=== PATIENT | female | born 2000 | race Two or more races ===

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

== ENCOUNTER 2021-01-07 13:44 | Outpatient (REF) | payer MEDICAID, SELFPAY ==
[2021-01-08 13:48] LABS: CT PCR NOT DETECTED (Not Detect.)
[2021-01-08 13:49] LABS: NG PCR NOT DETECTED (Not Detect.)
[2021-01-09 14:44] LABS: BV Int Neg Control Negative (Negative); BV Int Pos Control Positive (Positive)
== END 2021-01-07 13:45 | disposition home or self-care (01) ==
LOC: HO.LAB 13:44
PROVIDERS: Visit Provider Advanced Practice Midwife
DX: N89.8 Other specified noninflammatory disorders of vagina (principal); Z20.2 Contact with and (suspected) exposure to infections with a predominantly sexual mode of transmission
CPT/HCPCS: 87480; 87491; 87510; 87591; 87660; 99212

== ENCOUNTER → 2021-01-12 13:54 | Outpatient (BNVA) | payer MEDICAID, SELFPAY | PROVIDERS: Visit Provider Advanced Practice Midwife | DX: Z30.42 Encounter for surveillance of injectable contraceptive (principal) | CPT/HCPCS: 96372; 99211 ==

== ENCOUNTER 2021-05-11 11:29 | Outpatient (REF) | payer MEDICAID, SELFPAY ==
[2021-05-12 03:45] LABS: CT PCR NOT DETECTED (Not Detect.); NG PCR NOT DETECTED (Not Detect.)
[2021-05-12 13:11] LABS: BV Int Neg Control Negative (Negative); BV Int Pos Control Positive (Positive)
== END 2021-05-11 11:30 | disposition home or self-care (01) ==
LOC: HO.LAB 11:29
PROVIDERS: Visit Provider Advanced Practice Midwife
DX: Z01.419 Encounter for gynecological examination (general) (routine) without abnormal findings (principal); N89.8 Other specified noninflammatory disorders of vagina; Z20.2 Contact with and (suspected) exposure to infections with a predominantly sexual mode of transmission; Z79.899 Other long term (current) drug therapy; Z32.02 Encounter for pregnancy test, result negative
CPT/HCPCS: 81025; 87480; 87491; 87510; 87591; 87660; 99212

== ENCOUNTER 2021-09-16 21:54 | Emergency (ER) | payer MEDICAID, SELFPAY ==
[2021-09-16 22:04] VITALS: BP 109/82; PULSE 76; RESP 15; TEMP 36.2; O2SAT 98; BMI 19.3
--- NOTE | 2021-09-16 22:25 | ED_ITS ---
HPI - General Adult General Chief complaint: General Medical Stated complaint: throat/head pain Time Seen by Provider: 09/16/21 22:12 Source: patient Mode of arrival: ambulatory Limitations: no limitations History of Present Illness HPI narrative: patient comes to the emergency room complaining of 3 days of sore throat, bilateral ear pain. Patient denies fever. Patient requesting a test, states she is behind on her menstrual. , no vaginal bleeding. Related Data Home Medications Medication Instructions Recorded Confirmed albuterol sulfate 90 mcg/actuation 1 inh inhalation Q4-6H PRN 03/24/20 05/11/21 breath activated powder inhaler sertraline 50 mg tablet 50 mg PO DAILY 05/11/21 05/11/21 Previous Rx's Medication Instructions Recorded metronidazole 0.75 % vaginal gel 1 appful vaginal BEDTIME 5 days 05/13/21 (Metrogel Vaginal) #70 grams Allergies Allergy/AdvReac Type Severity Reaction Status Date / Time No Known Allergies Allergy Verified 05/11/21 11:35 [No Known Allergies*] Review of Systems Review of Systems: Constitutional : No Weight loss, No Fever, No Chills, No Night Sweats, No Fatigue, No Malaise ENT/Mouth : No Hearing loss, Complaining of mild bilateralEar Pain, mild Nasal Congestion, No Sinus Pain, No Hoarseness, mild sore throat, No Rhinorrhea, No Swallowing Difficulty Eyes: No Eye Pain, No Swelling, No Redness, No Foreign Body, No Discharge, No Vision Changes Cardiovascular : No Chest Pain, No SOB, No Dyspnea on Exertion, No Orthopnea, No Edema, No Palpitations Respiratory : No Cough, No Sputum, No Wheezing, No Smoke Exposure, No Dyspnea Gastrointestinal : No Nausea, No Vomiting, No Diarrhea, No Constipation, No abdominal Pain, No Hematochezia, No Melena Genitourinary : late in her menstrual., No Dysuria, No Urinary Frequency, No Hematuria, No Urinary Incontinence, No Urgency, No Flank Pain, No Urinary Flow Changes, No Hesitancy Musculoskeletal : No joint pain, No Myalgias, No Joint Swelling Skin : No Skin Lesions, No rash Neuro : No Weakness, No Numbness, No Paresthesias, No Loss of Consciousness, No Dizziness, No Headache Psych : No Anxiety/Panic, No Depression, No SI/HI/AH/VH, No Social Issues, Heme/Lymph: No Bruising, No Bleeding,No Lymphadenopathy Endocrine : No Polyuria, No Polydipsia, No Temperature Intolerance [facility] Past Medical History Medical History COVID-19 Family History Family History Maternal Grandmother Hx of breast cancer History of uterine cancer Maternal Aunt History of uterine cancer Brother History of attention deficit hyperactivity disorder (ADHD) Social History Social History Household Members: Children Alcohol intake: never Patient Tobacco Use Status: Never used Tobacco Advance Directives: No Advance Directives Information Provided: No Gender identity: Female Physical Exam ED Vital Signs: Vital Signs - 24 hr 09/16/21 22:04 Temperature 97.2 F Pulse Rate 76 Respiratory Rate 15 Blood Pressure 109/82 Pulse Oximetry 98 Oxygen Delivery Method Room Air BMI result Body Mass Index 19.3 Const Other: Appearance: Alert. Oriented X3. No acute distress. Eyes: Pupils equal, round and reactive to light. ENT: Pharynx Mildly erythematous, no exudates, no abscesses visualized Neck: Normal inspection. Neck supple. No lymph nodes noted. No crepitus CVS: Normal heart rate and rhythm. Pulses normal. Normal S1 and S2 Respiratory: No respiratory distress. Breath sounds normal. No Wheezing. No rales Abdomen: Soft and nontender. No rigidity. No distention. Skin: Skin warm and dry. Normal skin color. Normal skin turgor. Extremities: No lower extremity edema. No Lacerations. No Rash Neuro: Oriented X 3. No motor deficit. No sensory deficit. Moving all extremities. No slurred speech. CN 2 through 12 grossly intact Psych: calm, cooperative, normal affect Course Course Course Narrative: patient was given 1 dose of p.o. dexamethasone and lidocaine for symptomatic relief. test pending. COVID/flu/ rapid strep test negative, urine test negative Medical Decision Making Lab Data Labs: Lab Results 09/16/21 09/16/21 09/16/21 Range/Units 22:14 22:14 22:14 Urine Test (NEGATIVE) COVID-19 (KIERA) Negative (Negative) COVID-19 Clin Com See Note Influenza Type A (MARSHALL) Negative (Negative) Influenza Type B (MARSHALL) Negative (Negative) Influenza A & B Note See Note S. pyogenes GrpA MARSHALL Negative (Negative) 09/16/21 Range/Units 22:57 Urine Test NEGATIVE (NEGATIVE) COVID-19 (KIERA) (Negative) COVID-19 Clin Com Influenza Type A (MARSHALL) (Negative) Influenza Type B (MARSHALL) (Negative) Influenza A & B Note S. pyogenes GrpA MARSHALL (Negative) Discharge Plan Discharge Clinical Impression: Acute viral pharyngitis Patient Disposition: Home, Self-Care Instructions: Pharyngitis (ED) Additional Instructions: Your test is negative. Please follow-up with your primary care physician tomorrow. If you have any worsening or new symptoms, please return to the emergency room or call 911 Prescriptions: No Action metronidazole [Metrogel Vaginal] 0.75 % gel 1 appful vaginal BEDTIME 5 Days Qty: 70 0RF albuterol sulfate 90 mcg/actuation aerosol powdr breath activated 1 inh inhalation Q4-6H PRN sertraline 50 mg tablet 50 mg PO DAILY
[2021-09-16 22:32] LABS: IDNOW Serial# 08D9AD1C; Strep A Nucleic Acid Negative (Negative)
[2021-09-16 22:41] LABS: COVID-19 Test Negative (Negative); IDNOW Serial# 16C4AD1C
[2021-09-16 22:42] LABS: Influenza A Negative (Negative); Influenza B2 Negative (Negative)
[2021-09-16] MEDS: Lidocaine HCl Viscous 2 % 15 ML SOLUTION MUCOUS MEM (22:52)
[2021-09-16] MEDS: dexAMETHasone sod phosphate 4 MG/ML VIAL IVPUSH (22:52)
[2021-09-16 23:05] LABS: UPreg QC Valid YES; Urine Pregnancy NEGATIVE (NEGATIVE)
== END 2021-09-16 23:46 | disposition home or self-care (01) ==
PROVIDERS: Emergency Provider Emergency Medicine
DX: J02.8 Acute pharyngitis due to other specified organisms (principal); Z32.02 Encounter for pregnancy test, result negative; Z20.822 Contact with and (suspected) exposure to COVID-19
CPT/HCPCS: 36415; 81025; 87502; 87635; 87651; 96374; 99282; 99284; J1100

== ENCOUNTER 2021-09-24 11:21 | Outpatient (REF) | payer MEDICAID, SELFPAY ==
[2021-09-24 15:48] LABS: CT PCR NOT DETECTED (Not Detect.); NG PCR NOT DETECTED (Not Detect.)
[2021-09-25 15:00] LABS: BV Int Neg Control Negative (Negative); BV Int Pos Control Positive (Positive)
== END 2021-09-24 11:22 | disposition home or self-care (01) ==
LOC: HO.LAB 11:21
PROVIDERS: Visit Provider Advanced Practice Midwife
DX: O26.899 Other specified pregnancy related conditions, unspecified trimester (principal); N89.8 Other specified noninflammatory disorders of vagina; Z20.2 Contact with and (suspected) exposure to infections with a predominantly sexual mode of transmission
CPT/HCPCS: 81025; 87255; 87480; 87491; 87510; 87591; 87660; 99212

== ENCOUNTER 2021-10-11 18:13 | Emergency (ER) | payer MEDICAID, SELFPAY ==
[2021-10-11 18:18] VITALS: BP 126/86; PULSE 104; RESP 18; TEMP 37.2; O2SAT 99; BMI 18.8
[2021-10-11 19:21] LABS: Basophils Percent Auto 0.2 % (0-2); Hematocrit 34.1 % (37.0-47.0); Hemoglobin 11.8 g/dl (12.0-16.0); Imm Gran Abs Auto 0.02 X10*3/uL (0.00-0.03); Imm Gran Pct Auto 0.3 % (0.0-0.4); Lymphocytes Absolute Auto 0.9 X10*3/uL (1.2-4.9); Lymphocytes Percent Auto 14.7 % (20-40); MANUAL DIFF FLAG NO; Mean Corpuscular HGB Conc 34.6 g/dl (31.0-35.0); Mean Corpuscular Hemoglobin 28.7 pg (27.0-33.0); Mean Platelet Volume 10.6 fL (9.4-12.3); Monocytes Absolute Auto 0.4 X10*3/uL (0.1-1.2); Monocytes Percent Auto 7.4 % (2-11); Neutrophils Absolute Auto 4.6 x10*3/uL (2.0-8.3); Neutrophils Percent Auto 77.4 % (45-73); Platelet Count 176 X10*3/uL (160-400); Red Blood Count 4.11 X10*6/uL (4.20-5.50); Red Cell Distribution Width 12.2 % (11.0-16.0); White Blood Count 5.9 X10*3/uL (4.8-10.8)
[2021-10-11 19:39] LABS: Alanine Aminotransferase 14 U/L (0-31); Albumin Level 4.2 g/dL (3.5-5.0); Alkaline Phosphatase 80 U/L (39-117); Anion Gap 11 (12-20); Aspartate Amino Transferase 15 U/L (5-31); Bilirubin Total 0.3 mg/dL (0.0-1.0); Blood Urea Nitrogen 6 mg/dL (9-16); Calcium 8.3 mg/dL (8.4-10.2); Carbon Dioxide 24 mmol/L (22-29); Chloride 101 mmol/L (96-108); Creatinine Clr Calc Pharmacy 134.4; Estimated Glomerular Filt Rate > 60; Glucose Random 93 mg/dL (60-115); Potassium 3.2 mmol/L (3.3-5.1); Sodium 133 mmol/L (135-145); Total Protein 6.9 g/dL (6.5-8.0)
== END 2021-10-11 22:18 | disposition left against medical advice (07) ==
PROVIDERS: Emergency Provider Emergency Medicine
DX: R50.9 Fever, unspecified (principal); E86.0 Dehydration; Z79.899 Other long term (current) drug therapy
CPT/HCPCS: 36415; 80053; 84702; 85025; 99281; 99283

== ENCOUNTER → 2021-10-18 14:00 | Outpatient (BNVA) | payer MEDICAID, SELFPAY | PROVIDERS: Visit Provider Advanced Practice Midwife | DX: O99.511 Diseases of the respiratory system complicating pregnancy, first trimester (principal); J45.909 Unspecified asthma, uncomplicated; O99.341 Other mental disorders complicating pregnancy, first trimester; F41.8 Other specified anxiety disorders; Z3A.09 9 weeks gestation of pregnancy | CPT/HCPCS: 99212 ==

== ENCOUNTER 2021-10-19 09:38 | Outpatient (REF) | payer MEDICAID, SELFPAY ==
[2021-10-19 11:33] LABS: Hematocrit 35.2 % (37.0-47.0); Hemoglobin 11.9 g/dl (12.0-16.0); Mean Corpuscular HGB Conc 33.8 g/dl (31.0-35.0); Mean Corpuscular Hemoglobin 28.5 pg (27.0-33.0); Mean Corpuscular Volume 84.4 fL (80.0-98.0); Mean Platelet Volume 10.8 fL (9.4-12.3); Platelet Count 305 X10*3/uL (160-400); Red Blood Count 4.17 X10*6/uL (4.20-5.50); Red Cell Distribution Width 12.5 % (11.0-16.0); White Blood Count 7.1 X10*3/uL (4.8-10.8)
[2021-10-19 11:44] LABS: Glucose 1 Hour PP 50gm Dose 113 mg/dL (60-140)
[2021-10-19 12:04] LABS: HBsAGNum1 0.22 S/CO (0.00-0.99); HIV AB/AG Nonreactive (Nonreactive); HIV Num 1 0.08 S/CO (0.00-0.99); Hepatitis B Surface Antigen Negative (Negative); ~HepC Num1 0.04 S/CO (0.00-0.79); ~Hepatitis C Antibody Nonreactive (Nonreactive)
[2021-10-19 16:00] LABS: Amphetamine Screen Urine Not Detected (Not Detect); Barbiturates, Urine Not Detected (Not Detect); Benzodiazepines Screen Urine Not Detected (Not Detect); Cannabinoid Screen Urine POSITIVE (Not Detect); Cocaine Screen Urine Not Detected (Not Detect); Fentanyl, urine Not Detected (Not Detect); Opiate Screen Urine Not Detected (Not Detect); Phencyclidine Screen Urine Not Detected (Not Detect)
[2021-10-20 07:09] LABS: Syphilis Screen Nonreactive (Nonreactive)
[2021-10-21 01:51] LABS: Rubella IgG Antibody 1.36 Index
== END 2021-10-19 09:39 | disposition home or self-care (01) ==
LOC: HO.LAB 09:38
PROVIDERS: Visit Provider Advanced Practice Midwife
DX: Z32.01 Encounter for pregnancy test, result positive (principal)
CPT/HCPCS: 80307; 85027; 86762; 86780; 86787; 86803; 86850; 86900; 87086; 87340; 87389

== ENCOUNTER 2021-11-04 11:19 | Outpatient (REF) | payer MEDICAID, SELFPAY ==
[2021-11-05 03:26] LABS: CT PCR NOT DETECTED (Not Detect.); NG PCR NOT DETECTED (Not Detect.)
[2021-11-05 13:19] LABS: BV Int Neg Control Negative (Negative); BV Int Pos Control Positive (Positive)
== END 2021-11-04 11:20 | disposition home or self-care (01) ==
LOC: HO.LAB 11:19
PROVIDERS: Visit Provider Advanced Practice Midwife
DX: Z34.81 Encounter for supervision of other normal pregnancy, first trimester (principal); Z3A.11 11 weeks gestation of pregnancy; Z20.2 Contact with and (suspected) exposure to infections with a predominantly sexual mode of transmission
CPT/HCPCS: 87480; 87491; 87510; 87591; 87660; 99212

== ENCOUNTER → 2021-11-18 14:13 | Outpatient (BNVA) | payer MEDICAID, SELFPAY | PROVIDERS: Visit Provider Surgery | DX: S20.359A Superficial foreign body of unspecified front wall of thorax, initial encounter (principal); L08.9 Local infection of the skin and subcutaneous tissue, unspecified | CPT/HCPCS: 99202 ==

== ENCOUNTER → 2021-12-02 11:03 | Outpatient (BNVA) | payer MEDICAID, SELFPAY | PROVIDERS: Visit Provider Advanced Practice Midwife | DX: Z34.82 Encounter for supervision of other normal pregnancy, second trimester (principal); Z36.3 Encounter for antenatal screening for malformations; Z3A.15 15 weeks gestation of pregnancy | CPT/HCPCS: 99212 ==

== ENCOUNTER 2021-12-23 09:05 | Outpatient (REF) | payer MEDICAID, SELFPAY ==
[2021-12-23 09:10] VITALS: BP 112/65; PULSE 90; RESP 16; TEMP 36.6; O2SAT 100
[2021-12-23 09:11] VITALS: BMI 19.1
--- NOTE | 2021-12-23 09:44 | W.PM.OPN ---
Operative Note Operative Note Date of Service: 12/23/21 Narrative: Preoperative diagnosis: Foreign body anterior neck Postoperative diagnosis: Same Procedure: Removal of foreign body anterior neck Surgeon: Mina Chaudhary MD Transformation Architect: No physician Anesthesia: Local Indications for procedure: 21-year-old female patient status post piercing in the neck with a stud. Piercing has broken and remains within the subcutaneous tissue. She presents today for removal of the remaining foreign body. Operative findings: Piercing of neck as noted above Specimen: Foreign body Estimated blood loss: Less than 1 mL Complications: None Procedure details: Patient was brought to the minor surgery suite and placed in a supine position. The site of surgery was confirmed by the patient. Patient confirmed informed consent as well. Skin was then prepped with Betadine and draped in a sterile fashion. Lidocaine 2% with with epinephrine was then infiltrated around the foreign body. A small transverse incision was then made adjacent to the foreign body and the underlying flange gently removed through the incision. Pressure was held to maintain hemostasis. Skin edges were then reapproximated using skin glue. The patient tolerated the procedure well. Discharged to home in stable condition.
== END 2021-12-23 09:06 | disposition home or self-care (01) ==
LOC: HO.MS 09:05
PROVIDERS: Visit Provider Surgery
PROC: (CPT 10120; principal; 2021-12-23 09:10)
DX: S10.85XA Superficial foreign body of other specified part of neck, initial encounter (principal); Z18.89 Other specified retained foreign body fragments; L08.9 Local infection of the skin and subcutaneous tissue, unspecified; W45.8XXA Other foreign body or object entering through skin, initial encounter; Y93.89 Activity, other specified; Y92.9 Unspecified place or not applicable; Y99.8 Other external cause status
CPT/HCPCS: 10120; 88300

== ENCOUNTER → 2021-12-30 11:27 | Outpatient (BNVA) | payer MEDICAID, SELFPAY | PROVIDERS: PCP Registered Nurse; Visit Provider Advanced Practice Midwife | DX: O98.812 Other maternal infectious and parasitic diseases complicating pregnancy, second trimester (principal); B37.31 Acute candidiasis of vulva and vagina; Z3A.19 19 weeks gestation of pregnancy | CPT/HCPCS: 99212 ==

== ENCOUNTER → 2022-02-03 14:32 | Outpatient (BNVA) | payer MEDICAID, SELFPAY | PROVIDERS: PCP Registered Nurse; Visit Provider Advanced Practice Midwife | DX: O43.112 Circumvallate placenta, second trimester (principal); Z3A.23 23 weeks gestation of pregnancy | CPT/HCPCS: 99212 ==

== ENCOUNTER 2022-03-03 12:20 | Outpatient (REF) | payer MEDICAID, SELFPAY ==
[2022-03-03 14:21] LABS: Hematocrit 32.9 % (37.0-47.0); Hemoglobin 11.5 g/dl (12.0-16.0); Mean Corpuscular Hemoglobin 29.9 pg (27.0-33.0); Mean Corpuscular Volume 85.7 fL (80.0-98.0); Mean Platelet Volume 10.9 fL (9.4-12.3); Platelet Count 202 X10*3/uL (160-400); Red Blood Count 3.84 X10*6/uL (4.20-5.50); Red Cell Distribution Width 13.2 % (11.0-16.0)
[2022-03-03 15:02] LABS: Glucose 1 Hour PP 50gm Dose 74 mg/dL (60-140)
[2022-03-04 08:04] LABS: Syphilis Screen Nonreactive (Nonreactive)
== END 2022-03-03 12:21 | disposition home or self-care (01) ==
LOC: HO.LAB 12:20
PROVIDERS: Visit Provider Advanced Practice Midwife
DX: O43.112 Circumvallate placenta, second trimester (principal); Z3A.27 27 weeks gestation of pregnancy
CPT/HCPCS: 36415; 82950; 85027; 86780; 99212

== ENCOUNTER 2022-09-13 10:35 | Outpatient (REF) | payer MEDICAID, SELFPAY ==
--- NOTE | ~2022-09-13 | XR_ITS ---
EXAMINATION: XR HAND, RIGHT CLINICAL INFORMATION: Injury COMPARISON: None available. TECHNIQUE: PA, lateral, and oblique views of the right hand. FINDINGS: The bones and soft tissues are normal. No fracture. Alignment is anatomic. Joint spaces are maintained. No erosions or soft tissue calcifications. XR/XR hand RT min 3V IMPRESSION: Normal right hand.
== END 2022-09-13 10:36 | disposition home or self-care (01) ==
LOC: HO.HHCX 10:35
PROVIDERS: Visit Provider Internal Medicine
DX: M79.641 Pain in right hand (principal)
CPT/HCPCS: 73130

== ENCOUNTER 2022-12-31 12:18 | Emergency (ER) | payer MEDICAID, SELFPAY ==
[2022-12-31 12:46] VITALS: BP 106/72; PULSE 102; RESP 16; TEMP 36; O2SAT 99
--- NOTE | 2022-12-31 12:48 | ED.ABDPAIN ---
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 no fevers, chills, URI symptoms, urinary symptoms, chest pain, shortness of breath, headache, neck pain, neck stiffness, skin rash. Related Data Home Medications Medication Instructions Recorded Confirmed albuterol sulfate 90 mcg/actuation 1 inh inhalation Q4-6H PRN 03/24/20 02/03/22 breath activated powder inhaler prenat.vits,anthony,[id number] 1 tab PO DAILY 12/02/21 02/03/22 Previous Rx's Medication Instructions Recorded ondansetron 4 mg disintegrating 4 mg PO Q6H PRN nausea and 12/31/22 tablet vomiting #10 tabs Allergies Allergy/AdvReac Type Severity Reaction Status Date / Time No Known Allergies Allergy Verified 12/31/22 12:46 [No Known Allergies*] Review of Systems Review of Systems Yes all other systems are reviewed and are negative Constitutional: Reports no additional constitutional complaints, Denies body ache(s), Denies chills, Denies fever(s), Denies headache(s) and Denies weakness Eyes: Reports no additional eye complaints and Denies change in vision Reports system reviewed and no additional complaints, except as documented, Denies dizziness, Denies headache(s), Denies nasal congestion, Denies nasal discharge and Denies neck pain Cardiovascular: Reports no additional cardiovascular complaints, Denies chest pain, Denies leg edema and Denies dyspnea Respiratory: Reports no additional respiratory complaints, Denies cough and Denies dyspnea Gastrointestinal: Reports no additional gastrointestinal complaints, Denies abdominal pain, Reports diarrhea, Reports nausea and Reports vomiting Genitourinary: Reports no additional female genitourinary complaints and Denies urinary incontinence Musculoskeletal: Reports no additional musculoskeletal complaints, Reports back pain, Denies arthralgias, Denies joint swelling, Denies neck pain, Denies numbness and Denies tingling Skin/Breast: Reports system reviewed and no additional complaints, except as docu and Denies rash Reports system reviewed and no additional complaints, except as documented, Denies Abnormal speech present, Denies dizziness, Denies headache(s), Denies numbness, Denies tingling and Denies weakness [facility] Past Medical History Attestation statement: The following information was validated with the patient. Source: old records reviewed and nursing notes reviewed Medical History Personal history of asthma COVID-19 History of depression Personal history of anxiety disorder Family history of asthma and other chronic lower respiratory diseases Surgical History History of retained foreign body fully removed (12/23/21) Family History Family History Maternal Grandmother Hx of breast cancer Diabetes mellitus Maternal Aunt No problems noted. Brother History of attention deficit hyperactivity disorder (ADHD) Daughter Family history of sickle cell trait Autism Mother Hydrocephalus Social History Social History Household Members: Children Housing: Apartment Are you a primary coronary care unit nurse to a significant other at home: No Do you presently have visiting nurse or other home services: No Alcohol intake: never Patient Tobacco Use Status: Never used Tobacco Agree to transfusion: Yes Advance Directives: No Advance Directives Information Provided: Yes service: No Current occupational status: unemployed Gender identity: Female Physical Exam ED Vital Signs: Vital Signs - 24 hr 12/31/22 12:46 Temperature 96.8 F Pulse Rate 102 H Respiratory Rate 16 Blood Pressure 106/72 Pulse Oximetry 99 Oxygen Delivery Method Room Air BMI result Body Mass Index 20.0 Const General: cooperative, healthy appearing, comfortable and no acute distress Orientation/consciousness: patient oriented x3 Limitations: no limitations HENPA Head: Yes normal to inspection Ears: hearing grossly normal bilaterally General nose exam: Normal external nose present Face and sinus: Yes normal facial exam Mouth: Normal oral and palatal mucosa present Throat: Yes posterior oropharynx normal Eyes General: appearance normal, both eyes and all related structures Pupils: Equal, round and reactive pupils present Neck Neck: Yes normal visual inspection Chest Chest palpation & inspection: normal inspection of the chest Resp Effort & Inspection: normal respiratory effort Auscultation: clear to auscultation bilaterally Cardio Rate: regular rate Rhythm: regular rhythm Peripheral pulses: Peripheral pulses 2+ throughout GI Inspection: Yes normal to inspection and No distended Palpation (GI): Soft to palpation and nontender Auscultation: normal bowel sounds General: Yes CVA tenderness ( Bilateral) Back/Spine/Pelvis Back: CVA tenderness ( Bilateral) Thoracic/Lumbar Spine: thoracic and lumbar spine normal to inspection Skin General skin exam: no rashes or lesions noted Neuro General: patient oriented x3, no focal motor deficits and normal sensation to monofilament Cranial nerves: Yes Equal, round and reactive pupils present Cognition (Neuro): normal cognition Speech: No Abnormal speech present Gait exam (Neuro): Normal gait present Motor exam (neuro): 5/5 motor strength present throughout Extrem General: Yes normal to inspection Course Course Course Narrative: RME - 22 yo Japanese speaking female presents to the ER for evaluation of acute onset of bilateral upper abdominal/lower rib pain, nausea, vomiting and diarrhea that started last night. Described as a pressure of being squeezed in her lower ribs and upper abdomen bilaterally. Has some congestion and left ear pain w/ muffling. Plan: labs, CXR, viral swabs Reevaluation(s) Reevaluation #1: 1330- labs show leukocytosis. Patient will receive IV fluids, antiemetics, analgesia Reevaluation #2: have after hydration we did a repeat CBC which shows an improving leukocytosis. Patient is drinking sandra milana with no additional vomiting episodes. All of her labs unremarkable. Her initial urine was contaminated but she had a repeat urinalysis which was unremarkable. Her viral testing was negative her chest x-ray shows no 7 signs of infection. This is likely a viral syndrome. Recommend supportive care at home. Reviewed worrisome signs and symptoms of when to return to the emergency room. Comfortable plan for discharge home. Medical Decision Making Medical Decision Making [facility] Narrative: 22-year-old female previously healthy here with complaints of flank pain bilateral, vomiting, diarrhea with waking. no fevers, chills, URI symptoms, urinary symptoms, chest pain, shortness of breath, headache, neck pain, neck stiffness, skin rash. on exam patient has bilateral CVA tenderness. No focal abdominal pain. Her vitals are stable. Will obtain labs, UA, urine , COVID testing, chest x-ray. Differential Diagnosis Differential Diagnoses: The differential diagnosis associated with the presentation includes Pyelonephritis, renal colic, UTI viral syndrome, gastroenteritis low concern for appendicitis with no focal abdominal pain Admission/Observation Consideration of admission/observation: Escalation of care including admission/observation considered patient is tolerating p.o.. Her repeat labs are improved. Her workup in the emergency room was unremarkable. I do not feel that she needs additional imaging or admission for IV hydration. Lab Data MDM Lab Attestation statement: I reviewed the patient's lab results. Mild leukocytosis 12/31/22 16:05 12/31/22 12:56 Labs: Lab Results 12/31/22 12/31/22 12/31/22 Range/Units 12:56 13:39 13:45 WBC 19.5 H (4.8-10.8) X10*3/uL RBC 5.46 D (4.20-5.50) X10*6/uL Hgb 15.4 D (12.0-16.0) g/dl Hct 44.4 D (37.0-47.0) % MCV 81.3 (80.0-98.0) fL MCH 28.2 (27.0-33.0) pg MCHC 34.7 (31.0-35.0) g/dl RDW 12.7 (11.0-16.0) % Plt Count 335 D (160-400) X10*3/uL MPV 10.8 (9.4-12.3) fL Immature Gran % (Auto) 0.4 (0.0-0.4) % Neut % (Auto) 90.3 H (45-73) % Lymph % (Auto) 4.6 L (20-40) % [place] % (Auto) 3.6 (2-11) % Eos % (Auto) 0.8 (0-4) % Baso % (Auto) 0.3 (0-2) % Lymph # (Auto) 0.9 L (1.2-4.9) X10*3/uL [place] # (Auto) 0.7 (0.1-1.2) X10*3/uL Eos # (Auto) 0.2 (0.0-0.4) X10*3/uL Baso # (Auto) 0.1 (0.0-0.2) X10*3/uL Abs Immat Gran (auto) 0.08 H (0.00-0.03) X10*3/uL Absolute Neuts (auto) 17.6 H (2.0-8.3) x10*3/uL Absolute Nucleated RBC 0.000 (0.0-0.012) X10*3/uL Nucleated RBC % (auto) 0.0 (0.0-0.2) /100WBC Smear Tech's Comments VERIFIED Sodium 139 (135-145) mmol/L Potassium 4.3 D (3.3-5.1) mmol/L Chloride 105 (96-108) mmol/L Carbon Dioxide 21 L (22-29) mmol/L Anion Gap 17 (12-20) BUN 14 (9-16) mg/dL Creatinine 0.84 (0.5-1.4) mg/dL Estim Creat Clear Calc 91.3 Estimated GFR > 60 Random Glucose 99 (60-115) mg/dL Lactic Acid 0.8 (0.5-2.0) mmol/L Calcium 10.3 H D (8.4-10.2) mg/dL Magnesium 2.0 (1.6-2.6) mg/dL Total Bilirubin 0.4 (0.0-1.0) mg/dL Direct Bilirubin 0.2 (0.0-0.5) mg/dL AST 17 (5-31) U/L ALT 12 (0-31) U/L Alkaline Phosphatase 102 (39-117) U/L Total Protein 8.6 H (6.5-8.0) g/dL Albumin 5.1 H (3.5-5.0) g/dL Lipase 30 (8-78) U/L Beta HCG, Quant < 2 mIU/mL Urine Color Dark Yellow Urine Appearance Cloudy Urine pH 5.5 (5.0-9.0) Ur Specific [place] >= 1.030 H (1.005-1.025) Urine Protein 100 (2+) H (Neg-Trace) mg/dL Urine Glucose (UA) Negative (Negative) mg/dL Urine Ketones Trace (Negative) mg/dL Urine Blood Negative (Negative) Urine Nitrite Negative (Negative) Ur Leukocyte Esterase Small (1+) H (Negative) Urine RBC 3-5 H (0-2) /HPF Urine WBC 6-10 H (0-5) /HPF Ur Squamous Epith Cells >20 (0-2) /HPF Urine Bacteria 3+ (None Seen) Hyaline Casts >20 (0-2) /LPF Urine Test NEGATIVE (NEGATIVE) Influenza Type A (PCR) NEGATIVE (Negative) Influenza Type B (PCR) NEGATIVE (Negative) RSV RNA Qual (PCR) NEGATIVE (Negative) SARS-CoV-2 RNA (RT-PCR) NEGATIVE (Negative) 12/31/22 12/31/22 Range/Units 15:47 16:05 WBC 13.3 H (4.8-10.8) X10*3/uL RBC 4.40 (4.20-5.50) X10*6/uL Hgb 12.6 (12.0-16.0) g/dl Hct 36.1 L (37.0-47.0) % MCV 82.0 (80.0-98.0) fL MCH 28.6 (27.0-33.0) pg MCHC 34.9 (31.0-35.0) g/dl RDW 12.5 (11.0-16.0) % Plt Count 234 D (160-400) X10*3/uL MPV 10.5 (9.4-12.3) fL Immature Gran % (Auto) 0.4 (0.0-0.4) % Neut % (Auto) 88.2 H (45-73) % Lymph % (Auto) 7.5 L (20-40) % [place] % (Auto) 2.9 (2-11) % Eos % (Auto) 0.8 (0-4) % Baso % (Auto) 0.2 (0-2) % Lymph # (Auto) 1.0 L (1.2-4.9) X10*3/uL [place] # (Auto) 0.4 (0.1-1.2) X10*3/uL Eos # (Auto) 0.1 (0.0-0.4) X10*3/uL Baso # (Auto) 0.0 (0.0-0.2) X10*3/uL Abs Immat Gran (auto) 0.05 H (0.00-0.03) X10*3/uL Absolute Neuts (auto) 11.7 H (2.0-8.3) x10*3/uL Absolute Nucleated RBC 0.000 (0.0-0.012) X10*3/uL Nucleated RBC % (auto) 0.0 (0.0-0.2) /100WBC Smear Tech's Comments Sodium (135-145) mmol/L Potassium (3.3-5.1) mmol/L Chloride (96-108) mmol/L Carbon Dioxide (22-29) mmol/L Anion Gap (12-20) BUN (9-16) mg/dL Creatinine (0.5-1.4) mg/dL Estim Creat Clear Calc Estimated GFR Random Glucose (60-115) mg/dL Lactic Acid (0.5-2.0) mmol/L Calcium (8.4-10.2) mg/dL Magnesium (1.6-2.6) mg/dL Total Bilirubin (0.0-1.0) mg/dL Direct Bilirubin (0.0-0.5) mg/dL AST (5-31) U/L ALT (0-31) U/L Alkaline Phosphatase (39-117) U/L Total Protein (6.5-8.0) g/dL Albumin (3.5-5.0) g/dL Lipase (8-78) U/L Beta HCG, Quant mIU/mL Urine Color Yellow Urine Appearance Clear Urine pH 5.5 (5.0-9.0) Ur Specific [place] 1.025 (1.005-1.025) Urine Protein Negative (Neg-Trace) mg/dL Urine Glucose (UA) Negative (Negative) mg/dL Urine Ketones Negative (Negative) mg/dL Urine Blood Negative (Negative) Urine Nitrite Negative (Negative) Ur Leukocyte Esterase Negative (Negative) Urine RBC (0-2) /HPF Urine WBC (0-5) /HPF Ur Squamous Epith Cells (0-2) /HPF Urine Bacteria (None Seen) Hyaline Casts (0-2) /LPF Urine Test (NEGATIVE) Influenza Type A (PCR) (Negative) Influenza Type B (PCR) (Negative) RSV RNA Qual (PCR) (Negative) SARS-CoV-2 RNA (RT-PCR) (Negative) Independent Interpretation I performed an independent interpretation of an: Plain X-Ray Interpretation: I independently reviewed the x-ray and agree with the radiology report Radiology Impression Discussion of test interpretation with radiology: I have reviewed the radiologist's reading. Radiologist Impression: [place] [address] XRay Report Signed Patient: Ashanti Ontiveros MR#: [id number] : 2000 Acct:[id number] Age/Sex: 22 / F ADM Date: 12/31/22 Loc: .ED Attending Dr: Ordering Physician: Keri Robert Date of Service: 12/31/22 Procedure(s): XR chest 2V Accession Number(s): [id number] cc: Keri Robert; [facility]~ EXAMINATION: XR CHEST CLINICAL INFORMATION: Lower rib pain. COMPARISON: None available. TECHNIQUE: 2 views of the chest were obtained. FINDINGS: No significant abnormality is noted involving the heart, lungs, mediastinum, bony thorax or soft tissues. XR/XR chest 2V IMPRESSION: Unremarkable examination. Specifically, no radiographic evidence of any displaced rib fracture or hemopneumothorax or lung contusion is seen. Independent Historian Clinical information obtained from an independent historian. History obtained from or confirmed by: Friend Tests considered The following testing was considered but not selected: no focal abdominal pain to suggest need for CT abdomen and pelvis Prescription Management I considered prescription management with: Antibiotic Medications Administered Discontinued Medications Generic Name Dose Route Start Last Admin Trade Name Freq PRN Reason Stop Dose Admin Sodium Chloride 1,000 mls @ 999 mls/hr 12/31/22 13:12 12/31/22 14:50 Ns IV 12/31/22 14:12 Infused .Q1H1M STA Infusion Ketorolac Tromethamine 30 mg 12/31/22 13:12 12/31/22 13:46 Ketorolac Tromethamine 30 Mg/Ml Vial IVPUSH 12/31/22 13:13 30 mg ONCE ONE Administration Ondansetron HCl 4 mg 12/31/22 13:12 12/31/22 13:46 Ondansetron Hcl 4 Mg/2 Ml Vial IVPUSH 12/31/22 13:13 4 mg ONCE ONE Administration Discharge Plan Discharge Clinical Impression: Acute viral syndrome Patient Disposition: Home, Self-Care Instructions: Viral Syndrome (ED) Additional Instructions: alternate Motrin and Tylenol for pain or fever as needed Increase fluids, rest Return for any worsening symptoms Your COVID testing is negative alterne Motrin y Tylenol para el dolor o la fiebre seg?n sea necesario Aumentar l?quidos, descansar. Regrese si los s?ntomas empeoran. Espinosa prueba de COVID es negativa Prescriptions: New ondansetron 4 mg tablet,disintegrating 4 mg PO Q6H PRN (Reason: nausea and vomiting) Qty: 10 0RF No Action albuterol sulfate 90 mcg/actuation aerosol powdr breath activated 1 inh inhalation Q4-6H PRN prenat.vits,anthony,[id number] Tablet 1 tab PO DAILY Referrals: Susie Nascimento, [facility] [Primary Care Provider] - 1 week Interventions: ED Discharge Assessment Last Done: 12/31/22 16:35 Print Language: Japanese
[2022-12-31 13:17] LABS: Alanine Aminotransferase 12 U/L (0-31); Albumin Level 5.1 g/dL (3.5-5.0); Alkaline Phosphatase 102 U/L (39-117); Anion Gap 17 (12-20); Aspartate Amino Transferase 17 U/L (5-31); Bilirubin Direct 0.2 mg/dL (0.0-0.5); Bilirubin Total 0.4 mg/dL (0.0-1.0); Blood Urea Nitrogen 14 mg/dL (9-16); Calcium 10.3 mg/dL (8.4-10.2); Carbon Dioxide 21 mmol/L (22-29); Chloride 105 mmol/L (96-108); Creatinine Clr Calc Pharmacy 91.3; Estimated Glomerular Filt Rate > 60; Glucose Random 99 mg/dL (60-115); Lipase 30 U/L (8-78); Potassium 4.3 mmol/L (3.3-5.1); Sodium 139 mmol/L (135-145); Total Protein 8.6 g/dL (6.5-8.0)
[2022-12-31 13:39] LABS: HCG Quantitative < 2 mIU/mL
--- NOTE | 2022-12-31 13:50 | PC.NURSE ---
1st set of cultures obtained, medicated per MAY, 1L NS running.
== END 2022-12-31 16:38 | disposition home or self-care (01) ==
PROVIDERS: Physician Assistant; Emergency Provider Emergency Medicine Emergency Medical Services; PCP Registered Nurse
DX: B34.9 Viral infection, unspecified (principal); R11.2 Nausea with vomiting, unspecified; R10.10 Upper abdominal pain, unspecified; Z20.822 Contact with and (suspected) exposure to COVID-19; Z20.828 Contact with and (suspected) exposure to other viral communicable diseases
CPT/HCPCS: 0241U; 36415; 71046; 80048; 80076; 81001; 81003; 81025; 83605; 83690; 83735; 84702; 85025; 87040; 87086; 96361; 96374; 96375; 99283; 99284; J1885; J2405

== ENCOUNTER 2023-07-21 09:45 | Outpatient (REF) | payer MEDICAID, SELFPAY ==
[2023-07-22 06:54] LABS: CT PCR NOT DETECTED (Not Detect.); NG PCR NOT DETECTED (Not Detect.)
[2023-07-23 11:42] LABS: BV Int Neg Control Negative (Negative); BV Int Pos Control Positive (Positive)
== END 2023-07-21 09:46 | disposition home or self-care (01) ==
LOC: HO.LNP 09:45
PROVIDERS: PCP Registered Nurse; Visit Provider Advanced Practice Midwife
DX: Z12.4 Encounter for screening for malignant neoplasm of cervix (principal); Z11.51 Encounter for screening for human papillomavirus (HPV); N89.8 Other specified noninflammatory disorders of vagina; Z20.2 Contact with and (suspected) exposure to infections with a predominantly sexual mode of transmission; B37.31 Acute candidiasis of vulva and vagina; Z98.51 Tubal ligation status
CPT/HCPCS: 0353U; 87480; 87510; 87660; 88142; 99395

== ENCOUNTER 2023-07-21 09:45 | Outpatient (AMB) | payer MEDICAID, SELFPAY ==
[2023-07-21 09:58] VITALS: BP 102/60; BMI 21.0
--- NOTE | 2023-07-21 09:58 | MHC.OFFVIS ---
Vital Signs 07/21/23 09:58 Height 5 ft 5 in Weight 126 lb BMI 21.0 BP 102/60 Intake Visit Reasons: ? infection Intake Note: having vaginal burning, discharge and odor Locator Specialist Required: No Information Interpreted: non-clinical & clinical International First Officer: International First Officer Present (Lisette) Allergies No Known Allergies [No Known Allergies*] Allergy (Verified 07/21/23 09:59) Medication List - Last Reviewed 07/21/23 by DAISY Davila albuterol sulfate 90 mcg/actuation 1 inh inhalation Q4-6H PRN Is last menstrual period known: Yes Last menstrual period: 06/30/23 Post menopausal: No HPI HPI ? infection: Details: Patient is here with her [id number] baby to get checked for problematic discharge that causes itching and burning and a bad odor and discharge. She had not been seen since she delivered at [facility]. She says she had her tubes tied at [facility]. She will be meeting her new primary care provider on August 03. She has no particular worries about STDs but is open to blood work testing as well. She breastfed her baby for about a month her other 2 children are very well to she is happy she got her tubes tied and she has not having any other medical problems at [facility] Medical History (Updated 07/21/23 @ 10:13 by Judith Bullock CNM) Personal history of asthma COVID-19 History of depression Personal history of anxiety disorder Family history of asthma and other chronic lower respiratory diseases Surgical History (Updated 07/21/23 @ 10:13 by Judith Bullock CNM) Hx of tubal ligation History of retained foreign body fully removed (12/23/21) Family History Maternal Grandmother Hx of breast cancer Diabetes mellitus Maternal Aunt No problems noted. Brother History of attention deficit hyperactivity disorder (ADHD) Daughter Family history of sickle cell trait Autism Mother Hydrocephalus Social History Household Members: Children Both parents involved: Yes Caregiver staying overnight: No Housing: Apartment Are you a primary patient care to a significant other at home: No Do you presently have visiting nurse or other home services: No 75 years or older and lives alone: No Alcohol intake: never Patient Tobacco Use Status: Never used Tobacco Agree to transfusion: Yes service: No Current occupational status: unemployed Gender identity: Female Female Reproductive History Menstrual Age of Menarche: 13 Date of last menstrual period: 06/30/23 control method: other (tubal ligation) Total pregnancies: 3 Full term: 3 Number of Living Children: 3 Physical Exam Vital Signs: Last Vital Signs BP 102/60 07/21/23 09:58 BMI result Body Mass Index 21.0 Const General: healthy appearing, comfortable, no acute distress, well developed and alert Nutritional Appearance: average body habitus Orientation/consciousness: patient oriented x3 Limitations: no limitations HEENT Head: Yes normocephalic Neck Neck: Yes normal visual inspection Chest Chest palpation & inspection: normal inspection of the chest Breast/axilla inspection: normal inspection of the breasts and normal inspection of the axillae Breast/axilla palpation: normal palpation of the breasts and normal palpation of the axillae Resp Effort & Inspection: normal respiratory effort GI Inspection: Yes normal to inspection, No Abdominal wall edema and No distended Palpation (GI): Soft to palpation and nontender Other: Some labial minora erythema noted and a slight pinkness around vulva faint white discharge consistent with extreme meanwhile yeast cervix multiparous discharge is otherwise clear no malodor appreciated uterus is small anteverted mobile nontender adnexa nontender good tone Kegel General: Yes bladder normal to palpation External Female Exam: normal external appearance and normal appearance of the urethra Speculum Exam - Vagina: normal appearance of the vagina, normal palpation and normal vaginal discharge Speculum Exam - Cervix: normal appearance of the cervix, normal palpation and nontender Bimanual exam- vagina & uterus: normal bimanual exam, normal palpation, uterine size normal, bladder normal to palpation, consistency normal, normal palpation, uterine mobility normal, uterine shape normal, No Cervical tenderness present, non-tender and no cervical motion tenderness Bimanual Exam- Adnexa, other: normal adnexae, no masses, normal and No adnexal tenderness Neuro General: patient oriented x3 Assessment & Plan Assessment & Plan (1) Cervical cancer screening: Code(s): Z12.4 - Encounter for screening for malignant neoplasm of cervix Category: Medical (2) Potential exposure to STD: Code(s): Z20.2 - Contact with and (suspected) exposure to infections with a predominantly sexual mode of transmission Category: Medical (3) Problematic vaginal discharge: Code(s): N89.8 - Other specified noninflammatory disorders of vagina Category: Medical (4) Yeast infection involving the vagina and surrounding area: Code(s): B37.31 - Acute candidiasis of vulva and vagina Category: Medical (5) Hx of tubal ligation: Code(s): Z98.51 - Tubal ligation status Category: Surgical Plan Patient is here to check on of vaginal discharge that was causing her itching and burning and little bit of an odor but since she had not been seen for visit and she had never had her 1st Pap smear as she turned 22 last year I via her Pap smear and covered other issues as well she will be meeting her new primary care provider on August 03 she has new problems at all she is healthy taking care of herself she nursed her baby for about a year she is happy she had her tubes tied she is getting regular periods and her last period was June 29 and it was a 5 days and it was normal she said she had a gel before for an infection and it did not work for her but since this appears to be a mild mild yeast infection prescribe Monistat cream that she can use for 7 days or less and I will send refills as well she wants to get blood work for STIs and she can go to the lab for that today she is on the portal so she can get her results that way but we would call her for positive. Medications: New miconazole nitrate 2% (Miconazole-7) 1 appful vaginal BEDTIME 7 days 45 grams 2RF Coding Level of Care Code Est Pt Prev Care 18-39y(38330) Diagnoses Cervical cancer screening Z12.4 Potential exposure to STD Z20.2 Problematic vaginal discharge N89.8 Yeast infection involving the vagina and surrounding area B37.31 Hx of tubal ligation Z98.51
== END 2023-07-21 10:39 | disposition home or self-care (01) ==
PROVIDERS: PCP Registered Nurse; Visit Provider Advanced Practice Midwife
DX: Z12.4 Encounter for screening for malignant neoplasm of cervix (principal); Z20.2 Contact with and (suspected) exposure to infections with a predominantly sexual mode of transmission; N89.8 Other specified noninflammatory disorders of vagina; B37.31 Acute candidiasis of vulva and vagina; Z98.51 Tubal ligation status
CPT/HCPCS: 99395

== ENCOUNTER 2023-09-06 10:56 | Outpatient (AMB) | payer MEDICAID, SELFPAY ==
--- NOTE | 2023-09-06 11:01 | A.OFFVIS_ITS ---
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 Patient reports a lump at the gutierrez aspect of hand that has been present for 2 years and has been growing in size. States pain that starts at the the lump and radiates up her arm to her shoulder. Occasional numbness and tingling. No previous tx. Denies injury. 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 She reports she has a lump at the palmar aspect of her hand for 2 years that has been growing in size. She also states she has pain that starts at the lump and radiates up to her arm and shoulder and the lump gets bigger in size when painful. She also experiences occasional numbness and tingling in her hand. She denies any recent injury and has not had any treatment in the past. [facility] Medical History (Updated 09/06/23 @ 11:20 by Pawan Villafana PA-C) Personal history of asthma COVID-19 History of depression Personal history of anxiety disorder Family history of asthma and other chronic lower respiratory diseases Surgical History Hx of tubal ligation History of retained foreign body fully removed (12/23/21) Family History Maternal Grandmother Hx of breast cancer Diabetes mellitus Maternal Aunt No problems noted. Brother History of attention deficit hyperactivity disorder (ADHD) Daughter Family history of sickle cell trait Autism Mother Hydrocephalus Social History (Updated 09/06/23 @ 11:12 by Jami La [facility]) Household Members: Children Both parents involved: Yes Caregiver staying overnight: No Housing: Apartment Are you a primary patient care coordinator to a significant other at home: No Do you presently have visiting nurse or other home services: No 75 years or older and lives alone: No Alcohol intake: never Patient Tobacco Use Status: Never used Tobacco Agree to transfusion: Yes service: No Current occupational status: employed 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, 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 Gender identity: Female Female Reproductive History Menstrual Age of Menarche: 13 Review of Systems Const All systems reviewed & are unremarkable except as noted in HPI and below Physical Exam Vital Signs: BMI result Body Mass Index 21.0 Const General: cooperative, healthy appearing, comfortable, no acute distress, well developed and alert Orientation/consciousness: patient oriented x3 HEENT Head: Yes normal to inspection, Yes normocephalic and Yes atraumatic Eyes General: appearance normal, both eyes and all related structures Resp Effort & Inspection: normal respiratory effort and able to speak in complete sentences Cardio Rate: regular rate Peripheral pulses: Peripheral pulses 2+ throughout GI Palpation (GI): Soft to palpation Skin Lesions: no lesions Rashes: no rashes Neuro General: patient oriented x3 Extrem Other: Right hand: Normal to inspection. She has a pebble sized cyst at the palmar aspect of her hand in line with the thenar eminence. No tenderness to palpation. It is mobile. NVI. Assessment & Plan Assessment & Plan (1) Lipoma: Code(s): D17.9 - Benign lipomatous neoplasm, unspecified Category: Medical (2) Hand pain, right: Code(s): M79.641 - Pain in right hand Category: Medical Plan An MRI with and without contrast was ordered to further evaluate the structures and determine the treatment. Once the scan is complete, she will see us back to discuss the results. Orders: Orders MR hand RT wo/w con Today D17.9 - Benign lipomatous neoplasm, unspecified, M79.641 - Pain in right hand Patient Instructions: Scribed for Pawan Villafana PA-C, by Tyler Manley medical receptionist assistant, on 09/06/2023 at 11:00 AM EST.? I, Pawan Villafana PA-C, have personally reviewed and agree with the information entered by the scribe. Coding Level of Care Code New Pt Level 3 (58402) Diagnoses Lipoma D17.9 Hand pain, right M79.643
[2023-09-06 11:03] VITALS: BMI 21.0
== END 2023-09-06 11:37 | disposition home or self-care (01) ==
PROVIDERS: PCP Nurse Practitioner Family; Visit Provider Physician Assistant
DX: D17.9 Benign lipomatous neoplasm, unspecified (principal); M79.641 Pain in right hand
CPT/HCPCS: 99203

== ENCOUNTER → 2023-09-06 10:56 | Outpatient (BNVA) | payer MEDICAID, SELFPAY | PROVIDERS: PCP Registered Nurse; Visit Provider Physician Assistant | DX: D17.9 Benign lipomatous neoplasm, unspecified (principal); M79.641 Pain in right hand | CPT/HCPCS: 99212 ==

== ENCOUNTER 2023-10-25 13:14 | Outpatient (AMB) | payer MEDICAID, SELFPAY ==
[2023-10-25 13:20] VITALS: BP 120/70; BMI 21.6
--- NOTE | 2023-10-25 13:20 | A.OFFVIS_ITS ---
Vital Signs 10/25/23 13:20 Height 5 ft 5 in Weight 130 lb BMI 21.6 BP 120/70 Intake Visit Reasons: STD Testing Information Interpreted: clinical only Primary Care Provider: Primary Care Provider Present Allergies No Known Allergies [No Known Allergies*] Allergy (Verified 10/25/23 13:23) Medication List - Last Reconciled 10/25/23 by Judith Bullock CNM albuterol sulfate 90 mcg/actuation 1 inh inhalation Q4-6H PRN Is last menstrual period known: Yes Last menstrual period: 09/25/23 HPI HPI STD Testing: Details: Patient is here with a 1-year-old son to get STD testing she is not worried about anything in particular and does not have any symptoms but she just wants to get checked. She also wants to get blood work for STIs. She had her tubes tied after the of her last baby at [facility] last year and she is happy she has 3 children the 1-year-old and also the 3-year-old in the 5-year-old the 3 and 5-year-old are on vacation in [place] with her grandmother and live a 2 [place] the beach so they are having a very good time this summer. [facility] Medical History Personal history of asthma COVID-19 History of depression Personal history of anxiety disorder Family history of asthma and other chronic lower respiratory diseases Surgical History Hx of tubal ligation History of retained foreign body fully removed (12/23/21) Family History Maternal Grandmother Hx of breast cancer Diabetes mellitus Maternal Aunt No problems noted. 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, 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 Gender identity: Female Female Reproductive History Menstrual Age of Menarche: 13 Date of last menstrual period: 09/25/23 control method: permanent sterilization Date of last pap smear: 07/21/23 (negative) Physical Exam Vital Signs: Last Vital Signs BP 120/70 10/25/23 13:20 BMI result Body Mass Index 21.6 External Female Exam: normal external appearance and normal appearance of the urethra Speculum Exam - Vagina: normal appearance of the vagina and normal vaginal discharge Speculum Exam - Cervix: normal appearance of the cervix and Cervical os closed Results Reviewed Results Reviewed: Name: Ashanti Ontiveros Age/Sex: 22/F Attending: Judith Bullock CNM : 2000 Submitted by: Judith Bullock CNM Copies to: [facility] MR #: [id number] Status: DEP REF Collected: 07/21/23 Location: [facility] Received: 07/25/23 Interpretation Satisfactory for evaluation. Negative for intraepithelial lesion or malignancy. Clinical Information LMP: 06/30/23 Previous PAP test: No pap hx Material Received ThinPrep-Cervical Copies To Judith Bullock CNM [address] [place] [address] [place] [address] [facility] [address] [place] [address] Electronically Signed By: Priti Wheeler 08/12/23 5781 The Pap Test is a screening procedure with the inherent possibility of both false negative and false positive results. Results should be interpreted in the context of historic and current clinical findings. Reliability of the Pap Test is enhanced by performing the test on a regular repetitive basis. Patient: Ashanti Ontiveros Age/Sex: 22/F MR#: [id number] Page 1 of 1 Assessment & Plan Assessment & Plan (1) Potential exposure to STD: Code(s): Z20.2 - Contact with and (suspected) exposure to infections with a predominantly sexual mode of transmission Category: Medical (2) Hx of tubal ligation: Code(s): Z98.51 - Tubal ligation status Category: Surgical (3) Cervical cancer screening: Comment: 07/21/2023 Pap is negative. Code(s): Z12.4 - Encounter for screening for malignant neoplasm of cervix Category: Medical Plan Reviewed her contentment with her tubal ligation. Placed orders for HIV testing hepatitis B hepatitis C and syphilis testing. She is able to get the results. We will see her for her annual exams she had a normal Pap smear this year. Safer sex reviewed. Orders: Orders Hepatitis B Surface Antigen Today Z20.2 - Contact with and (suspected) exposure to infections with a predominantly sexual mode of transmission Hepatitis C Antibody Today Z20.2 - Contact with and (suspected) exposure to infections with a predominantly sexual mode of transmission HIV Ab/Ag Today Z20.2 - Contact with and (suspected) exposure to infections with a predominantly sexual mode of transmission Syphilis Screen Today Z20.2 - Contact with and (suspected) exposure to infections with a predominantly sexual mode of transmission Coding Level of Care Code Est Pt Level 3 (42287) Diagnoses Potential exposure to STD Z20.2 Hx of tubal ligation Z98.51 Cervical cancer screening Z12.4
== END 2023-10-25 14:21 | disposition home or self-care (01) ==
LOC: HO.HWSM 13:14
PROVIDERS: PCP Nurse Practitioner Family; Visit Provider Advanced Practice Midwife
DX: Z20.2 Contact with and (suspected) exposure to infections with a predominantly sexual mode of transmission (principal); Z98.51 Tubal ligation status; Z12.4 Encounter for screening for malignant neoplasm of cervix
CPT/HCPCS: 99213

== ENCOUNTER 2023-10-25 13:14 | Outpatient (REF) | payer MEDICAID, SELFPAY ==
[2023-10-26 05:06] LABS: CT PCR NOT DETECTED (Not Detect.); NG PCR NOT DETECTED (Not Detect.)
[2023-10-26 09:45] LABS: Bacterial Vaginosis PCR POSITIVE (Negative); Candida Group PCR NOT DETECTED (Not Detect); Candida glab krusei PCR NOT DETECTED (Not Detect); Trichomonas vaginalis PCR NOT DETECTED (Not Detect)
== END 2023-10-25 13:15 | disposition home or self-care (01) ==
LOC: HO.LAB 13:14
PROVIDERS: PCP Nurse Practitioner Family; Visit Provider Advanced Practice Midwife
DX: Z20.2 Contact with and (suspected) exposure to infections with a predominantly sexual mode of transmission (principal); N89.8 Other specified noninflammatory disorders of vagina; Z98.51 Tubal ligation status
CPT/HCPCS: 0352U; 87491; 87591; 99212

== ENCOUNTER 2023-11-09 11:22 | Outpatient (REF) | payer MEDICAID, SELFPAY ==
--- NOTE | ~2023-11-09 | MR_ITS ---
EXAMINATION: MRI OF THE HAND WITHOUT AND WITH CONTRAST. CLINICAL INFORMATION: Benign lipomatous neoplasm. Cyst-like structure right palmar aspect of hand near thumb. Patient reports bump on palm of hand. Lump is growing symptoms for a proximal 7 years COMPARISON: X-rays of the right hand August 2022. TECHNIQUE: MRI of the right hand is performed without and with contrast. Contrast dose 5.5 mL of Gadavist. FINDINGS: There is a small slightly lobulated otherwise oval-shaped mass in the subcutaneous soft tissues in the thenar region just deep to the palmar aponeurosis and overlying the adductor pollicis muscle. See axial image 18 series 1019 and 1026. The mass measures 8 mm transverse, 4 mm AP, and 9 mm craniocaudal. The mass is dark on T1, predominantly bright on T2 with some heterogeneity with small linear and punctate areas of low signal extending through the mass. There is no definite enhancement. Surrounding soft tissues are normal. The remaining bones, joints and soft tissues are normal. MR/MR hand RT wo/w con IMPRESSION: Small slightly complex and likely cystic mass overlying the thenar soft tissues. Otherwise nonspecific. This does not have the appearance of a lipoma or vascular lesion.
[2023-11-09] MEDS: gadobutroL 7.5 ML VIAL IVPUSH (12:31)
== END 2023-11-09 11:23 | disposition home or self-care (01) ==
LOC: HO.MRI 11:22
PROVIDERS: PCP Nurse Practitioner Family; Visit Provider Physician Assistant
DX: D17.9 Benign lipomatous neoplasm, unspecified (principal); M79.641 Pain in right hand
CPT/HCPCS: 73220; A9585

== ENCOUNTER 2023-12-26 08:39 | Outpatient (AMB) | payer MEDICAID, SELFPAY ==
--- NOTE | 2023-12-26 08:52 | MHC.OFFVIS ---
Vital Signs 12/26/23 09:15 Height 5 ft 5 in Weight 130 lb BMI 21.6 Intake Visit Reasons: OV- Right hand MRI review Intake Note: Ashanti a 23 year old 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 female who presents today to discuss treatment options s/p right hand cyst. Patient had a right hand MRI done on 11/09/23. Oral And Maxillofacial Pathologist Required: Yes Oral And Maxillofacial Pathologist Language: Nutrition Helper Services: Oral And Maxillofacial Pathologist Present Oral And Maxillofacial Pathologist Name: JorgeJAVIERA/ALEC Allergies No Known Allergies [No Known Allergies*] Allergy (Verified 12/26/23 09:15) HPI HPI OV- Right hand MRI review: Details: Ashanti is a 23 year old 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 Korean speaking woman who presents for an MRI review of her right hand palmar mass. She complains of a mass on her right palm for about 2 years. She does not recall any kind of penetration injury, splinter etc.. She says this is bothersome for her, and she reports feeling an occasional burning sensation radiating from her hand up the dorsal aspect of her forearm to her shoulder. I did explain to her that I do not think that the 2 are related.. 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 [facility] Medical History Personal history of asthma COVID-19 History of depression Personal history of anxiety disorder Family history of asthma and other chronic lower respiratory diseases Surgical History Hx of tubal ligation History of retained foreign body fully removed (12/23/21) Family History Maternal Grandmother Hx of breast cancer Diabetes mellitus Maternal Aunt No problems noted. 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, 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 Gender identity: Female Female Reproductive History Menstrual Age of Menarche: 13 Review of Systems Const All systems reviewed & are unremarkable except as noted in HPI and below Physical Exam Vital Signs: BMI result Body Mass Index 21.6 Const General: cooperative, healthy appearing and no acute distress Orientation/consciousness: patient oriented x3 HEENT Head: Yes normocephalic and Yes atraumatic Eyes EOM: EOMs intact bilaterally Resp Effort & Inspection: normal respiratory effort and able to speak in complete sentences Cardio Jugular venous distension: no JVD Skin General skin exam: turgor normal Rashes: no rashes Neuro General: patient oriented x3 Extrem Other: Evaluation of Right Upper Extremity: The patient is alert, oriented, and in no acute distress Neuro: Median, Ulnar, Radial nerves motor and sensory intact and sensation is normal to the tips of all digits Vascular: Cap refill brisk ROM: She can make a fist and extend all her digits No locking or catching Skin: No lacerations or abrasions. General: No Ecchymosis. No Erythema or evidence of infection. There is a palpable mass, measuring ~1.5cm in diameter, in the volar aspect of the 1st webspace, just radial to index finger flexor tendons, proximal to mid-palmar crease. No overlying skin changes. Not particularly tender. Right Hand MRI review: FINDINGS: There is a small slightly lobulated otherwise oval-shaped mass in the subcutaneous soft tissues in the thenar region just deep to the palmar aponeurosis and overlying the adductor pollicis muscle. See axial image 18 series 1019 and 1026. The mass measures 8 mm transverse, 4 mm AP, and 9 mm craniocaudal. The mass is dark on T1, predominantly bright on T2 with some heterogeneity with small linear and punctate areas of low signal extending through the mass. There is no definite enhancement. Surrounding soft tissues are normal. The remaining bones, joints and soft tissues are normal. IMPRESSION: Small slightly complex and likely cystic mass overlying the thenar soft tissues. Otherwise nonspecific. This does not have the appearance of a lipoma or vascular lesion. Jarod Mendoza MD 11/13/23 Psych Appearance: grossly normal Affect: normal affect Attitude: cooperative Assessment & Plan Assessment & Plan (1) Other bursal cyst, right hand: Code(s): M71.341 - Other bursal cyst, right hand Category: Medical (2) Personal history of anxiety disorder: Code(s): Z86.59 - Personal history of other mental and behavioral disorders Category: Medical (3) Asthma: Code(s): J45.909 - Unspecified asthma, uncomplicated Category: Medical Plan Assessment & Plan: 1. Right palmar hand mass Measuring ~1.5cm in diameter, in the volar aspect of the 1st webspace Most likely cystic or fluid filled I educated her about this condition I discussed operative and non-operative treatment options The patient would like to proceed with surgery The risks and benefits of operative treatment were discussed with the patient and the patient wishes to proceed with surgery. These risks include, but are not limited to risk of damage to blood vessels, nerves, tendons, infection, recurrence, incomplete relief of preoperative symptoms, persistent pain, possible need for further surgery and the risks associated with regional blocks and anesthesia. The plan is to take the patient to the operating room sometime in the next few weeks for the following procedures: 1. Right hand palmar mass excision, under general All of the preoperative paperwork including the consent was reviewed today. All the patient's questions were answered. The patient understands that they will be contacted by our surgery attendant soon to schedule this procedure She denies Diabetes, blood thinners, heart, lung, kidney issues She reports having asthma, which is well-controlled Scribed for Viv Puga MD by Adrian Valdovinos, medical biller, on 12/26/23 at 9:50 AM, EST. Coding Level of Care Code Est Pt Level 4 (78193) Diagnoses Other bursal cyst, right hand M71.341 Personal history of anxiety disorder Z86.59 Asthma J45.909
[2023-12-26 09:15] VITALS: BMI 21.6
== END 2023-12-26 10:00 | disposition home or self-care (01) ==
PROVIDERS: PCP Nurse Practitioner Family; Visit Provider Orthopaedic Surgery
DX: M71.341 Other bursal cyst, right hand (principal); Z86.59 Personal history of other mental and behavioral disorders; J45.909 Unspecified asthma, uncomplicated
CPT/HCPCS: 99214

== ENCOUNTER → 2023-12-26 08:39 | Outpatient (BNVA) | payer MEDICAID, SELFPAY | PROVIDERS: PCP Nurse Practitioner Family; Visit Provider Orthopaedic Surgery | DX: M71.341 Other bursal cyst, right hand (principal); Z86.59 Personal history of other mental and behavioral disorders; Z71.2 Person consulting for explanation of examination or test findings | CPT/HCPCS: 99212 ==

== ENCOUNTER 2024-02-21 10:40 | Emergency (ER) | payer MEDICAID, SELFPAY ==
--- NOTE | 2024-02-21 10:45 | ECG_ITS ---
Test Reason : SYNCOPY Blood Pressure : / mmHG Vent. Rate : 071 BPM Atrial Rate : 071 BPM P-R Int : 134 ms QRS Dur : 082 ms QT Int : 398 ms P-R-T Axes : 044 037 033 degrees QTc Int : 432 ms Normal sinus rhythm Normal ECG When compared with ECG of 05-JAN-2020 23:13, No significant change was found Referred By: Generic ED Physician Electronically Signed By:KEN ALVES
[2024-02-21 11:00] VITALS: BP 114/54; BP 114/68; PULSE 79; PULSE 80; RESP 16; TEMP 36.6; O2SAT 100; O2SAT 99; BMI 20.8
[2024-02-21 11:31] LABS: Basophils Absolute Auto 0.1 X10*3/uL (0.0-0.2); Basophils Percent Auto 0.3 % (0-2); Eosinophils Absolute Auto 0.2 X10*3/uL (0.0-0.4); Hematocrit 37.6 % (37.0-47.0); Hemoglobin 13.1 g/dl (12.0-16.0); Imm Gran Abs Auto 0.09 X10*3/uL (0.00-0.03); Imm Gran Pct Auto 0.5 % (0.0-0.4); Lymphocytes Absolute Auto 0.6 X10*3/uL (1.2-4.9); Lymphocytes Percent Auto 3.6 % (20-40); MANUAL DIFF FLAG SCAN; Mean Corpuscular HGB Conc 34.8 g/dl (31.0-35.0); Mean Corpuscular Hemoglobin 29.3 pg (27.0-33.0); Mean Corpuscular Volume 84.1 fL (80.0-98.0); Mean Platelet Volume 10.8 fL (9.4-12.3); Monocytes Absolute Auto 0.6 X10*3/uL (0.1-1.2); Monocytes Percent Auto 3.4 % (2-11); Neutrophils Absolute Auto 15.9 x10*3/uL (2.0-8.3); Neutrophils Percent Auto 91.2 % (45-73); Platelet Count 280 X10*3/uL (160-400); Red Blood Count 4.47 X10*6/uL (4.20-5.50); Red Cell Distribution Width 12.4 % (11.0-16.0); SCAN SMEAR FLAG 1; White Blood Count 17.4 X10*3/uL (4.8-10.8)
[2024-02-21 11:46] LABS: Alanine Aminotransferase 23 U/L (0-31); Albumin Level 4.4 g/dL (3.5-5.0); Alkaline Phosphatase 69 U/L (39-117); Anion Gap 14 (12-20); Aspartate Amino Transferase 20 U/L (5-31); Bilirubin Total 0.4 mg/dL (0.0-1.0); Blood Urea Nitrogen 10 mg/dL (9-16); Calcium 8.9 mg/dL (8.4-10.2); Carbon Dioxide 21 mmol/L (22-29); Chloride 110 mmol/L (96-108); Creatinine Clr Calc Pharmacy 116.1; Estimated Glomerular Filt Rate > 60; Glucose Random 109 mg/dL (60-115); Potassium 3.6 mmol/L (3.3-5.1); Sodium 141 mmol/L (135-145)
[2024-02-21 12:12] LABS: Influenza A PCR NEGATIVE (Negative); Influenza B PCR NEGATIVE (Negative); Resp Syncy Virus RNA Qual PCR NEGATIVE (Negative); SARS COV2 PCR INHOUSE NEGATIVE (Negative)
[2024-02-21 12:13] LABS: SLIDE REVIEW VERIFIED
[2024-02-21 14:41] VITALS: BP 112/57; PULSE 75; RESP 16; TEMP 36.8; O2SAT 99
--- NOTE | 2024-02-21 16:08 | PC.NURSE ---
patient states she has to leave and take care of her children, patient refused IV fluids and medications. IV removed, patient ambulated with steady gait off of unit
[2024-02-21 16:14] LABS: Troponin-I High Sensitivity < 2.7 ng/L (<3.5-17.0)
[2024-02-21 16:59] LABS: HCG Quantitative < 2 mIU/mL
--- NOTE | 2024-02-21 18:08 | ED.GENADULT ---
HPI - General Adult General Chief complaint: Syncope Stated complaint: N/V/D SINCE 5 AM PER EMS Time Seen by Provider: 02/21/24 15:47 Source: patient Mode of arrival: ambulatory Limitations: no limitations History of Present Illness ED Provider: Dr. Inga Calvert HPI narrative: Patient comes to the emergency room complaining of nausea vomiting and diarrhea. Patient states that last night, almost 20 hours ago, patient ate reheated Sinhala food including rise. This morning, patient woke up with nausea vomiting and diarrhea. Patient states that she passed out twice, both times in the bathroom. Patient denies any chest pain or shortness of breath. Patient states that she does not believe she hit her head. Related Data Home Medications ?Medication ?Instructions ?Recorded ?Confirmed albuterol sulfate 90 mcg/actuation 1 inh inhalation Q4-6H PRN 03/24/20 10/25/23 breath activated powder inhaler Previous Rx's ?Medication ?Instructions ?Recorded metronidazole 500 mg tablet 500 mg PO BID 7 days #14 tabs 10/26/23 Allergies Allergy/AdvReac Type Severity Reaction Status Date / Time No Known Allergies Allergy Verified 02/21/24 11:04 [No Known Allergies*] Review of Systems Review of Systems: Constitutional : No Weight loss, No Fever, No Chills, No Night Sweats, No Fatigue, No Malaise ENT/Mouth : No Hearing loss, No Ear Pain, No Nasal Congestion, No Sinus Pain, No Hoarseness, No sore throat, No Rhinorrhea, No Swallowing Difficulty Eyes: No Eye Pain, No Swelling, No Redness, No Foreign Body, No Discharge, No Vision Changes Cardiovascular : No Chest Pain, No SOB, No Dyspnea on Exertion, No Orthopnea, No Edema, No Palpitations Respiratory : No Cough, No Sputum, No Wheezing, No Smoke Exposure, No Dyspnea Gastrointestinal : Complaining of nausea vomiting and diarrhea. No Constipation, No abdominal Pain, No Hematochezia, No Melena Genitourinary : no irregular bleeding, No Dysuria, No Urinary Frequency, No Hematuria, No Urinary Incontinence, No Urgency, No Flank Pain, No Urinary Flow Changes, No Hesitancy Musculoskeletal : No joint pain, No Myalgias, No Joint Swelling Skin : No Skin Lesions, No rash Neuro : No Weakness, No Numbness, No Paresthesias, complaining of a syncopal episode, no dizziness or headache Psych : No Anxiety/Panic, No Depression, No SI/HI/AH/VH, No Social Issues, Heme/Lymph: No Bruising, No Bleeding,No Lymphadenopathy Endocrine : No Polyuria, No Polydipsia, No Temperature Intolerance [facility] Past Medical History Medical History Personal history of asthma COVID-19 History of depression Personal history of anxiety disorder Family history of asthma and other chronic lower respiratory diseases Surgical History Hx of tubal ligation History of retained foreign body fully removed (12/23/21) Family History Family History Maternal Grandmother Hx of breast cancer Diabetes mellitus Maternal Aunt No problems noted. 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 Oriented X3. No acute distress. Well-appearing Eyes: Pupils equal, round and reactive to light. ENT: Pharynx normal. Neck: Normal inspection. Neck supple. No lymph nodes noted. No crepitus CVS: Normal heart rate and rhythm. Pulses normal. Normal S1 and S2 Respiratory: No respiratory distress. Breath sounds normal. No Wheezing. No rales Abdomen: Soft and nontender. No rigidity. No distention. Skin: Skin warm and dry. Normal skin color. Normal skin turgor. Extremities: No lower extremity edema. No Lacerations. No Rash Neuro: Oriented X 3. No motor deficit. No sensory deficit. Moving all extremities. No slurred speech. CN 2 through 12 grossly intact Psych: calm, cooperative, normal affect Medications Administered Discontinued Medications Generic Name Dose Route Start Last Admin Trade Name Bailey PRN Reason Stop Dose Admin Lactated Ringer's 1,000 mls @ 999 mls/hr 02/21/24 16:00 02/21/24 16:08 Lr IV 02/21/24 17:00 Not Given .Q1H1M JUVENTINO Loperamide HCl 4 mg 02/21/24 15:54 02/21/24 16:08 Loperamide Hcl 2 Mg Capsule PO 02/21/24 15:55 Not Given ONCE ONE Ondansetron HCl 4 mg 02/21/24 15:54 02/21/24 16:08 Ondansetron Hcl 4 Mg/2 Ml Vial IVPUSH 02/21/24 15:55 Not Given ONCE ONE Medical Decision Making Medical Decision Making [facility] Narrative: My interpretation of labs: Patient's white blood cell count 17.4, chemistry shows a slightly decreased bicarb, negative troponin, negative hCG -patient was giving IV fluids,, Imodium, Zofran -I discussed with the patient that D-dimer was pending, concerning that patient passed out, needed to rule out pulmonary embolism, on telemetry in the ED to detect arrhythmias -I was informed by the patient's nurse that the patient walked out of her room, stated that she needed to go, did not complete treatment, Differential Diagnosis Differential Diagnoses: The differential diagnosis associated with the presentation includes (Dehydration, gastritis, gastroenteritis, pulmonary embolism, cardiac arrhythmias) Admission/Observation Consideration of admission/observation: Escalation of care including admission/observation considered (Patient had several syncopal episodes today, admission considered) Lab Data [facility] Lab Attestation statement: I reviewed the patient's lab results. 02/21/24 11:24 02/21/24 11:24 Labs: Lab Results 02/21/24 Range/Units 11: WBC 17.4 H (4.8-10.8) X10*3/uL RBC 4.47 (4.20-5.50) X10*6/uL Hgb 13.1 (12.0-16.0) g/dl Hct 37.6 (37.0-47.0) % MCV 84.1 (80.0-98.0) fL MCH 29.3 (27.0-33.0) pg MCHC 34.8 (31.0-35.0) g/dl RDW 12.4 (11.0-16.0) % Plt Count 280 (160-400) X10*3/uL MPV 10.8 (9.4-12.3) fL Immature Gran % (Auto) 0.5 H (0.0-0.4) % Neut % (Auto) 91.2 H (45-73) % Lymph % (Auto) 3.6 L (20-40) % [place] % (Auto) 3.4 (2-11) % Eos % (Auto) 1.0 (0-4) % Baso % (Auto) 0.3 (0-2) % Lymph # (Auto) 0.6 L (1.2-4.9) X10*3/uL [place] # (Auto) 0.6 (0.1-1.2) X10*3/uL Eos # (Auto) 0.2 (0.0-0.4) X10*3/uL Baso # (Auto) 0.1 (0.0-0.2) X10*3/uL Abs Immat Gran (auto) 0.09 H (0.00-0.03) X10*3/uL Absolute Neuts (auto) 15.9 H (2.0-8.3) x10*3/uL Absolute Nucleated RBC 0.000 (0.0-0.012) X10*3/uL Nucleated RBC % (auto) 0.0 (0.0-0.2) /100WBC Smear Tech's Comments VERIFIED Sodium 141 (135-145) mmol/L Potassium 3.6 (3.3-5.1) mmol/L Chloride 110 H (96-108) mmol/L Carbon Dioxide 21 L (22-29) mmol/L Anion Gap 14 (12-20) BUN 10 (9-16) mg/dL Creatinine 0.68 (0.5-1.4) mg/dL Estim Creat Clear Calc 116.1 Estimated GFR > 60 Random Glucose 109 (60-115) mg/dL Calcium 8.9 D (8.4-10.2) mg/dL Total Bilirubin 0.4 (0.0-1.0) mg/dL AST 20 (5-31) U/L ALT 23 (0-31) U/L Alkaline Phosphatase 69 (39-117) U/L Troponin I High Sens < 2.7 (<3.5-17.0) ng/L Total Protein 7.0 (6.5-8.0) g/dL Albumin 4.4 (3.5-5.0) g/dL Beta HCG, Quant < 2 mIU/mL Influenza Type A (PCR) NEGATIVE (Negative) Influenza Type B (PCR) NEGATIVE (Negative) RSV RNA Qual (PCR) NEGATIVE (Negative) SARS-CoV-2 RNA (RT-PCR) NEGATIVE (Negative) Discharge Plan Discharge Clinical Impression: Gastroenteritis, Syncopal episodes Patient Disposition: Left W/O Completing Treatment Prescriptions: No Action metronidazole 500 mg tablet 500 mg PO BID 7 Days Qty: 14 0RF Rx Instructions: Take with food, Avoid alcohol and vinegar products albuterol sulfate 90 mcg/actuation aerosol powdr breath activated 1 inh inhalation Q4-6H PRN Discharge Date/Time: 02/21/24 16:09
== END 2024-02-21 16:09 | disposition left against medical advice (07) ==
PROVIDERS: Emergency Provider Emergency Medicine
DX: K52.9 Noninfective gastroenteritis and colitis, unspecified (principal); R55 Syncope and collapse; R11.2 Nausea with vomiting, unspecified; Z03.818 Encounter for observation for suspected exposure to other biological agents ruled out; J45.909 Unspecified asthma, uncomplicated; Z79.899 Other long term (current) drug therapy
CPT/HCPCS: 0241U; 36415; 80053; 84484; 84702; 85025; 93005; 99283

== ENCOUNTER → 2024-02-21 10:45 | Outpatient (BNV) | payer MEDICAID, SELFPAY | PROVIDERS: Emergency Provider Emergency Medicine; Visit Provider Internal Medicine | DX: R55 Syncope and collapse (principal) | CPT/HCPCS: 93010 ==

== ENCOUNTER 2024-03-01 12:34 | Outpatient (REF) | payer MEDICAID, SELFPAY ==
[2024-03-02 13:40] LABS: CT PCR NOT DETECTED (Not Detect.); NG PCR NOT DETECTED (Not Detect.)
[2024-03-04 08:04] LABS: HBsAGNum1 0.86 S/CO (0.00-0.99); HIV AB/AG Nonreactive (Nonreactive); HIV Num 1 0.06 S/CO (0.00-0.99); Hepatitis B Surface Antigen Negative (Negative); ~Hepatitis C Antibody Nonreactive (Nonreactive)
[2024-03-04 08:43] LABS: Syphilis Screen Nonreactive (Nonreactive)
== END 2024-03-01 12:35 | disposition home or self-care (01) ==
LOC: HO.LAB 12:34
PROVIDERS: Visit Provider Advanced Practice Midwife
DX: N89.8 Other specified noninflammatory disorders of vagina (principal); Z20.2 Contact with and (suspected) exposure to infections with a predominantly sexual mode of transmission
CPT/HCPCS: 86780; 86803; 87340; 87389; 87491; 87591; 99212

== ENCOUNTER 2024-03-01 12:34 | Outpatient (AMB) | payer MEDICAID, SELFPAY ==
[2024-03-01 12:58] VITALS: BP 100/60; BMI 20.8
--- NOTE | 2024-03-01 12:58 | MHC.OFFVIS ---
Vital Signs 03/01/24 12:58 Height 5 ft 5 in Weight 125 lb BMI 20.8 BP 100/60 Intake Visit Reasons: Vaginal Discharge Senior Hadoop Developer Services: Senior Hadoop Developer Present Information Interpreted: clinical only Account Manager: Account Manager Present Allergies No Known Allergies [No Known Allergies*] Allergy (Verified 03/01/24 13:02) Medication List - Last Reconciled 03/01/24 by Judith Bullock CNM albuterol sulfate 90 mcg/actuation 1 inh inhalation Q4-6H PRN Is last menstrual period known: Yes Last menstrual period: 02/10/24 HPI HPI Vaginal Discharge: Details: Check vaginal discharge and get as to testing. She is not worry for herself and she has a boyfriend and he tells her that evidence fine but she just wants to double check be sure there was a odor to the discharge for her and slight brown color to and then it was white. 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 She is not having any other problems her periods are coming monthly her last period was the 16th in her previous 1 was the 12th of the last month. [facility] Medical History Personal history of asthma COVID-19 History of depression Personal history of anxiety disorder Family history of asthma and other chronic lower respiratory diseases Surgical History Hx of tubal ligation History of retained foreign body fully removed (12/23/21) Family History Maternal Grandmother Hx of breast cancer Diabetes mellitus Maternal Aunt No problems noted. 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 External Female Exam: normal external appearance and normal appearance of the urethra Speculum Exam - Vagina: normal appearance of the vagina and normal vaginal discharge Speculum Exam - Cervix: normal appearance of the cervix and Cervical os closed Results Reviewed Results Reviewed: Name: Dick BellamyAshanti Age/Sex: 22/F Attending: Judith Bullock CNM : 2000 Submitted by: Judith Bullock CNM Copies to: Susie Nascimento MR #: [id number] Status: DEP REF Collected: 07/21/23 Location: [facility] Received: 07/25/23 Interpretation Satisfactory for evaluation. Negative for intraepithelial lesion or malignancy. Clinical Information LMP: 06/30/23 Previous PAP test: No pap hx Material Received ThinPrep-Cervical Copies To Judith Bullock [address] [place] [address] [facility] [address] [place] [address] Electronically Signed By: Priti Wheeler 08/12/23 [id number] The Pap Test is a screening procedure with the inherent possibility of both false negative and false positive results. Results should be interpreted in the context of historic and current clinical findings. Reliability of the Pap Test is enhanced by performing the test on a regular repetitive basis. Patient: Ashanti Ontiveros Age/Sex: 22/F MR#: [id number] Page 1 of 1 Assessment & Plan Assessment & Plan (1) Potential exposure to STD: Code(s): Z20.2 - Contact with and (suspected) exposure to infections with a predominantly sexual mode of transmission Category: Medical (2) Problematic vaginal discharge: Comment: Appears within normal limits today we will await results of testing. Code(s): N89.8 - Other specified noninflammatory disorders of vagina Category: Medical Plan Reviewed that is good to check whenever she is concerned reviewed the condoms are girls best friend if she is concerned about any exposure. Also review that I had ordered for her testing for HIV hep B hep C and syphilis last September but it did not appear that she got them done but she thought she had. Results are not in the system. She has the [facility] portal in her phone but not the [facility] portal. Regardless she will go downstairs and try to get the lab work that was ordered in September done today review that you would only call for positive finding but that otherwise results go in the portal. Also showed her cervix and vaginal discharge which today appears within miss and reviewed that yeast and bacterial vaginosis are not of major concern unless there posing problems for her. Orders: Orders CT NG by PCR Today N89.8 - Other specified noninflammatory disorders of vagina Bacterial Vaginosis Panel Today N89.8 - Other specified noninflammatory disorders of vagina Coding Level of Care Code Est Pt Level 3 (09596) Diagnoses Potential exposure to STD Z20.2 Problematic vaginal discharge N89.8
== END 2024-03-01 13:39 | disposition home or self-care (01) ==
LOC: HO.HWSM 12:34
PROVIDERS: Visit Provider Advanced Practice Midwife
DX: Z20.2 Contact with and (suspected) exposure to infections with a predominantly sexual mode of transmission (principal); N89.8 Other specified noninflammatory disorders of vagina
CPT/HCPCS: 99213

== ENCOUNTER 2024-03-01 13:33 | Outpatient (REF) | payer MEDICAID, SELFPAY ==
[2024-03-02 13:05] LABS: Bacterial Vaginosis PCR POSITIVE (Negative); Candida Group PCR NOT DETECTED (Not Detect); Candida glab krusei PCR NOT DETECTED (Not Detect); Trichomonas vaginalis PCR NOT DETECTED (Not Detect)
== END 2024-03-01 13:34 | disposition home or self-care (01) ==
LOC: HO.HHCL 13:33
PROVIDERS: Visit Provider Advanced Practice Midwife
DX: N89.8 Other specified noninflammatory disorders of vagina (principal)
CPT/HCPCS: 0352U

== ENCOUNTER 2024-04-03 11:30 | Outpatient (AMB) | payer MEDICAID, SELFPAY ==
--- NOTE | 2024-04-03 11:31 | A.OFFVIS_ITS ---
Vital Signs 04/03/24 11:34 Height 5 ft 5 in Weight 125 lb BMI 20.8 BP 110/62 Intake Visit Reasons: vaginal itch Bi Specialist Required: No Bi Specialist Services: Bi Specialist Present Information Interpreted: clinical only Senior Financial Accountant: Senior Financial Accountant Present Allergies No Known Allergies [No Known Allergies*] Allergy (Verified 04/03/24 11:34) Medication List - Last Reconciled 04/03/24 by Judith Bullock CNM albuterol sulfate 90 mcg/actuation 1 inh inhalation Q4-6H PRN metronidazole 0.75%(37.5mg/5gram) 1 appful vaginal BEDTIME 5 days Is last menstrual period known: Yes Last menstrual period: 03/17/24 HPI HPI vaginal itch: Details: Patient is here because she has vaginal itch and an uncomfortable sensation the urine comes out. It started a ago she midcycle her last menstrual periods started March 17 she thinks she is ovulating she uses pads mostly for. She has a tubes tied so she does not need a method control. She used to use panty liners but recommended to not I am regularly by me and so has stopped she did notice improvement she does check herself whenever she is concerned she was here in February and got checked for discharge and that showed up was bacterial vaginosis. She used the gel and thought things were better now she has the symptoms. [facility] Medical History Personal history of asthma COVID-19 History of depression Personal history of anxiety disorder Family history of asthma and other chronic lower respiratory diseases Surgical History Hx of tubal ligation History of retained foreign body fully removed (12/23/21) Family History Maternal Grandmother Hx of breast cancer Diabetes mellitus Maternal Aunt No problems noted. 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, 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 Gender identity: Female Female Reproductive History Menstrual Age of Menarche: 13 Duration of menses: 3-5 days Date of last menstrual period: 03/17/24 control method: permanent sterilization Total pregnancies: 3 Full term: 3 Date of last pap smear: 07/25/23 (negative) History of abnormal pap smear: No Physical Exam Vital Signs: Last Vital Signs BP 110/62 04/03/24 11:34 BMI result Body Mass Index 20.8 Other: External vulva labia inflamed with a white discharge vaginal sidewalls current consistent with yeast and mucosa is slightly her cervix is multiparous smooth showing obvious signs of ovulation with clear midcycle flowing out. Assessment & Plan Assessment & Plan (1) Potential exposure to STD: Code(s): Z20.2 - Contact with and (suspected) exposure to infections with a predominantly sexual mode of transmission Category: Medical (2) Yeast infection of the vagina: Code(s): B37.31 - Acute candidiasis of vulva and vagina Category: Medical (3) Family history of diabetes mellitus (DM): Code(s): Z83.3 - Family history of diabetes mellitus Category: Medical (4) Hx of tubal ligation: Code(s): Z98.51 - Tubal ligation status Category: Surgical Plan Reviewed factors that can contribute to development of a yeast infection but then it is extremely coming reviewed the if she were diabetic or if she does not get better cream I am going to give her and still has vaginal itching and burning by Monday then I would prescribe the fluconazole pill. 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 She has an appointment in April to get checked with her doctor because she is feeling herself kind of weak and jittery at home and her grandmother told her she looked shaky like she might have diabetes because when she had piece of candy it made her feel better but she does not want to keep doing that all the time so she is going to be checked herself to see if she is diabetic as it does run in the family. Also educated about the physical symptoms of ovulation which she has right now she has her tubes tied so is not a concern but it is useful to a lined symptoms with her cycle. Orders: Orders CT NG by PCR Today N89.8 - Other specified noninflammatory disorders of vagina Bacterial Vaginosis Panel Today N89.8 - Other specified noninflammatory disorders of vagina Medications: New miconazole nitrate 2% (Miconazole-7) Use now for vaginal yeast infection and in future for recurrence of symptoms... 1 appful vaginal BEDTIME 7 days 45 grams 2RF Coding Level of Care Code Est Pt Level 3 (38916) Diagnoses Potential exposure to STD Z20.2 Yeast infection of the vagina B37.31 Family history of diabetes mellitus (DM) Z83.3 Hx of tubal ligation Z98.51
[2024-04-03 11:34] VITALS: BP 110/62; BMI 20.8
== END 2024-04-03 12:12 | disposition home or self-care (01) ==
PROVIDERS: Visit Provider Advanced Practice Midwife
DX: Z20.2 Contact with and (suspected) exposure to infections with a predominantly sexual mode of transmission (principal); B37.31 Acute candidiasis of vulva and vagina; Z83.3 Family history of diabetes mellitus; Z98.51 Tubal ligation status
CPT/HCPCS: 99213

== ENCOUNTER 2024-04-03 11:30 | Outpatient (REF) | payer MEDICAID, SELFPAY ==
[2024-04-04 03:11] LABS: CT PCR NOT DETECTED (Not Detect.); NG PCR NOT DETECTED (Not Detect.)
[2024-04-04 11:51] LABS: Bacterial Vaginosis PCR POSITIVE (Negative); Candida Group PCR DETECTED (Not Detect); Candida glab krusei PCR DETECTED (Not Detect); Trichomonas vaginalis PCR NOT DETECTED (Not Detect)
== END 2024-04-03 11:31 | disposition home or self-care (01) ==
LOC: HO.LAB 11:30
PROVIDERS: Visit Provider Advanced Practice Midwife
DX: N89.8 Other specified noninflammatory disorders of vagina (principal); Z20.2 Contact with and (suspected) exposure to infections with a predominantly sexual mode of transmission; Z98.51 Tubal ligation status
CPT/HCPCS: 81515; 87491; 87591; 99212

== ENCOUNTER 2024-05-03 15:59 | Outpatient (REF) | payer MEDICAID, SELFPAY ==
--- OUTSIDE RECORDS SUMMARY | 2024-05-03 16:01 | XMS_ITS | Encounter Summary ---
Author Organization [employer] Address [address] [place] [address] Care Team Providers Care Rolling Attendant Name Role Phone Carol Almaraz KULDIP Primary Care Provider [phone] Encounter Details Date Type Department Care Team (Late st Contact Info) Description 04/03/2024 Orders Only GENERIC EXTERNAL DATA DEPARTMENT Provider, Generic External Data Social History Tobacco Use Types Packs/Day Years Used Date Smoking Tobacco: Never Smokeless Tobacco: Never Depression Answer Date Recorded Patient Health Questionnaire-9 Score 1 08/04/2023 Patient Health Questionnaire-9 Score 1 08/04/2023 Last PHQ-9: Questionnaire Data Not on file 0 08/04/2023 Housing Stability Answer Date Recorded What is your housing situation today? I have rose barillas 01/12/[address] you li ve. Do you have problems with any of the following? None of the above 01/12/2023 Food Insecurity Answer Date Recorded Within the past 12 months, y ou worried that your food would run out before you got money to buy more: Never True 01/12/2023 Within the past 12 months,th e food you bought just didn't last and you didn't have enough money to get more: Never True Transportation Answer Date Recorded In the past 12 months, has l ack of transportation kept you from medical appts, meetings, work or from getting things needed for daily living? No 01/12/2023 Utilities Answer Date Recorded In the past 12 months, has t he electric, gas, oil or water company threatened to shut off services in your home? I am not sure 08/04/2023 Depression Answer Date Recorded Patient Health Questionnaire-2 Score 0 08/04/2023 Comments Unknown Sex and Gender Information Value Date Recorded Sex Assigned at Female 01/24/2022 10:31 AM EDT Legal Sex Female 10:31 AM EDT Gender Identity Female 01/24/2022 10:31 AM EDT Sexual Orientation Straight 01/24/2022 10 :31 AM EDT documented as of this encounter Plan of Treatment Upcoming Encounters Date Type Department Care Team (Late st Contact Info) Description 06/14/2024 4:00 PM EDT Office Visit [facility] [address], [place] [id number] Carol Almaraz NP [address] [place] [address] documented as of this encounter Procedures Procedure Name Priority Date/Time Associated Diagnosis Comments BACTERIAL VAGINOSIS PANEL Routine 04/03/2024 12:00 AM EST CHLAMYDIA/N. GONORRHOEAE RNA, TMA, UROGENITAL Routine 04/03/2024 12:00 AM EST documented in this encounter Results * (ABNORMAL) Bacterial Vaginosis (04/03/2024 12:00 AM EST) TRICHOMONAS VAGINALIS DETECTION BY PCR NOT DETECTED Not Detect [facility] BACTERIAL VAGINOSIS DETECTION BY PCR POSITIVE(A) Negative [facility] Comment:The BV organism targ ets of the Xpert Xpress MVP test can becommensal in women; Xpert Xpress MVP positive results forbacterial vaginosis should be considered in conjunction withother clinical and patient information to determine thedisease status. Organisms that are not detected by the XpertXpress MVP test have also been reported to be associatedwith BV and aerobic vaginitis.The Xpert Xpress MVP test performance has not been evaluatedin patients under the age of 14. [facility] DETECTION BY PCR DETECTED(A) Not Detect [facility] Madison glab krusei PCR DETECTED(A) Not Detect [facility] 04/03/2024 04/03/2024 us Generic External Data Provider LAB MICROBIOLOGY - GENERAL ORDERABLES Final Result [facility] [address] [place] [phone] [phone] * Chlamydia/N. Gonorrhoeae RNA, TMA, Urogenitial (04/03/2024 12:00 AM EST) CT PCR NOT DETECTED Not Detect. [facility] Comment:A not detected test result does not exclude the possibilityof infection because test results can be affected byimproper specimen collection, concurrent antibiotic therapy,or the number of organisms in the specimen which may bebelow the sensitivity of the test. As with many diagnostictests, results from the Xpert CT/NG assay should beinterpreted in conjunction with other laboratory andclinical data available to the clinician.Xpert CT/NG performance has not been evaluated in patientsless than 14 years of age. The assay should not be used forthe evaluationof suspected sexual abuse or for other medico-legalindications. Additional testing is recommended in anycircumstance when false positive or false negative resultscould lead to adverse medical, social or psychologicalconsequences. NG PCR NOT DETECTED Not Detect. [facility] Comment:A not detected test result does not exclude the possibilityof infection because test results can be affected byimproper specimen collection, concurrent antibiotic therapy,or the number of organisms in the specimen which may bebelow the sensitivity of the test. As with many diagnostictests, results from the Xpert CT/NG assay should beinterpreted in conjunction with other laboratory andclinical data available to the clinician.Xpert CT/NG performance has not been evaluated in patientsless than 14 years of age. The assay should not be used forthe evaluationof suspected sexual abuse or for other medico-legalindications. Additional testing is recommended in anycircumstance when false positive or false negative resultscould lead to adverse medical, social or psychologicalconsequences. 04/03/2024 04/03/2024 Narrative [facility] - 04/04/2024 3:11 AM EST Vaginal us Generic External Data Provider LAB MICROBIOLOGY - GENERAL ORDERABLES Final Result [facility] [address] [place] [phone] [phone] documented in this encounter Visit Diagnoses Not on filedocumented in this encounter Additional Health Concerns Assessment Noted Time PHQ-9 Depression Total Score: 1 08/04/19 24 11:39 AM EDT documented as of this encounter Care Teams Rolling Attendant Relationship Specialty Start Date End Date Carol Almaraz NP [address] [place] [address] PCP - General Family Medicine 08/04/23 documented as of this encounter
--- OUTSIDE RECORDS SUMMARY | 2024-05-03 16:01 | XMS_ITS | Encounter Summary ---
Author Organization [employer] Address [address] [facility] [facility] [address] [place] [address] Care Team Providers Care Installer Inspector Final Name Role Phone Carol Almaraz TRANSMISSION TECHNICIAN Primary Care Provider [phone] Reason for Visit * Reason Comments Follow-up Encounter Details Date Type Department Care Team ([facility] st Contact Info) Description 05/03/2024 3:15 PM EST Office Visit [facility] [address] [place] [address] Carol Almaraz NP [address] [place] [address] Anemia, unspecified type (Primary Dx) Social History Tobacco Use Types Packs/Day Years Used Date Smoking Tobacco: Never Smokeless Tobacco: Never Alcohol Use Standard Drinks/Week Comments Not Currently 0 (1 standard drink = 0.6 oz pur e alcohol) Depression Answer Date Recorded Patient Health Questionnaire-9 [...] Patient Health Questionnaire-2 Score 0 08/04/2023 Comments No Sex and Gender Information Value Date Recorded Sex Assigned at Female 01/24/2022 10:31 AM EDT Legal Sex Female 10:31 AM EDT Gender Identity Female 01/24/2022 10:31 AM EDT Sexual Orientation Straight 01/24/2022 10 :31 AM EDT documented as of this encounter Last Filed Vital Signs Vital Sign Reading Time Taken Comments Blood Pressure 109/64 05/03/2024 3:18 PM EST Pulse 85 05/03/2024 3:18 PM EST Temperature 36.7 ??C (98 ??F) 05/03/2024 3:18 PM EST Respiratory Rate 16 05/03/2024 3:18 PM EST Oxygen Saturation 98% 05/03/2024 3:18 PM EST Inhaled Oxygen Concentration - - Weight 56.4 kg (124 lb 6.4 oz) 05/03/2024 3:18 P M EST Height 165.1 cm (5' 5 ) 05/03/2024 3:18 PM EST Body Mass Index 20.7 05/03/2024 3:18 PM EST documented in this encounter Plan of Treatment Upcoming Encounters Date Type Department Care Team (Late st Contact Info) Description 06/14/2024 4:00 PM EDT Office Visit [facility] [address] [place] [address] Carol Almaraz NP [address] [place] [address] Scheduled Orders Name Type Priority Associated Diagnoses Orde r Schedule CBC auto differential Lab Routine Anemia, unspecified type Expected: 05/03/2024 (Approximate), Expires: 05/03/2025 Iron And Total Iron Binding Capacity Lab Routine Anemia, unspecified type Expected: 05/03/2024, Expires: 05/03/2025 Hemoglobin A1c Lab Routine Anemia, unspecified type Expected: 05/03/2024 (Approximate), Expires: 05/03/2025 Comprehensive Metabolic Panel Lab Routine Anemia, unspecified type Expected: 05/03/2024 (Approximate), Expires: 05/03/2025 TSH W/Reflex to FT4 Lab Routine Anemia, unspecified type Expected: 05/03/2024 (Approximate), Expires: 05/03/2025 documented as of this encounter Visit Diagnoses Diagnosis Anemia, unspecified type- Primary documented in this encounter Additional Health Concerns Assessment Noted Time PHQ-9 Depression Total Score: 1 08/04/19 11:39 AM EDT documented as of this encounter Care Teams Installer Inspector Final Relationship Specialty Start Date End Date Carol Almaraz NP [address] [place] [id number] PCP - General Family Medicine 08/04/23 documented as of this encounter
--- OUTSIDE RECORDS SUMMARY | 2024-05-03 16:01 | XMS_ITS | Clinical Summary ---
Author Organization [facility] [employer] Address [address] [place] [address] Care Team Providers Care It Architect Name Role Phone Carol Almaraz KULDIP Primary Care Provider Allergies No known active allergies Medications albuterol 108 (90 Base) MCG/ACT inhalerIndicat ions:Influenza A Inhale 2 puffs every 4 (four) hours if needed for wheezing or shortness of breath. 18 g 1 3 Active Spacer/Aero-Ho lding Chambers (OptiChamber Tayler) miscIndication s:Influenza A 1 each every 4 (four) hours if needed (asthma). 1 each 3 Active Additional Information Patient not taking.Reported on 08/04/2023 Miconazole 7 2 % vaginal cream INSERT 1 APPLICATORFUL VAGINALLY EVERY DAY AT BEDTIME FOR 7 DAYS 4 Active fluticasone (Flonase) 50 MCG/ACT nasal sprayIndicatio ns:Seasonal allergic rhinitis due to pollen Administer 1-2 sprays into each nostril Once per day. Shake gently. Before first use, prime pump. After use, clean tip and replace cap. 16 g 2 4 08/04/19 25 Active Active Problems Problem Noted Date Diagnosed Date Anemia 05/03/2024 Anxiety and depression 09/06/2023 Seasonal allergic rhinitis due to pollen 024 Assessment & Plan (08/07/2023 7:21 PM EDT): Pt with significant impact on qol, will refer to allergy. Initiate flonase Medication Indications, side effects and duration of therapy reviewed, pt aware to call clinic for worsening symptoms or failure to resolve Ganglion cyst 08/04/2023 Assessment & Plan (08/07/2023 7:20 PM EDT): Reviewed option of watchful waiting vs potential injection, vs surgical removal Due to severity of symptoms, pt opts for ortho referral Inattention 08/04/2023 Assessment & Plan (08/07/2023 7:19 PM EDT): From history strongly suspect adhd, however, records not available, pt plans to rtc and will complete [facility] Dry eyes 02/27/2023 Asthma 02/02/2023 02/02/2023 Seizure 11/17/2016 02/02/2023 Depressive disorder 10/28/2016 Posttraumatic stress disorder 10/28/2016 Oppositional defiant disorder 10/28/2016 Encounters Date Type Department Care Team Description 05/03/2024 3:15 PM EST Office Visit [facility] [address] [place] [phone] Carol Almaraz NP Anemia, unspecified type (Primary Dx) 04/03/2024 Orders Only GENERIC EXTERNAL DATA DEPARTMENT Provider, Generic External Data 03/28/2024 Telephone [facility] [address] [place] [address] Teresita Kang MA Chart Prep 03/01/2024 Orders Only GENERIC EXTERNAL DATA DEPARTMENT Provider, Generic External Data 02/21/2024 Orders Only GENERIC EXTERNAL DATA DEPARTMENT Provider, Generic External Data from Last 3 Months Immunizations Name Administration Dates Next Due DTaP 10/22/2005, 3,03/06/2002,01/02,2001 HPV 9-Valent 06/01/2018,01/19/2017,11/17/2016 HPV, Quadrivalent 06/01/2018,01/19/2017,11/18/19 17 Hep A, ped/adol, 2 dose 04/22/2011,10/20/2010 Hep A, ped/adol, 3 dose 04/22/2011,10/20/2010 Hep B, Adolescent or Pediatric 09/18/2002,2001,2001 HiB, unspecified 12/18/2002 Hib (PRP-T) 01/02/2002,2001 IPV 10/22/2005, 2,01/02/2002,10/31 Influenza injectable quadriv alent preservative free 03/06/2020,06/07/2019,04/03/2012 Influenza, IIV3, injectable 03/06/2020, 0,04/03/2012 MMR 10/22/2005,09/18/2002 Meningococcal ACWY, unspecified 06/01/2018,09/06 Meningococcal MCV4P ACYW-135 06/01/2018,09/07/19 13 Pneumococcal Conjugate PCV 13 09/18/2002, 003,03/06/2002 TD (adult), 2 Lf tetanus tox oid, preservative free, adsorbed 09/24/2012 Td (adult), unspecified 09/24/2012 Tdap 09/24/2012 Varicella 10/20/2010,07/09/2003 Family History Medical History Relation Name Comments Depression Brother Breast cancer Maternal Grandmother Depression Maternal Grandmother Hypertension Maternal Grandmother Relation Name Status Comments Brother Maternal Grandmother Social History Tobacco Use Types Packs/Day Years Used Date Smoking Tobacco: Never Smokeless Tobacco: Never Tobacco Cessation:Counseling Given: Not Answered Alcohol Use Standard Drinks/Week Comments Not Currently [...] Orientation Straight 01/24/2022 10 :31 AM EDT Last Filed Vital Signs Vital Sign Reading [...] Mass Index 20.7 05/03/2024 3:18 PM EST Plan of Treatment Upcoming Encounters Date Type Department Care Team (Late st Contact Info) Description 06/14/2024 4:00 PM EDT Office Visit [facility] [address] [place] [address] Carol Almaraz NP [address] [place] [address] Health Maintenance Due Date Last Done Comments Pneumococcal Vaccine: Pediatrics (0 to 5 Years) and At-Risk Patients (6 to 49) Years) (1 of 1 - PPSV23) 08/30/2007 09/18/2002, 05/22/2002, 03/06/2002 Alcohol/Substance Use Screening 2013 Family Planning (PISQ) 2016 Dental Oral Exam 11/17/2021 05/19/2021, , 05/29/2019, Additional history exists Dental Prophylaxis 12/05/2021 06/03/2021, 0 06/11/2020, 05/29/2019, Additional history exists Dental X-Ray: Bitewings 05/20/2022 05/19/19 22, 10/09/2020, 05/29/2019, Additional history exists DTaP/Tdap/Td Vaccines (8 - Td or Tdap) 09/24/2022 09/24/2012, 09/24/2012, 09/24/2012, Additional history exists COVID-19 Vaccine ( season) 2023 05/28/2021, 05/07/2021 Influenza Vaccine (#1) 2023 , 03/06/2020, 06/07/2019, Additional history exists Dental X-Ray: Full Mouth 05/20/2024 05/19/2021, 05/26 Depression Screening 08/03/2024 08/04/2023, 08/04/19 24 SDOH Screening 08/03/2024 08/04/2023 Tobacco Screening 08/03/2024 08/04/2023 Chlamydia and Gonorrhea Screening 04/03/2025 04/03/2024, 03/01/2024, 10/25/2023, Additional history exists Pap Smear 07/20/2026 07/21/2023 Zoster Vaccines (1 of 2) 08/30/2051 RSV Patients and Patients Aged 60 years or older (1 - 1-dose 75+ series) 2076 Hepatitis B Vaccines Completed 09/18/2002, 01/02/2002, 2001 HIB Vaccines Completed 12/18/2002, 11/2001, 2001 IPV Vaccines Completed 10/22/2005, 02/24, 01/02/2002, Additional history exists Hepatitis A Vaccines Completed 04/22/2011, 10/21/19 11 HPV Vaccines Completed 06/01/2018, 10/2018, 01/19/2017, Additional history exists Meningococcal Vaccine Completed 06/01/2018 , 06/01/2018, 09/06/2012, Additional history exists HIV Screening Completed 03/01/2024, 09/25, 06/08/2021, Additional history exists Hepatitis C Screening Completed 03/01/2024 , 10/19/2021, 03/06/2020 RSV under 20 months Aged Out No longe r eligible based on patient's age to complete this topic Rotavirus Vaccines Aged Out No longer eligible based on patient's age to complete this topic Procedures Procedure Name Priority Date/Time Associated Diagnosis Comments BACTERIAL VAGINOSIS PANEL Routine 04/03/2024 12:00 AM EST CHLAMYDIA/N. GONORRHOEAE RNA, TMA, UROGENITAL Routine 04/03/2024 12:00 AM EST SYPHILIS SCREEN Routine 03/01/2024 1:40 PM EST HEPATITIS B SURFACE ANTIGEN, EIA Routine 03/01/2024 1:40 PM EST HIV 1/2 ANTIGEN/ANTIBODY, FOURTH GENERATION W/RFL Routine 03/01/2024 1:40 PM EST HEPATITIS C ANTIBODY Routine 03/01/2024 1:40 PM EST CHLAMYDIA/N. GONORRHOEAE RNA, TMA, UROGENITAL Routine 03/01/2024 1:40 PM EST BACTERIAL VAGINOSIS PANEL Routine 03/01/2024 12:00 AM EST HCG, TOTAL, QN Routine 02/21/2024 11:24 AM EST HIGH SENSITIVITY TROPONIN I Routine 02/21/2024 11:24 AM EST SLIDE REVIEW Routine 02/21/2024 11:24 AM EST COMPREHENSIVE METABOLIC PANEL Routine 02/21/2024 11:24 AM EST CBC WITH AUTO DIFFERENTIAL Routine 02/21/2024 11:24 AM EST SARS COV2/INFLUENZA A/B AND RSV RNA QL NAAT Routine 02/21/2024 11:24 AM EST PAP SMEAR Routine 07/21/2023 10:28 AM EDT PROPHYLAXIS - ADULT Routine 06/03/2021 1 2:00 AM EST DIAGNOSTIC - DIAGNOSTIC IMAGING - INTRAORAL - COMPREHENSIVE SERIES OF RADIOGRAPHIC IMAGES Routine 05/19/2021 12:00 AM EST PERIODIC ORAL EVALUATION - ESTABLISHED PATIENT Routine 05/19/2021 12:00 AM EST from Last 3 Months or Most Recently Relevant to Health Maintenance Results * (ABNORMAL) Bacterial Vaginosis (04/03/2024 12:00 AM EST) Only the most recent of2 resultswithin the time period is included. TRICHOMONAS VAGINALIS DETECTION BY PCR NOT DETECTED Not Detect [facility] BACTERIAL VAGINOSIS DETECTION BY PCR POSITIVE(A) Negative [facility] Comment:The BV organism targ ets of [...] GROUP DETECTION BY PCR DETECTED(A) Not Detect [facility] [place] glab krusei PCR DETECTED(A) Not Detect [facility] 04/03/2024 04/03/2024 us Generic External Data Provider LAB MICROBIOLOGY - GENERAL ORDERABLES Final Result [facility] [address] [place] [phone] * Chlamydia/N. Gonorrhoeae RNA, TMA, Urogenitial (04/03/2024 12:00 AM EST) Only the most recent of2 resultswithin the time period is included. CT PCR NOT DETECTED Not Detect. [facility] Comment:A not detected test result does [...] psychologicalconsequences. NG PCR NOT DETECTED Not Detect. [facility] Comment:A not detected test result does [...] medical, social or psychologicalconsequences. 04/03/2024 04/03/2024 Narrative [facility] - 04/04/2024 3:11 AM EST Vaginal us Generic External Data Provider LAB MICROBIOLOGY - GENERAL ORDERABLES Final Result [facility] [address] [place] [phone] * Syphilis Screen (03/01/2024 1:40 PM EST) Syphilis Screen Nonreactive Nonreactive [facility] 03/01/2024 1:40 PM EST 03/01/2024 3:54 PM EST Generic External Data Provider LAB BLOOD ORDERAB LES Final Result Performing Organization Address [facility] de Phone Number [facility] [address] [place] [phone] * Hepatitis C Ab (03/01/2024 1:40 PM EST) Hepatitis C Antibody Nonreactive Nonreactive [facility] Comment:Antibodies to HCV no t detected; does not exclude early acuteHCV infection. 03/01/2024 1:40 PM EST 03/01/2024 3:54 PM EST Generic External Data Provider LAB BLOOD ORDERAB LES Final Result Performing Organization Address [facility] Phone Number [facility] [address] [place] [phone] * Hepatitis B surface antigen, EIA (03/01/2024 1:40 PM EST) Hepatitis B Surface Ag Negative Negative [facility] 03/01/2024 1:40 PM EST 03/01/2024 3:54 PM EST Generic External Data Provider LAB BLOOD ORDERAB LES Final Result Performing Organization Address [facility] Phone Number [facility] [address] [place] [phone] * HIV-1/2 Antigen and Antibodies, Fourth Generation, with Reflexes (03/01/2024 1:40 PM EST) HIV AB/AG Nonreactive Nonreactive [facility] Comment:HIV-1 p24 Ag and/or HIV-1/HIV-2 Ab not detected.A test result that is nonreactive does not exclude thepossibility of exposure to or infection with HIV-1 and/orHIV-2. Nonreactive results in this assay for individualswith prior exposure to HIV-1 and/or HIV-2 may be due toantigen and antibody levels that are below the limit ofdetection of this assay.The Gleason Alinity HIV Ag/Ab Combo assay result andsupplemental assay results should be interpreted inconjunction with the patient's clinical presentation,history and other laboratory results. If the results areinconsistent with clinical evidence, additional testing issuggested to confirm the result. 03/01/2024 1:40 PM EST 03/01/2024 3:54 PM EST Generic External Data Provider LAB BLOOD ORDERAB LES Final Result Performing Organization Address [facility] Co de Phone Number [facility] [address] [place] [phone] * Slide Review (02/21/2024 11:24 AM EST) Slide Review VERIFIED [facility] 02/21/2024 11:2 4 AM EST 02/21/2024 11:29 AM EST Generic External Data Provider LAB BLOOD ORDERAB LES Final Result Performing Organization Address [facility] Phone Number [facility] [address] [place] [phone] * High Sensitivity Troponin I (02/21/2024 11:24 AM EST) TROPONIN I HIGH SENSITIVITY <2.7 <3.5 - 17.0 ng/L [facility] Comment:The Gleason high sens itivity Troponin-I results should beused in conjunction with other diagnostic information suchas ECG, clinical observations and information, and patientsymptoms to aid in the diagnosis of [place]. 02/21/2024 11:2 4 AM EST 02/21/2024 3:56 PM EST Generic External Data Provider LAB BLOOD ORDERAB LES Final Result Performing Organization Address [facility] Co de Phone Number [facility] [address] [place] [phone] * SARS-CoV-2 RNA, Influenza A/B, and RSV RNA, Ql NAAT (02/21/2024 11:24 AM EST) Pathologist [facility] Influenza A PCR NEGATIVE Negative [facility] Influenza B PCR NEGATIVE Negative [facility] Resp Syncy Virus RNA Qual PCR NEGATIVE Negative [facility] SARS COV2 PCR NEGATIVE Negative [facility] Comment:All test results mus t be correlated with clinical findings.Negative results do not preclude SARS-CoV2, influenza Avirus, influenza B virus and/or RSV infectionand should not be used as the sole basis for treatment orother patient management decisions. Negative results must becombined with clinical observations, patient history, andepidemiological information.This test has not been evaluated for monitoring treatment ofinfection.This test has been authorized by the FDA under an EmergencyUse Authorization (EUA) for use by authorized laboratories.Testing performed on the [employer] GeneXpert utilizingreal-time RT-PCR.All SARS CoV2 and positive influenza A/B results arereported to [facility]. 02/21/2024 11:2 4 AM EST 02/21/2024 11:29 AM EST us Generic External Data Provider LAB MICROBIOLOGY - GENERAL ORDERABLES Final Result [facility] [address] [place] [phone] * (ABNORMAL) CBC auto differential (02/21/2024 11:24 AM EST) [facility] White Blood Count 17.4(H) 4.8 - 10.8 X10*3/uL [facility] Red Blood Count 4.47 4.20 - 5.50 X10*6/uL [facility] Hemoglobin 13.1 12.0 - 16.0 g/dl [facility] Hematocrit 37.6 37.0 - 47.0 % [facility] Mean Corpuscular Volume 84.1 80.0 - 98.0 fL [facility] Mean Corpuscular Hemoglobin 29.3 27.0 - 33.0 pg [facility] Mean Corpuscular HGB Conc 34.8 31.0 - 35.0 g/dl [facility] Red Cell Distribution Width 12.4 11.0 - 16.0 % [facility] Platelet Count 280 160 - 400 X10*3/uL [facility] Mean Platelet Volume 10.8 9.4 - 12.3 fL [facility] Neutrophils Percent Auto 91.2(H) 45 - 73 % [facility] Imm Gran Pct Auto 0.5(H) 0.0 - 0.4 % [facility] Lymphocytes Percent Auto 3.6(L) 20 - 40 % [facility] Monocytes Percent Auto 3.4 2 - 11 % [facility] Eosinophils Percent Auto 1.0 0 - 4 % [facility] Basophils Percent Auto 0.3 0 - 2 % [facility] NRBC Pct Auto 0.0 0.0 - 0.2 /100WBC [facility] Neutrophils Absolute Auto 15.9(H) 2.0 - 8.3 x10*3/uL [facility] Imm Gran Abs Auto 0.09(H) 0.00 - 0.03 X10*3/uL [facility] Lymphocytes Absolute Auto 0.6(L) 1.2 - 4.9 X10*3/uL [facility] Monocytes Absolute Auto 0.6 0.1 - 1.2 X10*3/uL [facility] Eosinophils Absolute Auto 0.2 0.0 - 0.4 X10*3/uL [facility] Basophils Absolute Auto 0.1 0.0 - 0.2 X10*3/uL [facility] NRBC Abs Auto 0.000 0.0 - 0.012 X10*3/uL [facility] 02/21/2024 11:2 4 AM EST 02/21/2024 11:29 AM EST us Generic External Data Provider LAB BLOOD ORDERAB LES Edited Result - Final [facility] [address] [place] [phone] * hCG, Total, Quantitative (02/21/2024 11:24 AM EST) Pathologist [facility] HCG Quantitative <2 mIU/mL [facility] Comment:Weeks post LMP Appro ximate hCG(Last Menstrual Period) Range (mIU/ml)3 - 4 weeks 9 - 1304 - 5 weeks 75 - 2,6005 - 6 weeks 850 - 20,8006 - 7 weeks 4000 - 100,2007 - 12 weeks 11,500 - 289,14563 - 16 weeks 18,300 - 137,57101 - 29 weeks (2nd trimester) 1,400 - 53,21611 - 41 weeks (3rd trimester) 940 - 60,000The Gleason B- hCG assay is used for the early detection ofpregnancy; it cannot be used to diagnose any conditionunrelated to . If a B-hCG level is not supportedby the clinical evidence, results should be confirmed by analternative method (qualitative urine hCG, for example). 02/21/2024 11:2 4 AM EST 02/21/2024 11:29 AM EST us Generic External Data Provider LAB BLOOD ORDERAB LES Final Result [facility] [address] [place] [phone] * (ABNORMAL) Comprehensive Metabolic Panel (02/21/2024 11:24 AM EST) [facility] Sodium 141 135 - 145 mmol/L [facility] Potassium 3.6 3.3 - 5.1 mmol/L [facility] Chloride 110(H) 96 - 108 mmol/L [facility] Carbon Dioxide 21(L) 22 - 29 mmol/L [facility] Anion Gap 14 12 - 20 [facility] Urea Nitrogen (BUN) 10 9 - 16 mg/dL [facility] Creatinine, Serum 0.68 0.5 - 1.4 mg/dL [facility] Creatinine Clr Calc Pharmacy 116.1 [facility] Comment:Provided height and weight: 165.1 cm,56.699 kg.eGFR (calculated from the MDRD study equation) and eCrCl(calculated from the Cockcroft-Gault equation) are based ondifferent parameters and may not yield comparable results.If eCrCl result is absurd, please check patient'sheight/weight. Estimated Glomerular Filt Rate >60 [facility] Comment:Chronic Kidney Disea se: Estimated GFR < 60 mL/min/1.10h1Vrnogu Kidney Disease: Estimated GFR < 15 mL/min/1.73m2 Glucose 109 60 - 115 mg/dL [facility] Calcium 8.9 8.4 - 10.2 mg/dL [facility] Bilirubin, Total 0.4 0.0 - 1.0 mg/dL [facility] Aspartate Amino Transferase 20 5 - 31 U/L [facility] Alanine Aminotransferase 23 0 - 31 U/L [facility] Total Protein 7.0 6.5 - 8.0 g/dL [facility] Albumin Level 4.4 3.5 - 5.0 g/dL [facility] Alkaline Phosphatase 69 39 - 117 U/L [facility] 02/21/2024 11:2 4 AM EST 02/21/2024 11:29 AM EST us Generic External Data Provider LAB BLOOD ORDERAB LES Final Result Performing Organization Address City/State/[facility] Co de Phone Number [facility] [address] [place] [phone] * Pap Smear (07/21/2023 10:28 AM EDT) 07/21/2023 10:2 8 AM EDT 07/25/2023 7:30 AM EDT Narrative [facility] - 08/12/2023 5:55 PM EDT ----- ------- Name: Ashanti Ontiveros ?Age/Sex: 22/F ? : 2000 Unit#: [id number] ?? Attend Dr: Judith uBllock CNM ?Re07/21/23 ?Status: DEP REF ? Location: HO.LNP ?Disch: ? ----- ------- SPEC : [id number] ? RECD: 07/25/23 ? STATUS: ??SOUT ? REQ NUM: [id number] ? MELVIN: 07/21/23-8 ? SUBM DR: Judith Bullock CNM ? ENTERED: ??07/25/23 ?SP TYPE: Pap Smr ?OTHR DR: Susie Nascimento LEGAL COMPLIANCE OFFICER ? ORDERED: ??Pap Smear ? Interpretation ?? Satisfactory for evaluation. ?? Negative for intraepithelial lesion or malignancy. ?Clinical Information LMP: 06/30/23 Previous PAP test: No pap hx ? Material Received ?? ThinPrep-Cervical Copies To: ?? Judith Bullock CNM ?? [address] [facility] ?? [place] [address] ?? [phone] ?? [facility] ?? [address] ?? [place] [address] ?? [phone] ----- ------- Signed (signature on file) Priti Tam Summer 08/12/231754 ? ----- ------- ? END OF REPORT ? us Generic External Data Provider LAB CYTOLOGY ANTONETTEE ARMANDO Final Result [facility] [address] [place] [phone] from Last 3 Months or Most Recently Relevant to Health Maintenance Insurance [place]-[facility] MEDICAID STAND ADULT DENTAL-[facility] MEDICAID STAND ADULT Care Teams It Architect Relationship Specialty Start Date End Date Carol Almaraz NP [address] [place] [phone] PCP - General Family Medicine 08/04/23
--- OUTSIDE RECORDS SUMMARY | 2024-05-03 16:01 | XMS_ITS | Clinical Summary ---
Author Organization [facility] ity Address [address] [place] [phone] Care Team Providers Care Telegraph Office Route Aide Name Role Phone Unavailable Primary Care Provider Unavailabl e Social History Tobacco Use Types Packs/Day Years Used Date Smoking Tobacco: Never Assessed Sex and Gender Information Value Date Recorded Sex Assigned at Not on file Gender Identity Not on file Sexual Orientation Not on file Obstetrics History Plan of Treatment Health Maintenance Due Date Last Done Comments Gonorrhea/Chlamydia Screening 2001 HPV Vaccines (1 - 3-dose series) 2016 DTaP,Tdap,and Td Vaccines (1 - Tdap) 2020 Hepatitis B Vaccines (1 of 3 - 19+ 3-dose series) 2020 Cervical Cancer Screening: P ap Smear 2022 COVID-19 Vaccine ( - 2023-2 5 season) 2023 Influenza Vaccine (#1) 2023 HIB Vaccines Aged Out No longer eligi ble based on patient's age to complete this topic Hepatitis A Vaccines Aged Out No long er eligible based on patient's age to complete this topic IPV Vaccines Aged Out No longer eligi ble based on patient's age to complete this topic MMR Vaccines Aged Out No longer eligi ble based on patient's age to complete this topic Meningococcal ACWY Vaccine Aged Out N o longer eligible based on patient's age to complete this topic Pneumococcal Vaccine: Pediat rics (0 to 5 Years) and At-Risk Patients (6 to 64 Years) Aged Out No longer eligible b ased on patient's age to complete this topic RSV Immunization Patients Un ivonne 20 months Aged Out No longer eligible b ased on patient's age to complete this topic Varicella Vaccines Aged Out No longer eligible based on patient's age to complete this topic
[2024-05-03 17:53] LABS: MANUAL DIFF FLAG NO
[2024-05-03 18:05] LABS: Basophils Percent Auto 0.5 % (0-2); Eosinophils Absolute Auto 0.3 X10*3/uL (0.0-0.4); Hematocrit 34.7 % (37.0-47.0); Imm Gran Abs Auto 0.02 X10*3/uL (0.00-0.03); Imm Gran Pct Auto 0.2 % (0.0-0.4); Lymphocytes Absolute Auto 2.2 X10*3/uL (1.2-4.9); Lymphocytes Percent Auto 26.6 % (20-40); Mean Corpuscular HGB Conc 34.6 g/dl (31.0-35.0); Mean Corpuscular Hemoglobin 29.1 pg (27.0-33.0); Mean Platelet Volume 11.6 fL (9.4-12.3); Monocytes Absolute Auto 0.4 X10*3/uL (0.1-1.2); Monocytes Percent Auto 5.2 % (2-11); Neutrophils Absolute Auto 5.4 x10*3/uL (2.0-8.3); Neutrophils Percent Auto 64.5 % (45-73); Platelet Count 262 X10*3/uL (160-400); Red Blood Count 4.13 X10*6/uL (4.20-5.50); White Blood Count 8.3 X10*3/uL (4.8-10.8)
[2024-05-03 18:08] LABS: Estimated Average Glucose 94 mg/dL; Hemoglobin A1C 96.1205 umol/L; Hemoglobin A1c % 4.9 % (<6.0); Total Hemoglobin (HGBA1C) 3190.6403 umol/L
[2024-05-03 18:19] LABS: Alanine Aminotransferase 15 U/L (0-31); Albumin Level 4.2 g/dL (3.5-5.0); Alkaline Phosphatase 63 U/L (39-117); Anion Gap 15 (12-20); Aspartate Amino Transferase 14 U/L (5-31); Bilirubin Total 0.2 mg/dL (0.0-1.0); Blood Urea Nitrogen 8 mg/dL (9-16); Calcium 9.3 mg/dL (8.4-10.2); Carbon Dioxide 25 mmol/L (22-29); Chloride 104 mmol/L (96-108); Estimated Glomerular Filt Rate > 60; Glucose Random 75 mg/dL (60-115); Iron 53 mcg/dL (30-160); Percent Iron Saturation 17 % (15-50); Potassium 3.7 mmol/L (3.3-5.1); Sodium 140 mmol/L (135-145); Total Iron Binding Capacity 307 mcg/dL (228-428); Total Protein 7.1 g/dL (6.5-8.0); Unsaturated Iron Binding 254 ug/dL
[2024-05-03 18:37] LABS: TSH reflex Free T4 0.38 uIU/mL (0.32-4.0)
== END 2024-05-03 16:00 | disposition home or self-care (01) ==
LOC: HO.HHCL 15:59
PROVIDERS: Visit Provider Nurse Practitioner Family
DX: D64.9 Anemia, unspecified (principal)
CPT/HCPCS: 36415; 80053; 83036; 83540; 84443; 85025

== ENCOUNTER 2024-05-21 13:45 | Outpatient (AMB) | payer MEDICAID, SELFPAY ==
--- NOTE | 2024-05-21 14:07 | MHC.OFFVIS ---
Intake Visit Reasons: Pre-Rt Gutierrez Mass Exc 05/27/24 Intake Note: Ashanti 23 yr old female presents today for a pre-op visit for her right hand gutiererz mass excision removal that is scheduled for 05/27/[address] Puga. Consent signed and question have been answered. Mud Boss Required: Yes Mud Boss Name: Mud Boss #[id number] Allergies No Known Allergies [No Known Allergies*] Allergy (Verified 05/21/24 14:13) Medication List - Last Reconciled 05/21/24 by Lucy Cheung RN albuterol sulfate 90 mcg/actuation 1 inh inhalation Q4-6H PRN metronidazole 0.75%(37.5mg/5gram) 1 appful vaginal BEDTIME 5 days miconazole nitrate 2% (Miconazole-7) 1 appful vaginal BEDTIME 7 days HPI HPI Pre-Rt Gutierrez Mass Exc 05/27/24: Details: Ashanti is a 23 year old 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 Georgian speaking woman who returns to discuss her right palmar hand mass. 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 She complains of a mass on her right palm for ~2 1/2 years. She says this is bothersome for her, and she reports feeling an occasional burning sensation radiating from her hand up the dorsal aspect of her forearm to her shoulder. I did explain to her that I do not think that the two are related.. 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 [facility] Medical History Personal history of asthma COVID-19 History of depression Personal history of anxiety disorder Family history of asthma and other chronic lower respiratory diseases Surgical History Hx of tubal ligation History of retained foreign body fully removed (12/23/21) Family History Maternal Grandmother Hx of breast cancer Diabetes mellitus Maternal Aunt No problems noted. 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, 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 Gender identity: Female Female Reproductive History Menstrual Age of Menarche: 13 Review of Systems Const All systems reviewed & are unremarkable except as noted in HPI and below Physical Exam Const General: no acute distress and alert Orientation/consciousness: patient oriented x3 Neuro General: patient oriented x3 Extrem Other: Evaluation of Right Upper Extremity: The patient is alert, oriented, and in no acute distress Neuro: Median, Ulnar, Radial nerves motor and sensory intact and sensation is normal to the tips of all digits Vascular: Cap refill brisk ROM: She can make a fist and extend all her digits No locking or catching There is a palpable mass, measuring ~1.5cm in diameter, in the volar aspect of the 1st webspace, just radial to index finger flexor tendons, proximal to mid-palmar crease. No overlying skin changes. Feels fluid-filled Somewhat TTP Right Hand MRI review: FINDINGS: There is a small slightly lobulated otherwise oval-shaped mass in the subcutaneous soft tissues in the thenar region just deep to the palmar aponeurosis and overlying the adductor pollicis muscle. See axial image 18 series 1019 and 1026. The mass measures 8 mm transverse, 4 mm AP, and 9 mm craniocaudal. The mass is dark on T1, predominantly bright on T2 with some heterogeneity with small linear and punctate areas of low signal extending through the mass. There is no definite enhancement. Surrounding soft tissues are normal. The remaining bones, joints and soft tissues are normal. IMPRESSION: Small slightly complex and likely cystic mass overlying the thenar soft tissues. Otherwise nonspecific. This does not have the appearance of a lipoma or vascular lesion. Jarod Mendoza MD 11/13/23 Psych Appearance: grossly normal Affect: normal affect Attitude: cooperative Assessment & Plan Assessment & Plan (1) Other bursal cyst, right hand: Code(s): M71.341 - Other bursal cyst, right hand Category: Medical (2) Personal history of anxiety disorder: Code(s): Z86.59 - Personal history of other mental and behavioral disorders Category: Medical (3) Asthma: Code(s): J45.909 - Unspecified asthma, uncomplicated Category: Medical Plan Assessment & Plan: 1. Right palmar hand mass Measuring ~1.5cm in diameter, in the volar aspect of the 1st webspace Most likely cystic or fluid filled I educated her about this condition I discussed operative and non-operative treatment options The patient would like to proceed with surgery The risks and benefits of operative treatment were discussed with the patient and the patient wishes to proceed with surgery. These risks include, but are not limited to risk of damage to blood vessels, nerves, tendons, infection, recurrence, incomplete relief of preoperative symptoms, persistent pain, possible need for further surgery and the risks associated with regional blocks and anesthesia. The plan is to take the patient to the operating room sometime on 05/27/24 for the following procedures: 1. Right hand palmar mass excision, under general All of the preoperative paperwork including the consent was reviewed today. All the patient's questions were answered. She denies Diabetes, blood thinners, heart, lung, kidney issues She reports having asthma, which is well-controlled Scribed for Viv Puga MD by Adrian Valdovinos, medical receptionist assistant, on 05/21/24 at 2:20 PM, EST. Coding Level of Care Code Est Pt Level 4 (25404) Diagnoses Other bursal cyst, right hand M71.341 Personal history of anxiety disorder Z86.59 Asthma J45.909
--- OUTSIDE RECORDS SUMMARY | 2024-05-21 17:04 | XMS_ITS | Encounter Summary ---
Author Organization [employer] Address [address] [facility] [address] [place] [address] Care Team Providers Care Clinic Office Assistant Name Role Phone Carol Almaraz EXPERIMENTAL ROCKETSLED MECHANIC Primary Care Provider [phone] Reason for Visit * Reason Comments Follow-up Encounter Details Date Type Department Care Team ([facility] st Contact Info) Description 05/03/2024 3:15 PM EST Office Visit [facility] [address] [place] [address] Carol Almaraz NP [address] [place] [address] Anemia, unspecified type (Primary Dx); Seizure (CMS/HCC); Pre-syncope; Anxiety and depression Social History Tobacco Use Types Packs/Day Years [...] 3:18 PM EST documented in this encounter Progress Notes * Carol Almaraz, KULDIP - 05/03/2024 3:15 PM EST Subjective Ashanti Bellamy is a 23 y.o. female who presents to the office for follow up visit - chronic conditions. 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 Cardiovascular: Positive for palpitations. In setting of these episodes Gastrointestinal: Positive for nausea. Neurological: Positive for syncope and light-headedness. Negative for tremors. Objective Visit Vitals BP 109/64 (BP Location: Left arm, Patient Position: Sitting, BP Cuff Size: Adult) Pulse 85 Temp 98 ??F (36.7 ??C) (Temporal) Resp 16 Ht 5' 5 (1.651 m) Wt 124 lb 6.4 oz (56.4 kg) LMP 04/17/2024 (Exact Date) SpO2 98% BMI 20.70 kg/m?? OB Status Having periods Smoking Status Never BSA 1.61 m?? Physical Exam Vitals reviewed. HENT: Head: Normocephalic and atraumatic. Nose: Nose normal. Eyes: Conjunctiva/sclera: Conjunctivae normal. Cardiovascular: Rate and Rhythm: Normal rate and regular rhythm. Heart sounds: Murmur heard. Comments: Systolic murmur, non radiating, 2/6 Pulmonary: Effort: Pulmonary effort is normal. Breath sounds: Normal breath sounds. Musculoskeletal: Cervical back: Normal range of motion and neck supple. Neurological: General: No focal deficit present. Mental Status: She is alert. Assessment/Plan Problem List Items Addressed This Visit Seizure (CMS/HCC) Current Assessment & Plan Hx of pediatric seizures, 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, no known seizure activity Anxiety and depression Current Assessment & Plan Pt denies concerns re mh outside of these episodes Anemia - Primary Current Assessment & Plan Pt reports hx of anemia, labs as ordered below Relevant Orders CBC auto differential (Completed) Iron And Total Iron Binding Capacity (Completed) Hemoglobin A1c (Completed) Comprehensive Metabolic Panel (Completed) TSH W/Reflex to FT4 (Completed) Pre-syncope Current Assessment & Plan Pt with episodes of panic, palpitations, nausea and if emesis , a sensation pt may faint, Encouraged abstaining from cannabis due to possibility of hyperemesis related to cannabis usage. Ptagreeable, aware of s/s should an episode occur before follow up Labs as ordered below, Return to clinic in 1-2 weeks to review symptoms and further work up prn Current Outpatient Medications Medication Sig Dispense Refill albuterol 108 (90 Base) MCG/ACT inhaler Inhale 2 puffs every 4 (four) hours if needed for wheezing or shortness of breath. 18 g 1 fluticasone (Flonase) 50 MCG/ACT nasal spray Administer 1-2 sprays into each nostril Once per day. Shake gently. Before first use, prime pump. After use, clean tip and replace cap. 16 g 2 Miconazole 7 2 % vaginal cream INSERT 1 APPLICATORFUL VAGINALLY EVERY DAY AT BEDTIME FOR 7 DAYS Spacer/Aero-Holding Chambers (OptiChamber Tayler) misc 1 each every 4 (four) hours if needed (asthma). (Patient not taking: Reported on 08/04/2023) 1 each 0 No current facility-administered medications for this visit. Visit Conducted in: Ukrainian Translation by: Whotever via telephone documented in this encounter Miscellaneous Notes * Assessment & Plan Note - Carol Almaraz NP - 05/05/2024 7:33 PM ESTAssociated Problem(s): Pre-syncope Pt with episodes of panic, palpitations, nausea and if emesis , a sensation pt may faint, Encouraged abstaining from cannabis due to possibility of hyperemesis related to cannabis usage. Ptagreeable, aware of s/s should an episode occur before follow up Labs as ordered below, Return to clinic in 1-2 weeks to review symptoms and further work up prn * Assessment & Plan Note - Carol Almaraz NP - 05/05/2024 7:32 PM ESTAssociated Problem(s): Anemia Pt reports hx of anemia, labs as ordered below * Assessment & Plan Note - Carol Almaraz NP - 05/05/2024 7:31 PM ESTAssociated Problem(s): Anxiety and depression Pt denies concerns re mh outside of these episodes * Assessment & Plan Note - Carol Almaraz NP - 05/05/2024 7:31 PM ESTAssociated Problem(s): Seizure (CMS/HCC) Hx of pediatric seizures, 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, no known seizure activity documented in this encounter Plan of Treatment Upcoming Encounters Date Type Department Care Team (Late st Contact Info) Description 06/14/2024 4:00 PM EDT Office Visit [facility] [address] [place], [place] [phone] Carol Almaraz NP [address] [place], [place] [phone] documented as of this encounter Procedures Procedure Name Priority Date/Time Associated Diagnosis Comments TSH W/REFLEX TO FT4 Routine 05/03/2024 4 :02 PM EST Anemia, unspecified type CBC WITH AUTO DIFFERENTIAL Routine 05/03/2024 4:02 PM EST Anemia, unspecified type IRON AND TOTAL IRON BINDING CAPACITY Routine 05/03/2024 4:02 PM EST Anemia, unspecified type HEMOGLOBIN A1C Routine 05/03/2024 4:02 PM EST Anemia, unspecified type COMPREHENSIVE METABOLIC PANEL Routine 05/03/2024 4:02 PM EST Anemia, unspecified type documented in this encounter Results * TSH W/Reflex to FT4 (05/03/2024 4:02 PM EST) TSH reflex Free T4 0.38 0.32 - 4.0 uIU/mL [facility] Blood Venous blood specimen / Unknown 05/03/2024 4:02 PM EST 05/03/2024 5:50 PM EST us Carol Almaraz EXPERIMENTAL ROCKETSLED MECHANIC LAB BLOOD ORDERABLES Final Resul t [facility] [address] [place] [phone] * (ABNORMAL) Comprehensive Metabolic Panel (05/03/2024 4:02 PM EST) Sodium 140 135 - 145 mmol/L [facility] Potassium 3.7 3.3 - 5.1 mmol/L [facility] Chloride 104 96 - 108 mmol/L [facility] Carbon Dioxide 25 22 - 29 mmol/L [facility] Anion Gap 15 12 - 20 [facility] Urea Nitrogen (BUN) 8(L) 9 - 16 mg/dL [facility] Creatinine, Serum 0.66 0.5 - 1.4 mg/dL [facility] Estimated Glomerular Filt Rate >60 [facility] Comment:Chronic Kidney Disea se: Estimated GFR < 60 mL/min/1.22d7Epntxr Kidney Disease: Estimated GFR < 15 mL/min/1.73m2 Glucose 75 60 - 115 mg/dL [facility] Calcium 9.3 8.4 - 10.2 mg/dL [facility] Bilirubin, Total 0.2 0.0 - 1.0 mg/dL [facility] Aspartate Amino Transferase 14 5 - 31 U/L [facility] Alanine Aminotransferase 15 0 - 31 U/L [facility] Total Protein 7.1 6.5 - 8.0 g/dL [facility] Albumin Level 4.2 3.5 - 5.0 g/dL [facility] Alkaline Phosphatase 63 39 - 117 U/L [facility] Blood Venous blood specimen / Unknown 05/03/2024 4:02 PM EST 05/03/2024 5:50 PM EST us Carol Almaraz EXPERIMENTAL ROCKETSLED MECHANIC LAB BLOOD ORDERABLES Final Resul t Performing Organization Address [facility] Co de Phone Number [facility] [address] [place] [phone] * Hemoglobin A1c (05/03/2024 4:02 PM EST) Hemoglobin A1c 4.9 <6.0 % [facility] Comment:Hemoglobin A1C Refer ence Range Adults: 4.8 - 6.0 % Non diabetic: < 6.0 % Goal: < 7.0 %Additional Action Suggested: > 8.0 %Note: Hemoglobin A1c results are invalid for patients with abnormal amounts of HbF. Blood transfusions may impact the HbA1c concentration in the patient sample. Estimated Average Glucose 94 mg/dL [facility] Comment:eAG = Estimated ave rage glucose which is %A1C expressed asaverage glucose, using the formula of the T0M-OgfhxooSopuwyo Glucose study (ADAG), Diabetes Care, Vol.31,#8,Oct. 2007 Blood Venous blood specimen / Unknown 05/03/2024 4:02 PM EST 05/03/2024 5:50 PM EST us Carol Almaraz EXPERIMENTAL ROCKETSLED MECHANIC LAB BLOOD ORDERABLES Final Resul t Performing Organization Address [facility] de Phone Number [facility] [address] [place] [phone] * Iron And Total Iron Binding Capacity (05/03/2024 4:02 PM EST) Iron 53 30 - 160 mcg/dL [facility] Total Iron Binding Capacity 307 228 - 428 mcg/dL [facility] Percent Iron Saturation 17 15 - 50 % [facility] Unsaturated Iron Binding 254 ug/dL [facility] Blood Venous blood specimen / Unknown 05/03/2024 4:02 PM EST 05/03/2024 5:50 PM EST us Carol Almaraz EXPERIMENTAL ROCKETSLED MECHANIC LAB BLOOD ORDERABLES Final Resul t Performing Organization Address [facility] Co de Phone Number [facility] [address] [place] [phone] * (ABNORMAL) CBC auto differential (05/03/2024 4:02 PM EST) White Blood Count 8.3 4.8 - 10.8 X10*3/uL [facility] Red Blood Count 4.13(L) 4.20 - 5.50 X10*6/uL [facility] Hemoglobin 12.0 12.0 - 16.0 g/dl [facility] Hematocrit 34.7(L) 37.0 - 47.0 % [facility] Mean Corpuscular Volume 84.0 80.0 - 98.0 fL [facility] Mean Corpuscular Hemoglobin 29.1 27.0 - 33.0 pg [facility] Mean Corpuscular HGB Conc 34.6 31.0 - 35.0 g/dl [facility] Red Cell Distribution Width 13.0 11.0 - 16.0 % [facility] Platelet Count 262 160 - 400 X10*3/uL [facility] Mean Platelet Volume 11.6 9.4 - 12.3 fL [facility] Neutrophils Percent Auto 64.5 45 - 73 % [facility] Imm Gran Pct Auto 0.2 0.0 - 0.4 % [facility] Lymphocytes Percent Auto 26.6 20 - 40 % [facility] Monocytes Percent Auto 5.2 2 - 11 % [facility] Eosinophils Percent Auto 3.0 0 - 4 % [facility] Basophils Percent Auto 0.5 0 - 2 % [facility] NRBC Pct Auto 0.0 0.0 - 0.2 /100WBC [facility] Neutrophils Absolute Auto 5.4 2.0 - 8.3 x10*3/uL [facility] Imm Gran Abs Auto 0.02 0.00 - 0.03 X10*3/uL [facility] Lymphocytes Absolute Auto 2.2 1.2 - 4.9 X10*3/uL [facility] Monocytes Absolute Auto 0.4 0.1 - 1.2 X10*3/uL [facility] Eosinophils Absolute Auto 0.3 0.0 - 0.4 X10*3/uL [facility] Basophils Absolute Auto 0.0 0.0 - 0.2 X10*3/uL [facility] NRBC Abs Auto 0.000 0.0 - 0.012 X10*3/uL [facility] Blood Venous blood specimen / Unknown 05/03/2024 4:02 PM EST 05/03/2024 5:50 PM EST us Carol Almaraz NP LAB BLOOD ORDERABLES Final Resul t [facility] [address] [place] [phone] documented in this encounter Visit Diagnoses Diagnosis Anemia, unspecified type- Primary Seizure (CMS/HCC) Other convulsions Pre-syncope Syncope and collapse Anxiety and depression documented in this encounter Additional Health Concerns Assessment Noted Time PHQ-9 Depression Total Score: 1 08/04/19 24 11:39 AM EDT documented as of this encounter Care Teams Clinic Office Assistant Relationship Specialty Start Date End Date Carol Almaraz NP [address] [place] [phone] PCP - General Family Medicine 08/04/23 documented as of this encounter
--- OUTSIDE RECORDS SUMMARY | 2024-05-21 17:04 | XMS_ITS | Clinical Summary ---
Author Organization [employer] Address [address] [facility] [address] [place] [address] Care Team Providers Care Finishing Manager Name Role Phone Carol Almaraz KULDIP Primary Care Provider [phone] Allergies No known active allergies Medications albuterol [...] Active Problems Problem Noted Date Diagnosed Date Pre-syncope 05/05/2024 Assessment & Plan (05/05/2024 7:34 PM EST): Pt with episodes of panic, palpitations, nausea and if emesis , a sensation pt may faint, Encouraged abstaining from cannabis due to possibility of hyperemesis related to cannabis usage. Pt agreeable, aware of s/s should an episode occur before follow up Labs as ordered below, Return to clinic in 1-2 weeks to review symptoms and further work up prn Anemia 05/03/2024 Assessment & Plan (05/05/2024 7:32 PM EST): Pt reports hx of anemia, labs as ordered below Anxiety and depression 09/06/2023 Assessment & Plan (05/05/2024 7:31 PM EST): Pt denies concerns re mh outside of these episodes Seasonal allergic rhinitis due to pollen 024 [...] pt plans to rtc and will complete [facility] [place] Dry eyes 02/27/2023 Asthma 02/02/2023 02/02/2023 Seizure 11/17/2016 02/02/2023 Assessment & Plan (05/05/2024 7:31 PM EST): Hx of pediatric seizures, 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, no known seizure activity Depressive disorder 10/28/2016 Posttraumatic stress disorder 10/28/2016 Oppositional defiant disorder 10/28/2016 Encounters Date Type Department Care Team Description 05/20/2024 Patient Outreach [facility] [address] [place] [address] Carol Almaraz NP Care Coordination (CM/CHW appt) 05/20/2024 Telephone [facility] [address] [place], [place] [phone] Carol Almaraz NP Care Management (C3CM- chart review) 05/03/2024 3:15 PM EST Office Visit [facility] [address] [place] [address] Carol Amlaraz NP Anemia, unspecified type (Primary Dx); Seizure (CMS/HCC); Pre-syncope; Anxiety and depression 04/03/2024 Orders Only GENERIC EXTERNAL DATA DEPARTMENT Provider, Generic External Data 03/28/2024 Telephone [facility] [address] [place] [address] Teresita Kang MA Chart Prep 03/01/2024 Orders [...] the past 12 months, has t he [employer], gas, oil or water company threatened to [...] Description 06/14/2024 4:00 PM EDT Office Visit [facility] [address] [place], [place] [phone] Carol Almaraz NP [address] [place], [place] [phone] Health Maintenance Due Date Last Done Comments [...] 2023 05/28/2021, 05/07/2021 Influenza Vaccine (#1) 2023 0, 03/06/2020, 06/07/2019, Additional history exists Dental X-Ray: Full Mouth 05/20/2024 05/19/2021, 05/26 Depression Screening 08/03/2024 08/04/2023, 08/04/19 24 SDOH Screening 08/03/2024 08/04/2023 Chlamydia and Gonorrhea Screening 04/03/2025 04/03/2024, 03/01/2024, 10/25/2023, Additional history exists Tobacco Screening 05/03/2025 05/03/2024 Pap Smear 07/20/2026 07/21/2023 Zoster Vaccines (1 [...] 4 :02 PM EST Anemia, unspecified type COMPREHENSIVE METABOLIC PANEL Routine 05/03/2024 4:02 PM EST Anemia, unspecified type HEMOGLOBIN A1C Routine 05/03/2024 4:02 PM EST Anemia, unspecified type IRON AND TOTAL IRON BINDING CAPACITY Routine 05/03/2024 4:02 PM EST Anemia, unspecified type CBC WITH AUTO DIFFERENTIAL Routine 05/03/2024 4:02 PM EST Anemia, unspecified type BACTERIAL VAGINOSIS PANEL Routine 04/03/2024 12:00 AM [...] ADULT Routine 06/03/2021 1 2:00 AM EST INTRAORAL - COMPLETE SERIES OF RADIOGRAPHIC IMAGES Routine 05/19/2021 12:00 AM EST PERIODIC ORAL EVALUATION - ESTABLISHED PATIENT Routine 05/19/2021 12:00 AM EST from Last 3 Months or Most Recently Relevant to Health Maintenance Results * TSH W/Reflex to FT4 (05/03/2024 4:02 PM EST) TSH reflex Free T4 0.38 0.32 - 4.0 uIU/mL [facility] Blood Venous blood specimen / Unknown 05/03/2024 4:02 PM EST 05/03/2024 5:50 PM EST us Carol Almaraz WASH MILL OPERATOR LAB BLOOD ORDERABLES Final Resul t [facility] [address] [place] [phone] * (ABNORMAL) CBC auto differential (05/03/2024 4:02 PM EST) Only the most recent of2 resultswithin the time period is included. White Blood Count 8.3 4.8 - 10.8 X10*3/uL [facility] Red Blood Count 4.13(L) 4.20 - 5.50 X10*6/uL [facility] Hemoglobin 12.0 12.0 - 16.0 g/dl [facility] Hematocrit 34.7(L) 37.0 - 47.0 % [facility] Mean Corpuscular Volume 84.0 80.0 - 98.0 fL [facility] Mean Corpuscular Hemoglobin 29.1 27.0 - 33.0 pg [facility] Mean Corpuscular HGB Conc 34.6 31.0 - 35.0 g/dl [facility] Red Cell Distribution Width 13.0 11.0 - 16.0 % [facility] Platelet Count 262 160 - 400 X10*3/uL [facility] Mean Platelet Volume 11.6 9.4 - 12.3 fL [facility] Neutrophils Percent Auto 64.5 45 - 73 % [facility] Imm Gran Pct Auto 0.2 0.0 - 0.4 % [facility] Lymphocytes Percent Auto 26.6 20 - 40 % [facility] Monocytes Percent Auto 5.2 2 - 11 % [facility] Eosinophils Percent Auto 3.0 0 - 4 % [facility] Basophils Percent Auto 0.5 0 - 2 % [facility] NRBC Pct Auto 0.0 0.0 - 0.2 /100WBC [facility] Neutrophils Absolute Auto 5.4 2.0 - 8.3 x10*3/uL [facility] Imm Gran Abs Auto 0.02 0.00 - 0.03 X10*3/uL [facility] Lymphocytes Absolute Auto 2.2 1.2 - 4.9 X10*3/uL [facility] Monocytes Absolute Auto 0.4 0.1 - 1.2 X10*3/uL [facility] Eosinophils Absolute Auto 0.3 0.0 - 0.4 X10*3/uL [facility] Basophils Absolute Auto 0.0 0.0 - 0.2 X10*3/uL [facility] NRBC Abs Auto 0.000 0.0 - 0.012 X10*3/uL [facility] Blood Venous blood specimen / Unknown 05/03/2024 4:02 PM EST 05/03/2024 5:50 PM EST us Carol Almaraz WASH MILL OPERATOR LAB BLOOD ORDERABLES Final Resul t [facility] [address] [place] [phone] [phone] * Iron And Total Iron Binding Capacity (05/03/2024 4:02 PM EST) Iron 53 30 - 160 mcg/dL [facility] Total Iron Binding Capacity 307 228 - 428 mcg/dL [facility] Percent Iron Saturation 17 15 - 50 % [facility] Unsaturated Iron Binding 254 ug/dL [facility] Blood Venous blood specimen / Unknown 05/03/2024 4:02 PM EST 05/03/2024 5:50 PM EST Carol Almaraz WASH MILL OPERATOR LAB BLOOD ORDERABLES Final Resul t Performing Organization Address [facility] de Phone Number [facility] [address] [place] [phone] * Hemoglobin A1c (05/03/2024 4:02 PM EST) Hemoglobin A1c 4.9 <6.0 % [facility] Comment:Hemoglobin A1C Refer ence Range Adults: 4.8 - 6.0 % Non diabetic: < 6.0 % Goal: < 7.0 %Additional Action Suggested: > 8.0 %Note: Hemoglobin A1c results are invalid for patients with abnormal amounts of HbF. Blood transfusions may impact the HbA1c concentration in the patient sample. Estimated Average Glucose 94 mg/dL [facility] Comment:eAG = Estimated ave rage glucose which is %A1C expressed asaverage glucose, using the formula of the D9C-UjyboyjVqqpstg Glucose study (ADAG), Diabetes Care, Vol.31,#8,Oct. 2007 Blood Venous blood specimen / Unknown 05/03/2024 4:02 PM EST 05/03/2024 5:50 PM EST us Carol Almaraz WASH MILL OPERATOR LAB BLOOD ORDERABLES Final Resul t Performing Organization Address [facility] Co de Phone Number [facility] [address] [place] [phone] [phone] * (ABNORMAL) Comprehensive Metabolic Panel (05/03/2024 4:02 PM EST) Only the most recent of2 resultswithin the time period is included. Sodium 140 135 - 145 mmol/L [facility] Potassium 3.7 3.3 - 5.1 mmol/L [facility] Chloride 104 96 - 108 mmol/L [facility] Carbon Dioxide 25 22 - 29 mmol/L [facility] Anion Gap 15 12 - 20 [facility] Urea Nitrogen (BUN) 8(L) 9 - 16 mg/dL [facility] Creatinine, Serum 0.66 0.5 - 1.4 mg/dL [facility] Estimated Glomerular Filt Rate >60 [facility] Comment:Chronic Kidney Disea se: Estimated GFR < 60 mL/min/1.93k3Zodsus Kidney Disease: Estimated GFR < 15 mL/min/1.73m2 Glucose 75 60 - 115 mg/dL [facility] Calcium 9.3 8.4 - 10.2 mg/dL [facility] Bilirubin, Total 0.2 0.0 - 1.0 mg/dL [facility] Aspartate Amino Transferase 14 5 - 31 U/L [facility] Alanine Aminotransferase 15 0 - 31 U/L [facility] Total Protein 7.1 6.5 - 8.0 g/dL [facility] Albumin Level 4.2 3.5 - 5.0 g/dL [facility] Alkaline Phosphatase 63 39 - 117 U/L [facility] Blood Venous blood specimen / Unknown 05/03/2024 4:02 PM EST 05/03/2024 5:50 PM EST us Carol Almaarz NP LAB BLOOD ORDERABLES Final Resul t [facility] [address] [place] [phone] * (ABNORMAL) Bacterial Vaginosis (04/03/2024 12:00 AM EST) Only the most recent of2 resultswithin the time period is included. TRICHOMONAS VAGINALIS DETECTION BY PCR NOT DETECTED Not Detect [facility] BACTERIAL VAGINOSIS DETECTION BY PCR POSITIVE(A) Negative [facility] Comment:The BV organism targ ets [...] GROUP DETECTION BY PCR DETECTED(A) Not Detect [facility] Madison glab krusei PCR DETECTED(A) Not Detect [facility] 04/03/2024 04/03/2024 us Generic External Data Provider LAB MICROBIOLOGY - GENERAL ORDERABLES Final Result [facility] [address] [place] [phone] * Chlamydia/N. Gonorrhoeae RNA, TMA, Urogenitial (04/03/2024 12:00 AM EST) Only the most recent of2 resultswithin the time period is included. CT PCR NOT DETECTED Not Detect. [facility] Comment:A not detected test result [...] psychologicalconsequences. NG PCR NOT DETECTED Not Detect. [facility] Comment:A not detected test result [...] medical, social or psychologicalconsequences. 04/03/2024 04/03/2024 Narrative [facility] - 04/04/2024 3:11 AM EST Vaginal Generic External Data Provider LAB MICROBIOLOGY - GENERAL ORDERABLES Final Result Performing Organization Address [facility] Number [facility] [address] [place] [phone] * Syphilis Screen (03/01/2024 1:40 PM EST) Syphilis Screen Nonreactive Nonreactive [facility] 03/01/2024 1:40 PM EST 03/01/2024 3:54 PM EST Generic External Data Provider LAB BLOOD ORDERAB LES Final Result Performing Organization Address [facility] Phone Number [facility] [address] [place] [phone] * Hepatitis C Ab (03/01/2024 1:40 PM EST) Hepatitis C Antibody Nonreactive Nonreactive [facility] Comment:Antibodies to HCV no t detected; does not exclude early acuteHCV infection. 03/01/2024 1:40 PM EST 03/01/2024 3:54 PM EST Generic External Data Provider LAB BLOOD ORDERAB LES Final Result Performing Organization Address [facility] de Phone Number [facility] [address] [place] [phone] * Hepatitis B surface antigen, EIA (03/01/2024 1:40 PM EST) Hepatitis B Surface Ag Negative Negative [facility] 03/01/2024 1:40 PM EST 03/01/2024 3:54 PM EST Generic External Data Provider LAB BLOOD ORDERAB LES Final Result Performing Organization Address City/[facility]/ZIP Co de Phone Number [facility] [address] [place] [phone] * HIV-1/2 Antigen and Antibodies, Fourth Generation, with Reflexes (03/01/2024 1:40 PM EST) HIV AB/AG Nonreactive Nonreactive [facility] Comment:HIV-1 p24 Ag and/or HIV-1/HIV-2 Ab not detected.A test result that is nonreactive does not exclude thepossibility of exposure to or infection with HIV-1 and/orHIV-2. Nonreactive results in this assay for individualswith prior exposure to HIV-1 and/or HIV-2 may be due toantigen and antibody levels that are below the limit ofdetection of this assay.The [employer] HIV Ag/Ab Combo assay result andsupplemental assay results should be interpreted inconjunction with the patient's clinical presentation,history and other laboratory results. If the results areinconsistent with clinical evidence, additional testing issuggested to confirm the result. 03/01/2024 1:40 PM EST 03/01/2024 3:54 PM EST us Generic External Data Provider LAB BLOOD ORDERAB LES Final Result Performing Organization Address [facility] Co de Phone Number [facility] [address] [place] [phone] * Slide Review (02/21/2024 11:24 AM EST) Slide Review VERIFIED [facility] 02/21/2024 11:2 4 AM EST 02/21/2024 11:29 AM EST Generic External Data Provider LAB BLOOD ORDERAB LES Final Result Performing Organization Address [facility] de Phone Number [facility] [address] [place] [phone] * High Sensitivity Troponin I (02/21/2024 11:24 AM EST) Pathologist [facility] TROPONIN I HIGH SENSITIVITY <2.7 <3.5 - 17.0 ng/L [facility] Comment:The Gleason high sens itivity Troponin-I results should beused in conjunction with other diagnostic information suchas ECG, clinical observations and information, and patientsymptoms to aid in the diagnosis of SD. 02/21/2024 11:2 4 AM EST 02/21/2024 3:56 PM EST Generic External Data Provider LAB BLOOD ORDERAB LES Final Result Performing Organization Address [facility] de Phone Number [facility] [address] [place] [phone] * SARS-CoV-2 RNA, Influenza A/B, and RSV RNA, Ql NAAT (02/21/2024 11:24 AM EST) [facility] Influenza A PCR NEGATIVE Negative [facility] Influenza B PCR NEGATIVE Negative [facility] Resp Syncy Virus RNA Qual PCR NEGATIVE Negative [facility] SARS COV2 PCR NEGATIVE Negative [facility] Comment:All test results mus t [...] use by authorized laboratories.Testing performed on the The 19th FloorXpert utilizingreal-time RT-PCR.All SARS CoV2 and positive influenza A/B results arereported to [facility]. 02/21/2024 11:2 4 AM EST 02/21/2024 11:29 AM EST Generic External Data Provider LAB MICROBIOLOGY - GENERAL ORDERABLES Final Result [facility] [address] [place] [phone] * hCG, Total, Quantitative (02/21/2024 11:24 AM EST) HCG Quantitative <2 mIU/mL [facility] Comment:Weeks post LMP Appro ximate hCG(Last Menstrual Period) Range (mIU/ml)3 - 4 weeks 9 - 1304 - 5 weeks 75 - 2,6005 - 6 weeks 850 - 20,8006 - 7 weeks 4000 - 100,2007 - 12 weeks 11,500 - 289,03827 - 16 weeks 18,300 - 137,75214 - 29 weeks (2nd trimester) 1,400 - 53,33352 - 41 weeks (3rd trimester) 940 - [...] Provider LAB BLOOD ORDERAB LES Final Result [facility] [address] [place] [phone] * Pap Smear (07/21/2023 10:28 AM EDT) 07/21/2023 10:2 8 AM EDT 07/25/2023 7:30 AM EDT Narrative [facility] - 08/12/2023 5:55 PM EDT ----- ------- Name: Ashanti Ontiveros ?Age/Sex: 22/F ? : 2000 Unit#: [id number] ?? Attend Dr: Judith Bullock CNM ?Re07/21/23 ?Status: DEP REF ? Location: HO.LNP ?Disch: ? ----- ------- SPEC : [id number] ? RECD: 07/25/23 ? STATUS: ??SOUT ? REQ NUM: [id number] ? MELVIN: 07/21/23-1027 ? SUBM DR: Judith Bullock CNM ? ENTERED: ??07/25/23-830 ?SP TYPE: Pap Smr ?OTHR DR: Susie Nascimento FLOOR SERVICE WORK[employer] ? ORDERED: ??Pap Smear ? Interpretation ?? Satisfactory for evaluation. ?? Negative for intraepithelial lesion or malignancy. ?Clinical Information LMP: 06/30/23 Previous PAP test: No pap hx ? Material Received ?? ThinPrep-Cervical Copies To: ?? Judith Bullock CNM ?? [address] ?? [place] [address] ?? [phone] ?? Susie Nascimento FLOOR SERVICE WORK[employer] ?? [address] [facility] ?? [place] [address] ?? [phone] ----- ------- Signed (signature on file) Priti Tam Summer 08/12/23 1200 ? ----- ------- ? END OF REPORT ? us Generic External Data Provider LAB CYTOLOGY MORTEZA ROBERTS Final Result [facility] [address] [place] [phone] [phone] from Last 3 Months or Most Recently Relevant to Health Maintenance [place] Care Teams Finishing Manager Relationship Specialty Start Date End Date Carol Almaraz NP [address] [place] [phone] PCP - General Family Medicine 08/04/23
--- OUTSIDE RECORDS SUMMARY | 2024-05-21 17:04 | XMS_ITS | Encounter Summary ---
Author Organization [employer] Address [address] [facility] 7t [place] [address] Care Team Providers Care Law Enforcement Officer Name Role Phone Carol Almaraz NP Primary Care Provider [phone] Reason for Visit * Reason Onset Date Comments Care Management 05/20/2024 [facility]- chart revi ew Encounter Details Date Type Department Care Team ([facility] st Contact Info) Description 05/20/2024 Telephone [facility] [address] [place] [address] Carol Almaraz NP [address] [place] [address] Care Management ([facility]- chart review) Social History Tobacco Use Types Packs/Day Years [...] AM EDT documented as of this encounter Miscellaneous Notes * Telephone Encounter - Huma Miranda RN - 05/20/2024 8:43 AM EST CAYLA Miranda RN, performed chart review, in anticipation of initial assessment with patient, as patient has stratified for C3 Adult Complex Care through the ADT feed. History significant for pediatric seizures, anxiety and depression, anemia, and presyncope. Specialists include [facility] Women's Services, Orthopedic Surgery (ganglion cyst), and Allergy. ED visits within the last 12 months include [facility] ED on 05/19/24 for eval of chest pain/ bilateral rib pain/generalized body aches/ fatigue and nausea. Patient left without being seen. Last appointment in PCP office on 05/03/24. Next appointment scheduled for 06/14/24 at 4:00pm for follow up with PCP. documented in this encounter Plan of Treatment Upcoming Encounters Date Type Department Care Team (Late st Contact Info) Description 06/14/2024 4:00 PM EDT Office Visit [facility] [address] [place] [phone] Carol Almaraz NP [address] [place] [address] documented as of this encounter Visit Diagnoses Not on filedocumented in this encounter Additional Health Concerns Assessment Noted Time PHQ-9 Depression Total Score: 1 08/04/19 24 11:39 AM EDT documented as of this encounter Care Teams Law Enforcement Officer Relationship Specialty Start Date End Date Carol Almaraz NP [address] [place] [phone] PCP - General Family Medicine 08/04/23 documented as of this encounter
--- OUTSIDE RECORDS SUMMARY | 2024-05-21 17:04 | XMS_ITS | Clinical Summary ---
Author Organization [facility] Address [address] [place] [address] Care Team Providers Care Mattress Inspector Name Role Phone Unavailable Primary Care Provider Unavailabl e Social History Tobacco Use Types Packs/Day Years Used Date Smoking Tobacco: Never Assessed Comments Unknown Sex and Gender Information Value Date Recorded Sex Assigned at Not on file Legal Sex Female 10:55 PM EST Gender Identity Not on file Sexual Orientation Not on file Obstetrics History Plan of Treatment Health Maintenance Due Date Last Done Comments Gonorrhea/Chlamydia Screening 2001 HPV Vaccines (1 - 3-dose series) 2016 Meningococcal B Vacine (1 of 2 - Standard) 2017 DTaP,Tdap,and Td Vaccines (1 - Tdap) 2020 [...]
--- OUTSIDE RECORDS SUMMARY | 2024-05-21 17:04 | XMS_ITS | Encounter Summary ---
Author Organization [employer] Address [address] [facility] [address] [place] [address] Care Team Providers Care Social Worker School Name Role Phone Carol Almaraz [employer]IL SCIENTIST Primary Care Provider [phone] Reason for Visit * Reason Comments Care Coordination CM/CHW appt Encounter Details Date Type Department Care Team (Latest Contact Info) Description 05/20/2024 Patient Outreach [facility] [address] [place] [address] Carol Almaraz NP [address] [place] [address] Care Coordination (CM/CHW appt) Social History Tobacco Use Types Packs/Day Years [...] AM EDT documented as of this encounter Progress Notes * Christen Wells - 05/20/2024 2:14 PM EST CHW Christen Wells, placed outbound call to patient introducing herself from [facility] CM Department, in regard to offering services. Patient's name and was confirmed. Patient agrees to participate in program. Appt. for initial assessment scheduled for 06/06/24 @ 10AM tele with CM Huma Miranda RN. CHW reinforced direct contact information or CM for any additional questions or concerns and extended clinic hours on Mondays and Wednesdays, and Walk-In Urgent Care Located in [facility]. Patient provided with after-hours line for [facility], ,which offer nighttime triage service and option to transfer to irrigation flume layer provider if needed. Patient v erbalizes understanding, and able to repeat back to jingle writer. documented in this encounter Plan of Treatment Upcoming Encounters Date Type Department Care Team (Late st Contact Info) Description 06/14/2024 4:00 PM EDT Office Visit [facility] [address] [place] [address] Carol Almaraz NP [address] [place], [place] [phone] documented as of this encounter Visit Diagnoses Not on filedocumented in this encounter Additional Health Concerns Assessment Noted Time PHQ-9 Depression Total Score: 1 05/10/20 24 11:39 AM EDT documented as of this encounter Care Teams Social Worker School Relationship Specialty Start Date End Date Carol Almaraz NP [address] [place] [phone] PCP - General Family Medicine 08/04/23 documented as of this encounter
== END 2024-05-21 14:33 | disposition home or self-care (01) ==
PROVIDERS: PCP Nurse Practitioner Family; Visit Provider Orthopaedic Surgery
DX: M71.341 Other bursal cyst, right hand (principal); J45.909 Unspecified asthma, uncomplicated
CPT/HCPCS: 99024

== ENCOUNTER → 2024-05-21 13:45 | Outpatient (BNVA) | payer MEDICAID, SELFPAY | PROVIDERS: PCP Nurse Practitioner Family; Visit Provider Orthopaedic Surgery | DX: M71.341 Other bursal cyst, right hand (principal); J45.909 Unspecified asthma, uncomplicated; Z86.59 Personal history of other mental and behavioral disorders | CPT/HCPCS: 99212 ==

== ENCOUNTER 2024-05-27 06:05 | Day surgery (SDC) | payer MEDICAID, SELFPAY ==
[2024-05-27] VITALS (10 sets, daily range): BP systolic 83–115; BP diastolic 35–79; PULSE 60–90; RESP 14–16; TEMP 36.8–36.9; O2SAT 97–100
[2024-05-27] MEDS: Lactated Ringers 1,000 ML 100 ML IVCONT (06:34)
--- NOTE | 2024-05-27 07:25 | P.CONAN_ITS ---
Documented by User: Dolores Gupta NP 05/23/24 14:57 HPI - Anesthesia Eval Consult details Narrative: 23yo F for Right Excision Palmar hand mass PMFSH Active Problems Active Problems: All Active Problems Yeast infection of the vagina (Acute) Asthma (Acute) Other bursal cyst, right hand (Acute) Hand pain, right (Acute) Lipoma (Acute) Problematic vaginal discharge (Acute) Cervical cancer screening (Acute) Hx of tubal ligation (Acute) Circumvallate placenta (Acute) Yeast infection involving the vagina and surrounding area (Acute) Supervision of normal intrauterine in multigravida (Acute) screening for malformation using ultrasonics (Acute) Personal history of asthma (Acute) Family history of diabetes mellitus (DM) (Acute) test positive (Acute) control counseling (Acute) Vaginal discharge (Acute) Potential exposure to STD (Acute) Depot contraception (Acute) Acute vaginitis (Acute) Lactating mother (Acute) History of depression (Acute) Personal history of anxiety disorder (Acute) Family history of asthma and other chronic lower respiratory diseases (Acute) Past Medical History Medical History (Updated 05/27/24 @ 06:36 by Lucy Marcus RN) Personal history of asthma COVID-19 History of depression Personal history of anxiety disorder Family history of asthma and other chronic lower respiratory diseases Family History Family History Maternal Grandmother Hx of breast cancer Diabetes mellitus Maternal Aunt No problems noted. Brother History of attention deficit hyperactivity disorder (ADHD) Daughter Family history of sickle cell trait Autism Mother Hydrocephalus Surgical History Surgical History Hx of tubal ligation History of retained foreign body fully removed (12/23/21) Social History Social History Household Members: Children Housing: Apartment Are you a primary nursing care attendant to a significant other at home: No Do you presently have visiting nurse or other home services: No Alcohol intake: never Patient Tobacco Use Status: Never used Tobacco Use of substances other than those prescribed or required for medical reasons: No Agree to transfusion: Yes Are you DNR?: No Advance Directives: No Advance Directives Information Provided: Yes service: No Current occupational status: employed 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, 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 Gender identity: Female Meds Allergies Allergy/AdvReac Type Severity Reaction Status Date / Time No Known Allergies Allergy Verified 05/27/24 06:33 [No Known Allergies*] Active Medications: Current Medications Cefazolin Sodium/Dextrose (Ancef) 2 gm in 50 mls @ 100 mls/hr IV PREOP ONE Stop: 05/27/24 05:29 Home Medications ?Medication ?Instructions ?Recorded ?Confirmed ?Last Taken ?Type albuterol sulfate 90 mcg/actuation 1 inh inhalation Q4-6H PRN 03/24/20 05/27/24 Unknown History breath activated powder inhaler Shortness Of Breath Or Wheezing Exam Pertinent Lab Results Pertinent Lab Results: Laboratory Tests 05/03/24 16:02 WBC 8.3 Hgb 12.0 Hct 34.7 L Plt Count 262 Sodium 140 Potassium 3.7 Chloride 104 Carbon Dioxide 25 BUN 8 L Creatinine 0.66 Assessment and Plan Assessment Anesthesia Assessment: Chart Reviewed Documented by User: Lucy Gordon DO 05/27/24 07:27 [facility] Past Medical History Medical History (Updated 05/27/24 @ 06:36 by Lucy Marcus RN) Personal history of asthma COVID-19 History of depression Personal history of anxiety disorder Family history of asthma and other chronic lower respiratory diseases Family History Family History Maternal Grandmother Hx of breast cancer Diabetes mellitus Maternal Aunt No problems noted. Brother History of attention deficit hyperactivity disorder (ADHD) Daughter Family history of sickle cell trait Autism Mother Hydrocephalus Family history of problems with anesthesia: No Surgical History Surgical History Hx of tubal ligation History of retained foreign body fully removed (12/23/21) History of Problems with Anesthesia: No Social History Social History Household Members: Children Housing: Apartment Are you a primary nursing care attendant to a significant other at home: No Do you presently have visiting nurse or other home services: No Alcohol intake: never Patient Tobacco Use Status: Never used Tobacco Use of substances other than those prescribed or required for medical reasons: No Agree to transfusion: Yes Are you DNR?: No Advance Directives: No Advance Directives Information Provided: Yes service: No Current occupational status: employed 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, 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 Gender identity: Female Meds Allergies Allergy/AdvReac Type Severity Reaction Status Date / Time No Known Allergies Allergy Verified 05/27/24 06:33 [No Known Allergies*] Home Medications ?Medication ?Instructions ?Recorded ?Confirmed ?Last Taken ?Type albuterol sulfate 90 mcg/actuation 1 inh inhalation Q4-6H PRN 03/24/20 05/27/24 Unknown History breath activated powder inhaler Shortness Of Breath Or Wheezing Exam Exam Date and Time: 05/27/24 0723 Height,Weight and Vital Signs: Height 5 ft 5 in Weight 54.6 kg Vital Signs Temperature 98.2 F 05/27/24 06:33 Pulse Rate 90 05/27/24 06:33 Respiratory Rate 15 05/27/24 06:33 Blood Pressure 103/60 05/27/24 06:33 Pulse Oximetry 98 05/27/24 06:33 Oxygen Delivery Method Room Air 05/27/24 06:33 Temperature 98.2 F 05/27/24 06:33 Pulse Rate 90 05/27/24 06:33 Respiratory Rate 15 05/27/24 06:33 Blood Pressure 103/60 05/27/24 06:33 Pulse Oximetry 98 05/27/24 06:33 Oxygen Delivery Method Room Air 05/27/24 06:33 Airway Mallampati Class: I TM Dist: >3cm Neck ROM: Full Loose/Missing/Broken Teeth: No (patient denies any loose or broken teeth) Heart: S1S2 Lungs: CTAB Assessment and Plan Assessment Anesthesia Assessment: Anesthesia Plan Discussed and Chart Reviewed Final Anesthetic Review Family History of Problems with Anesthesia: No History of Problems with Anesthesia: No NPO: Yes ASA Class: II Final Preanesthetic Review: No Changes in Pt Med Stat, Meds/Allgs Chart Reviewed, Consent Obtained/Reviewed and Anes Risks/Benef Reviewed Patient Risk: Low Procedure Risk: Low Anesthetic Plan Anesthetic Plan: GA and Agree w/ Assess. and Plan Disposition: Standard PACU
--- NOTE | 2024-05-27 07:42 | P.OP_ITS ---
Operative Note Operative Note Date of Service: 05/27/24 Narrative: Operative Note Narrative: Preop diagnosis: 1. Right palmar hand mass Postop diagnosis: Same Procedure: 1. Right palmar hand mass excisional biopsy Surgeon: Viv Puga MD Packing And Stamping Machine Operator: None Anesthesia: General Anesthesia Findings: Dark purple spherical soft tissue mass, proximally 1 cm in diameter. Most consistent with a possible hemangioma. Implants: None Tourniquet time: 13 minutes EBL: 5.0 ml Specimen: Right palmar hand mass sent for histopathology Drains: None Complications: None Disposition: Brought to the recovery room in stable condition Plan: Follow-up in 10-14 days for wound check, suture removal and to check pathology Indications: The patient is a 23 year old young woman with right palmar hand mass . The risks and benefits of operative treatment, including but not limited to risk of damage to blood vessels, nerves, tendons, infection, recurrence, persistent pain or numbness, incomplete resolution of preoperative symptoms, or need for further surgery were discussed with the patient and they wished to proceed with surgery. Procedure: Once consent was obtained patient was brought back to the operating suite and placed in the operating table in a supine position. . Perioperative antibiotics and anesthesia was administered by the anesthesia team. A tourniquet was applied to the proximal aspect of the right upper extremity and the limb was prepped and draped in a standard surgical fashion. The limb was elevated exsanguinated with Esmarch bandage and the tourniquet inflated to 250 mm of mercury for a total tourniquet time of 13 minutes. A 1.5 cm oblique incision was made centered over the soft tissue mass in the palm of the hand on the thenar side of the thenar crease. The incision was made through the skin to the subcutaneous tissues using a 15. Blade. I then carefully dissected down to the level of the soft tissue mass using tenotomy and iris scissors. The mass was a dark purple spherical mass most consistent with a possible hemangioma. It measured about a cm in diameter. It had several small feeder vessels that were cauterized using bipolar electrocautery. The mass was then removed and placed on the back table to be sent for histopathology. At this point the tourniquet was deflated and hemostasis obtained with a brief period of local pressure and bipolar electrocautery. The wound was copiously irrigated with normal saline. The skin edges were reapproximated with 5-0 nylon suture and A sterile dressing was applied. The patient appears to have tolerated the procedure well and with no complications. All digits were well vascularized conclusion of the case.
--- NOTE | 2024-05-27 07:42 | MHC.SHP ---
Pre-Procedural Eval Section A - 24 Hr Update-Section A only Date of Service: 05/27/24 The patient is an INPATIENT: No Changes since office visit: No Cold of Flu in the past 2 weeks, No New Medical Problems, No Changes in Medication and No Patient answered all questions The patient has been examined within 24 hours of the surgical procedure. The History & Physical has been completed within 30 days and I have reviewed it.: Yes Section B - Complete if H&P > 30 days Chief Complaint: Other bursal cyst, right hand Allergies: Allergies Allergy/AdvReac Type Severity Reaction Status Date / Time No Known Allergies Allergy Verified 05/27/24 06:33 [No Known Allergies*] Plan I have reviewed the history and physical and performed a pertinent physical examination on my patient. No changes have occurred unless specified. Time Spent With Patient Time: Total time managing care of this patient today ____ minutes.
[2024-05-27] MEDS: fentaNYL citrate/PF 100 MCG/2 ML VIAL 25 MCG IVPUSH ×2 (09:20→09:25)
[2024-05-27] MEDS: oxyCODONE HCl Immed Release 5 MG TABLET PO (09:20)
== END 2024-05-27 10:42 | disposition home or self-care (01) ==
PROVIDERS: Visit Provider Orthopaedic Surgery
PROC: (CPT 26115; principal; 2024-05-27 07:30)
DX: D18.01 Hemangioma of skin and subcutaneous tissue (principal); J45.909 Unspecified asthma, uncomplicated; Z86.59 Personal history of other mental and behavioral disorders; Z79.899 Other long term (current) drug therapy; Z98.890 Other specified postprocedural states
CPT/HCPCS: 26115; 88304; 88305; J0131; J0690; J1100; J2003; J2250; J2405; J2704; J3010

== ENCOUNTER → 2024-05-27 06:05 | Outpatient (BNV) | payer MEDICAID, SELFPAY | PROVIDERS: Visit Provider Orthopaedic Surgery | DX: R22.31 Localized swelling, mass and lump, right upper limb (principal); D18.01 Hemangioma of skin and subcutaneous tissue | CPT/HCPCS: 26115 ==

== ENCOUNTER 2024-06-05 09:38 | Emergency (ER) | payer MEDICAID, SELFPAY ==
[2024-06-05 09:58] VITALS: BP 106/62; PULSE 84; RESP 20; TEMP 37.1; O2SAT 99; BMI 20.2
[2024-06-05 10:46] LABS: MANUAL DIFF FLAG NO
[2024-06-05 10:56] LABS: Basophils Percent Auto 0.2 % (0-2); Eosinophils Absolute Auto 0.1 X10*3/uL (0.0-0.4); Eosinophils Percent Auto 1.1 % (0-4); Hematocrit 37.7 % (37.0-47.0); Hemoglobin 12.7 g/dl (12.0-16.0); Imm Gran Abs Auto 0.05 X10*3/uL (0.00-0.03); Imm Gran Pct Auto 0.4 % (0.0-0.4); Lymphocytes Percent Auto 7.6 % (20-40); Mean Corpuscular HGB Conc 33.7 g/dl (31.0-35.0); Mean Corpuscular Hemoglobin 28.2 pg (27.0-33.0); Mean Corpuscular Volume 83.6 fL (80.0-98.0); Mean Platelet Volume 11.1 fL (9.4-12.3); Monocytes Absolute Auto 0.5 X10*3/uL (0.1-1.2); Monocytes Percent Auto 3.5 % (2-11); Neutrophils Absolute Auto 11.3 x10*3/uL (2.0-8.3); Neutrophils Percent Auto 87.2 % (45-73); Platelet Count 275 X10*3/uL (160-400); Red Blood Count 4.51 X10*6/uL (4.20-5.50); Red Cell Distribution Width 12.7 % (11.0-16.0); White Blood Count 12.9 X10*3/uL (4.8-10.8)
[2024-06-05 11:02] LABS: Alanine Aminotransferase 21 U/L (0-31); Albumin Level 4.3 g/dL (3.5-5.0); Alkaline Phosphatase 69 U/L (39-117); Anion Gap 10 (12-20); Aspartate Amino Transferase 16 U/L (5-31); Bilirubin Total 0.3 mg/dL (0.0-1.0); Blood Urea Nitrogen 11 mg/dL (9-16); Carbon Dioxide 23 mmol/L (22-29); Chloride 109 mmol/L (96-108); Creatinine Clr Calc Pharmacy 109.1; Estimated Glomerular Filt Rate > 60; Glucose Random 101 mg/dL (60-115); Potassium 3.6 mmol/L (3.3-5.1); Sodium 138 mmol/L (135-145); Total Protein 7.4 g/dL (6.5-8.0)
[2024-06-05 11:31] LABS: Influenza A PCR NEGATIVE (Negative); Influenza B PCR NEGATIVE (Negative); Resp Syncy Virus RNA Qual PCR NEGATIVE (Negative); SARS COV2 PCR INHOUSE NEGATIVE (Negative)
[2024-06-05 11:53] LABS: CDiff Gene PCR NEGATIVE (Negative)
[2024-06-05 13:16] LABS: Adenovirus F 40/41 Not Detected (Not Detect.); Astrovirus Not Detected (Not Detect.); Campylobacter Not Detected (Not Detect.); Cryptosporidium Not Detected (Not Detect.); Cyclospora cayetanensis Not Detected (Not Detect.); E. coli EAEC Not Detected (Not Detect.); E. coli EPEC Not Detected (Not Detect.); E. coli ETEC Not Detected (Not Detect.); E. coli STEC Not Detected (Not Detect.); Entamoeba histolytica Not Detected (Not Detect.); Giardia lamblia Not Detected (Not Detect.); Norovirus GI/GII Not Detected (Not Detect.); Plesiomonas shigelloides Not Detected (Not Detect.); Rotavirus A Not Detected (Not Detect.); Salmonella Not Detected (Not Detect.); Sapovirus Not Detected (Not Detect.); Shigella sp./EIEC Not Detected (Not Detect.); Vibrio Not Detected (Not Detect.); Vibrio Cholerae Not Detected (Not Detect.); Yersinia enterocolitica Not Detected (Not Detect.)
[2024-06-05 16:32] VITALS: BP 99/74; PULSE 60; RESP 18; TEMP 36.8; O2SAT 98
--- NOTE | 2024-06-05 18:40 | ED_ITS ---
HPI - Nausea/Vomiting/Diarrhea General Chief complaint: Nausea/Vomiting/Diarrhea Stated complaint: Headache Stomach Pain Etc Time Seen by Provider: 06/05/24 17:22 Source: patient and other (Significant other) Mode of arrival: ambulatory Limitations: language barrier (Patient was 1st language is Welsh, she does speak Ecuadorean, she did not want a interpreter and translator) History of Present Illness ED Provider: Dr. Bimal Alicea HPI Narrative: 23-year-old female with a history of asthma who presents emergency department for evaluation of nausea, vomiting, diarrhea, abdominal pain, headache x2 days. Patient states that her son was recently hospitalized at [facility] for 4 days with an E coli infection and norovirus. Patient states that she was feeling well until 2 days ago when she developed nausea and vomiting. She states she was vomited at least 6 times a day and has only been able to hold down a small amount of fluid. She was also developed watery, nonbloody diarrhea, 6 episodes per day. Patient also is complaining of epigastric pain which is a constant, burning sensation which is 8/10 at its worst. Patient was complaining of a throbbing headache which is mild to moderate intensity. She had subjective fevers and chills at home. She denied chest pain, shortness of breath or cough. Related Data Home Medications ?Medication ?Instructions ?Recorded ?Confirmed albuterol sulfate 90 mcg/actuation 1 inh inhalation Q4-6H PRN 03/24/20 05/27/24 breath activated powder inhaler Shortness Of Breath Or Wheezing Previous Rx's ?Medication ?Instructions ?Recorded metronidazole 0.75 % (37.5 mg/5 1 appful vaginal BEDTIME 5 days 03/04/24 gram) vaginal gel #70 grams miconazole nitrate 2 % vaginal 1 appful vaginal BEDTIME 7 days 04/03/24 cream (Miconazole-7) #45 grams oxycodone 5 mg tablet 5 mg PO Q8H PRN pain (scale score 05/27/24 4-6) #5 tab-caps acetaminophen 500 mg tablet 1,000 mg (2 x 500 mg) PO Q6H PRN 06/05/24 (Tylenol Extra Strength) fever or pain #20 tabs ibuprofen 400 mg tablet 400 mg PO TID PRN fever or pain 06/05/24 #30 tabs ondansetron 4 mg disintegrating 4 mg PO Q6-8H PRN nausea and 06/05/24 tablet vomiting #14 tabs Allergies Allergy/AdvReac Type Severity Reaction Status Date / Time No Known Allergies Allergy Verified 06/05/24 10:00 [No Known Allergies*] Review of Systems 2 Review of Systems: Yes all other systems are reviewed and are negative [facility] Past Medical History [facility] Narrative: Social history: She denies tobacco, alcohol and drug use. She was here with her significant other. Medical History (Updated 06/05/24 @ 20:47 by Bimal Alicea MD) Personal history of asthma COVID-19 History of depression Personal history of anxiety disorder Family history of asthma and other chronic lower respiratory diseases Surgical History Hx of tubal ligation History of retained foreign body fully removed (12/23/21) Family History Family History Maternal Grandmother Hx of breast cancer Diabetes mellitus Maternal Aunt No problems noted. Brother History of attention deficit hyperactivity disorder (ADHD) Daughter Family history of sickle cell trait Autism Mother Hydrocephalus Social History Social History Household Members: Children Housing: Apartment Are you a primary manager care management to a significant other at home: No Do you presently have visiting nurse or other home services: No Alcohol intake: never Patient Tobacco Use Status: Never used Tobacco Smoked in Last 30 Days: Yes Agree to transfusion: Yes Advance Directives: No Advance Directives Information Provided: Yes Patient : No service: No Current occupational status: employed 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, 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 Gender identity: Female Physical Exam 2 Vital Signs: Vital Signs: Last Vital Signs Temp 99.1 F 06/05/24 19:00 Pulse 80 06/05/24 19:00 Resp 18 06/05/24 19:00 BP 100/53 L 06/05/24 19:00 Pulse Ox 98 06/05/24 19:00 O2 Del Method Room Air 06/05/24 19:00 BMI result Body Mass Index 20.2 Vital signs were normal Exam: General: Awake, alert in no distress Head: Normocephalic, atraumatic EENT: PERRL, Lids normal, sclera normal, conjunctiva normal, nose normal , ears normal, throat without erythema or exudates Neck: Supple, no adenopathy Lung: breath sounds symmetric, no wheezing, rales or rhonchi Chest: symmetric movement, nontender Heart: regular rate and rhythm, normal S1, S2 no murmurs or rubs Abdomen: soft, moderate epigastric tenderness, nondistended, normal bowel sounds Back: no vertebral tenderness, no CVAT Extremities: no deformities, moves all extremities symmetrically Neuro: Awake, alert, oriented, normal speech, cranial nerves intact, moves all extremities symmetrically Psych: Pleasant, cooperative Medications Administered Discontinued Medications Generic Name Dose Route Start Last Admin Trade Name Freq PRN Reason Stop Dose Admin Sodium Chloride 1,000 mls @ 999 mls/hr 06/05/24 18:39 06/05/24 18:54 Ns IV 06/05/24 19:39 999 mls/hr .Q1H1M STA Administration Ketorolac Tromethamine 15 mg 06/05/24 18:39 06/05/24 19:05 Ketorolac Tromethamine 15 Mg/Ml Vial IVPUSH 06/05/24 18:40 15 mg ONCE STA Administration Loperamide HCl 4 mg 06/05/24 18:39 06/05/24 19:05 Loperamide Hcl 2 Mg Capsule PO 06/05/24 18:40 4 mg ONCE ONE Administration Ondansetron HCl 4 mg 06/05/24 18:39 06/05/24 19:05 Ondansetron Hcl 4 Mg/2 Ml Vial IVPUSH 06/05/24 18:40 4 mg ONCE ONE Administration Medical Decision Making Medical Decision Making [facility] Narrative: 23-year-old female with a history of asthma who presents emergency department for evaluation of nausea, vomiting, diarrhea, abdominal pain, headache x2 days. Patient patient had 6 episodes of vomiting per day and 6 episodes of nonbloody watery diarrhea per day. She was not been able to eat or drink secondary to her symptoms. Patient points to her epigastric area when described her pain. Vital signs were normal. Examination did reveal epigastric tenderness I otherwise unremarkable. Differential diagnosis: ?Includes but is not limited to viral syndrome, norovirus, gastroenteritis, C diff colitis, anemia, electrolyte abnormalities Course: 18:43 My independent interpretation patient's laboratory evaluation as follows: WBC elevated 12,900. CMP and liver panel were normal. COVID-19, influenza and RSV tests were negative. C difficile test was negative. Patient was presentation and exam is consistent with acute viral gastroenteritis most likely norovirus. I ordered normal saline IV x1 L, Toradol 15 mg IV and Zofran 4 mg IV. Patient was also given Imodium 4 mg orally for her diarrhea. 20:42 Patient states she was feeling significantly better after the above treatment. Patient was able to drink sandra milana and eat crackers. Patient was prescribed ibuprofen 400 mg 3 times a day as needed for pain and fever, Tylenol 1000 mg 3 times a day as needed for pain and fever and Zofran 4 mg ODT every 6-8 hours as needed for nausea and vomiting. She was also advised to by [id number] Imodium and to use it as directed. She was given printed and verbal instructions and discharged home. Admission/Observation Consideration of admission/observation: Escalation of care including admission/observation considered (Yes) Lab Data MDM Lab Attestation statement: I reviewed the patient's lab results. 06/05/24 10:35 06/05/24 10:35 Labs: Lab Results 06/05/24 Range/Units 10:35 WBC 12.9 H (4.8-10.8) X10*3/uL RBC 4.51 (4.20-5.50) X10*6/uL Hgb 12.7 (12.0-16.0) g/dl Hct 37.7 (37.0-47.0) % MCV 83.6 (80.0-98.0) fL MCH 28.2 (27.0-33.0) pg MCHC 33.7 (31.0-35.0) g/dl RDW 12.7 (11.0-16.0) % Plt Count 275 (160-400) X10*3/uL MPV 11.1 (9.4-12.3) fL Immature Gran % (Auto) 0.4 (0.0-0.4) % Neut % (Auto) 87.2 H (45-73) % Lymph % (Auto) 7.6 L (20-40) % [place] % (Auto) 3.5 (2-11) % Eos % (Auto) 1.1 (0-4) % Baso % (Auto) 0.2 (0-2) % Lymph # (Auto) 1.0 L (1.2-4.9) X10*3/uL [place] # (Auto) 0.5 (0.1-1.2) X10*3/uL Eos # (Auto) 0.1 (0.0-0.4) X10*3/uL Baso # (Auto) 0.0 (0.0-0.2) X10*3/uL Abs Immat Gran (auto) 0.05 H (0.00-0.03) X10*3/uL Absolute Neuts (auto) 11.3 H (2.0-8.3) x10*3/uL Absolute Nucleated RBC 0.000 (0.0-0.012) X10*3/uL Nucleated RBC % (auto) 0.0 (0.0-0.2) /100WBC Sodium 138 (135-145) mmol/L Potassium 3.6 (3.3-5.1) mmol/L Chloride 109 H (96-108) mmol/L Carbon Dioxide 23 (22-29) mmol/L Anion Gap 10 L (12-20) BUN 11 (9-16) mg/dL Creatinine 0.68 (0.5-1.4) mg/dL Estim Creat Clear Calc 109.1 Estimated GFR > 60 Random Glucose 101 (60-115) mg/dL Calcium 9.0 (8.4-10.2) mg/dL Total Bilirubin 0.3 (0.0-1.0) mg/dL AST 16 (5-31) U/L ALT 21 (0-31) U/L Alkaline Phosphatase 69 (39-117) U/L Total Protein 7.4 (6.5-8.0) g/dL Albumin 4.3 (3.5-5.0) g/dL Stl C. cayetanensis PCR Not Detected (Not Detect.) Stool Rotavirus A PCR Not Detected (Not Detect.) Stl Adenov F 40/41 PCR Not Detected (Not Detect.) Stool Astrovirus (PCR) Not Detected (Not Detect.) Stool Campylobacter PCR Not Detected (Not Detect.) Stool Cryptosporidium PCR Not Detected (Not Detect.) Stl Sh Tox Pr E STEC PCR Not Detected (Not Detect.) Stool E coli O157 PCR Not applicable (Not Detect.) Stl Enterotoxigenic E PCR Not Detected (Not Detect.) Stool EPEC (PCR) Not Detected (Not Detect.) Stool EAEC (PCR) Not Detected (Not Detect.) Stl E. histolytica PCR Not Detected (Not Detect.) Stool Giardia Lamblia PCR Not Detected (Not Detect.) Stl P. shigelloides PCR Not Detected (Not Detect.) Stool Salmonella PCR Not Detected (Not Detect.) Stool Sapovirus (PCR) Not Detected (Not Detect.) Stl Shigella/EIEC PCR Not Detected (Not Detect.) St Y.enterocolitica PCR Not Detected (Not Detect.) Stool Vibrio (PCR) Not Detected (Not Detect.) Stl Vibrio cholerae PCR Not Detected (Not Detect.) Stl Norovirus GI/GII PCR Not Detected (Not Detect.) C. difficile Tox B Gene NEGATIVE (Negative) Influenza Type A (PCR) NEGATIVE (Negative) Influenza Type B (PCR) NEGATIVE (Negative) RSV RNA Qual (PCR) NEGATIVE (Negative) SARS-CoV-2 RNA (RT-PCR) NEGATIVE (Negative) Independent Historian Clinical information obtained from an independent historian. History obtained from or confirmed by: Other (Significant other) Prescription Management I considered prescription management with: Pain Medication and Other (Antiemetic: Zofran ODT) Ibuprofen and Tylenol Discharge Plan Discharge Clinical Impression: Viral syndrome Nausea & vomiting Qualifiers: Vomiting type: unspecified Qualified Code(s): R11.2 - Nausea with vomiting, unspecified Abdominal pain Qualifiers: Abdominal location: epigastric Qualified Code(s): R10.13 - Epigastric pain Diarrhea Qualifiers: Diarrhea type: unspecified type Qualified Code(s): R19.7 - Diarrhea, unspecified Patient Disposition: Home, Self-Care Instructions: Viral Syndrome (ED) Additional Instructions: Your blood work revealed a slightly elevated white blood cell count otherwise was unremarkable. Your COVID-19, influenza and RSV tests were negative. Your symptoms are consistent with a viral infection most likely the norovirus. Take ibuprofen 400 mg pills, 1 pills every 6 hours as needed for pain or fever. Take Tylenol (acetaminophen) 500 mg pills, 2 pills every 6 hours as needed for pain or fever. Take Zofran ODT 4 mg pills, 1 pill dissolved in your mouth every 8 hours as needed for nausea and vomiting. For diarrhea I want you to take Imodium 2 mg pills. ?Take 2 pills after the 1st loose, diarrheal stool then 1 pill after each loose, diarrheal stool up to 8 pills per day. ?This usually stops diarrhea within 24 hours. For the next 24 hours, stay on a PEDRO diet (bananas, rice, applesauce, tea and toast). Follow-up with your doctor in 2 days. Please return to the emergency department if your symptoms get worse or if you develop any symptoms that are concerning to you. Prescriptions: New acetaminophen [Tylenol Extra Strength] 500 mg tablet 1,000 mg PO Q6H PRN (Reason: fever or pain) Qty: 20 0RF ibuprofen 400 mg tablet 400 mg PO TID PRN (Reason: fever or pain) Qty: 30 0RF ondansetron 4 mg tablet,disintegrating 4 mg PO Q6-8H PRN (Reason: nausea and vomiting) Qty: 14 0RF No Action metronidazole 0.75 % (37.5mg/5 gram) gel 1 appful vaginal BEDTIME 5 Days Qty: 70 0RF oxycodone 5 mg tablet 5 mg PO Q8H PRN (Reason: pain (scale score 4-6)) Qty: 5 0RF Rx Instructions: Partial Fill upon patient request. albuterol sulfate 90 mcg/actuation aerosol powdr breath activated 1 inh inhalation Q4-6H PRN (Reason: Shortness Of Breath Or Wheezing) miconazole nitrate [Miconazole-7] 2 % cream 1 appful vaginal BEDTIME 7 Days Qty: 45 2RF Rx Instructions: Use now for vaginal yeast infection and in future for recurrence of symptoms... Print Language: Welsh
--- OUTSIDE RECORDS SUMMARY | 2024-06-05 18:45 | XMS_ITS | Encounter Summary ---
Author Organization [id number] Address [address] [facility] [address] [place] [address] Care Team Providers Care Radiological Technologist Name Role Phone Carol Almaraz KULDIP Primary Care Provider [phone] Encounter Details Date Type Department Care Team (Late st Contact Info) Description 06/05/2024 Orders Only GENERIC EXTERNAL DATA DEPARTMENT Provider, [...] Description 06/14/2024 4:00 PM EDT Office Visit [facility] MED[facility]INE [address] [place] [address] Carol Almaraz NP [address] [place], [place] [phone] documented as of this encounter Procedures Procedure Name Priority Date/Time Associated Diagnosis Comments CDIFF GENE PCR Routine 06/05/2024 10:35 AM EDT GASTROINTESTINAL PANEL Routine 10:35 AM EDT SARS COV2/INFLUENZA A/B AND RSV RNA QL NAAT Routine 06/05/2024 10:35 AM EDT CBC WITH AUTO DIFFERENTIAL Routine 06/05/2024 10:35 AM EDT COMPREHENSIVE METABOLIC PANEL Routine 06/05/2024 10:35 AM EDT documented in this encounter Results * Gastrointestinal panel (06/05/2024 10:35 AM EDT) Campylobacter Not Detected Not Detect. [facility] Plesiomonas shigelloides Not Detected Not Detect. [facility] Salmonella Not Detected Not Detect. [facility] Vibrio Not Detected Not Detect. [facility] Vibrio cholerae Not Detected Not Detect. [facility] YERSINIA ENTEROCOLITICA Not Detected Not Detect. [facility] Enteroaggregative E. coli (EAEC) Not Detected Not Detect. [facility] Enteropathogenic E. coli (EPEC) Not Detected Not Detect. [facility] Enterotoxigenic E. coli (ETEC) lt/st Not Detected Not Detect. [facility] Shiga-like toxin-producing E. coli (STEC) stx1/stx2 Not Detected Not Detect. [facility] E coli O157 Not applicable Not Detect. [facility] Comment:E. coli containing t he O157 antigen are a subset ofShiga-like toxin- producing E. coli (STEC). Shigella/Enteroinvasive E. coli (EIEC) Not Detected Not Detect. [facility] Cryptosporidium Not Detected Not Detect. [facility] Cyclospora cayetanensis Not Detected Not Detect. [facility] Entamoeba histolytica Not Detected Not Detect. [facility] Giardia lamblia Not Detected Not Detect. [facility] Adenovirus F 40/41 Not Detected Not Detect. [facility] Astrovirus Not Detected Not Detect. [facility] Norovirus GI/GII Not Detected Not Detect. [facility] Rotavirus A Not Detected Not Detect. [facility] Sapovirus Not Detected Not Detect. [facility] Comment: All results must be correlated with clinical findings.Negative results do not exclude the possibility ofgastrointestinal infection and should not be used as thesole basis for diagnosis, treatment, or other managementdecisions. Virus, bacteria, and parasite nucleic acid maypersist in vivo independently of organism viability.Additionally, some organisms may be carriedasymptomatically.Detection of organism targets does not imply that thecorresponding organisms are infectious or are the causativeagents for clinical symptoms. There is a risk of falsenegative values due to the presence of sequence variants inthe gene targets of the assay, amplification inhibitors inspecimens, or inadequate numbers of organisms foramplification.The identification of several diarrheagenic E. colipathotypes has historically relied upon phenotypiccharacteristics. This panel targets genetic determinantscharacteristic of most pathogenic strains, but may notdetect all strains having phenotypic characteristics of apathotype.The performance of this test has not been established formonitoring treatment of infection with any of the panelorganisms.This assay is performed by Multiplexed PCR, utilizing [employer]. 06/05/2024 10:3 5 AM EDT 06/05/2024 10:44 AM EDT Generic External Data Provider LAB MICROBIOLOGY - GENERAL ORDERABLES Final Result Performing Organization Address [facility] Co de Phone Number [facility] [address] [place] [phone] * CDiff Gene PCR (06/05/2024 10:35 AM EDT) CDiff Gene PCR NEGATIVE Negative [facility] Comment:If C. difficile stro ngly suspected despite one negativetest, a second test may be sent vs. empiric treatment forC. difficile infection. 06/05/2024 10:3 5 AM EDT 06/05/2024 10:44 AM EDT Generic External Data Provider LAB BODY FLUIDS A ND STOOLS ORDERABLES Final Result Performing Organization Address [facility] Co de Phone Number [facility] [address] [place] [address] [phone] SARS-CoV-2 RNA, Influenza A/B, and RSV RNA, Ql NAAT (06/05/2024 10:35 AM EDT) Influenza A PCR NEGATIVE Negative [facility] Influenza B PCR NEGATIVE Negative [facility] Resp Syncy Virus RNA Qual PCR NEGATIVE Negative [facility] SARS COV2 PCR NEGATIVE Negative [facility] Comment:All test results mus t [...] use by authorized laboratories.Testing performed on the [employer] GeneXpert utilizingreal-time RT-PCR.All SARS CoV2 and positive influenza A/B results arereported to [facility]. 06/05/2024 10:3 5 AM EDT 06/05/2024 10:44 AM EDT us Generic External Data Provider LAB MICROBIOLOGY - GENERAL ORDERABLES Final Result [facility] [address] [place] [phone] * (ABNORMAL) Comprehensive Metabolic Panel (06/05/2024 10:35 AM EDT) Sodium 138 135 - 145 mmol/L [facility] Potassium 3.6 3.3 - 5.1 mmol/L [facility] Chloride 109(H) 96 - 108 mmol/L [facility] Carbon Dioxide 23 22 - 29 mmol/L [facility] Anion Gap 10(L) 12 - 20 [facility] Urea Nitrogen (BUN) 11 9 - 16 mg/dL [facility] Creatinine, Serum 0.68 0.5 - 1.4 mg/dL [facility] Creatinine Clr Calc Pharmacy 109.1 [facility] Comment:Provided height and weight: 162.56 cm,53.3 kg.eGFR (calculated from the MDRD study equation) and eCrCl(calculated from the Cockcroft-Gault equation) are based ondifferent parameters and may not yield comparable results.If eCrCl result is absurd, please check patient'sheight/weight. Estimated Glomerular Filt Rate >60 [facility] Comment:Chronic Kidney Disea se: Estimated GFR < 60 mL/min/1.24i7Rdpybm Kidney Disease: Estimated GFR < 15 mL/min/1.73m2 Glucose 101 60 - 115 mg/dL [facility] Calcium 9.0 8.4 - 10.2 mg/dL [facility] Bilirubin, Total 0.3 0.0 - 1.0 mg/dL [facility] Aspartate Amino Transferase 16 5 - 31 U/L [facility] Alanine Aminotransferase 21 0 - 31 U/L [facility] Total Protein 7.4 6.5 - 8.0 g/dL [facility] Albumin Level 4.3 3.5 - 5.0 g/dL [facility] Alkaline Phosphatase 69 39 - 117 U/L [facility] 06/05/2024 10:3 5 AM EDT 06/05/2024 10:44 AM EDT us Generic External Data Provider LAB BLOOD ORDERAB LES Final Result [facility] [address] [place] [address] [phone] * (ABNORMAL) CBC auto differential (06/05/2024 10:35 AM EDT) White Blood Count 12.9(H) 4.8 - 10.8 X10*3/uL [facility] Red Blood Count 4.51 4.20 - 5.50 X10*6/uL [facility] Hemoglobin 12.7 12.0 - 16.0 g/dl [facility] Hematocrit 37.7 37.0 - 47.0 % [facility] Mean Corpuscular Volume 83.6 80.0 - 98.0 fL [facility] Mean Corpuscular Hemoglobin 28.2 27.0 - 33.0 pg [facility] Mean Corpuscular HGB Conc 33.7 31.0 - 35.0 g/dl [facility] Red Cell Distribution Width 12.7 11.0 - 16.0 % [facility] Platelet Count 275 160 - 400 X10*3/uL [facility] Mean Platelet Volume 11.1 9.4 - 12.3 fL [facility] Neutrophils Percent Auto 87.2(H) 45 - 73 % [facility] Imm Gran Pct Auto 0.4 0.0 - 0.4 % [facility] Lymphocytes Percent Auto 7.6(L) 20 - 40 % [facility] Monocytes Percent Auto 3.5 2 - 11 % [facility] Eosinophils Percent Auto 1.1 0 - 4 % [facility] Basophils Percent Auto 0.2 0 - 2 % [facility] NRBC Pct Auto 0.0 0.0 - 0.2 /100WBC [facility] Neutrophils Absolute Auto 11.3(H) 2.0 - 8.3 x10*3/uL [facility] Imm Gran Abs Auto 0.05(H) 0.00 - 0.03 X10*3/uL [facility] Lymphocytes Absolute Auto 1.0(L) 1.2 - 4.9 X10*3/uL [facility] Monocytes Absolute Auto 0.5 0.1 - 1.2 X10*3/uL [facility] Eosinophils Absolute Auto 0.1 0.0 - 0.4 X10*3/uL [facility] Basophils Absolute Auto 0.0 0.0 - 0.2 X10*3/uL [facility] NRBC Abs Auto 0.000 0.0 - 0.012 X10*3/uL [facility] 06/05/2024 10:3 5 AM EDT 06/05/2024 10:44 AM EDT us Generic External Data Provider LAB BLOOD ORDERAB LES Final Result Performing Organization Address City/State/[facility] Co de Phone Number [facility] [address] [place] [phone] documented in this encounter Visit Diagnoses Not on filedocumented in this encounter Additional Health Concerns Assessment Noted Time PHQ-9 Depression Total Score: 1 08/04/19 24 11:39 AM EDT documented as of this encounter Care Teams Radiological Technologist Relationship Specialty Start Date End Date Carol Almaraz NP [address] [place] [address] PCP - General Family Medicine 08/04/23 documented as of this encounter
--- OUTSIDE RECORDS SUMMARY | 2024-06-05 18:45 | XMS_ITS | Encounter Summary ---
Author Organization [employer] Address [address] [facility] [address] [place] [address] Care Team Providers Care Nuclear Radiation Engineer Name Role Phone Carol Almaraz NP Primary Care Provider [phone] Reason for Visit * Reason Onset Date Comments Care Management 05/20/2024 [facility]- chart revi ew Encounter Details Date Type Department Care Team ([facility] st Contact Info) Description 05/20/2024 Telephone [facility] MED[facility] [address] [place] [address] Carol Almaraz NP [address] [place] [address] Care Management ([facility]- chart review) Social History Tobacco Use [...] and depression, anemia, and presyncope. Specialists include [facility] Women's Services, Orthopedic Surgery (ganglion cyst), and Allergy. ED visits within the last 12 months include [facility] ED on 05/19/24 for eval of chest [...] 4:00 PM EDT Office Visit [facility] MED[facility] [address] [place] [address] Carol Almaraz NP [address] [place] [address] documented as of this encounter Visit Diagnoses Not on filedocumented in this encounter Additional Health Concerns Assessment Noted Time PHQ-9 Depression Total Score: 1 08/04/19 24 11:39 AM EDT documented as of this encounter Care Teams Nuclear Radiation Engineer Relationship Specialty Start Date End Date Carol Almaraz NP [address] [place] [phone] PCP - General Family Medicine 08/04/23 documented as of this encounter
--- OUTSIDE RECORDS SUMMARY | 2024-06-05 18:45 | XMS_ITS | Clinical Summary ---
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, no known seizure activity Depressive disorder 10/28/2016 Posttraumatic stress disorder 10/28/2016 Oppositional defiant disorder 10/28/2016 Encounters Date Type Department Care Team Description 06/05/2024 Orders Only GENERIC EXTERNAL DATA DEPARTMENT Provider, Generic External Data 06/04/2024 Telephone [facility] [address] [place] [address] Teresita Kang MA Chart Prep 05/27/2024 Orders Only GENERIC EXTERNAL DATA DEPARTMENT Provider, Generic External Data 05/20/2024 Patient Outreach [facility] [address] [place] [phone] Carol Almaraz NP Care Coordination (CM/CHW appt) 05/20/2024 Telephone [facility] [address] [place] [phone] Carol Almaraz NP Care Management (C3CM- chart review) 05/03/2024 3:15 PM EST Office Visit [facility] [address] [place] [address] [phone] Carol Almaraz NP Anemia, unspecified type (Primary Dx); Seizure (CMS/HCC); Pre-syncope; Anxiety and depression 04/03/2024 Orders Only GENERIC EXTERNAL DATA DEPARTMENT Provider, Generic External Data 03/28/[address] [address] Teresita Kang MA Chart Prep from Last 3 Months Immunizations Name Administration [...] Description 06/14/2024 4:00 PM EDT Office Visit [facility] [address] [place], [place] [phone] Carol Almaraz NP [address] [place] [address] Health Maintenance Due Date Last Done Comments [...] GENE PCR Routine 06/05/2024 10:35 AM EDT COMPREHENSIVE METABOLIC PANEL Routine 06/05/2024 10:35 AM EDT CBC WITH AUTO DIFFERENTIAL Routine 06/05/2024 10:35 AM EDT GASTROINTESTINAL PANEL Routine 10:35 AM EDT SARS COV2/INFLUENZA A/B AND RSV RNA QL NAAT Routine 06/05/2024 10:35 AM EDT GROSS AND MICROSCOPIC LEVEL 3 Routine 05/27/2024 8:16 AM EST TSH W/REFLEX TO FT4 Routine 05/03/2024 4 [...] TMA, UROGENITAL Routine 04/03/2024 12:00 AM EST HEPATITIS C ANTIBODY Routine 03/01/2024 1:40 PM EST HIV 1/2 ANTIGEN/ANTIBODY, FOURTH GENERATION W/RFL Routine 03/01/2024 1:40 PM EST PAP SMEAR Routine 07/21/2023 10:28 AM EDT PROPHYLAXIS - ADULT Routine 06/03/2021 1 2:00 AM EST INTRAORAL - COMPLETE SERIES OF RADIOGRAPHIC IMAGES Routine 05/19/2021 12:00 AM EST PERIODIC ORAL EVALUATION - ESTABLISHED PATIENT Routine 05/19/2021 12:00 AM EST from Last 3 Months or Most Recently Relevant to Health Maintenance Results * CDiff Gene PCR (06/05/2024 10:35 AM EDT) Pathologist [facility] CDiff Gene PCR NEGATIVE Negative [facility] Comment:If C. difficile stro ngly suspected despite one negativetest, a second test may be sent vs. empiric treatment forC. difficile infection. 06/05/2024 10:3 5 AM EDT 06/05/2024 10:44 AM EDT us Generic External Data Provider LAB BODY FLUIDS A ND STOOLS ORDERABLES Final Result [facility] [address] [place] [phone] * Gastrointestinal panel (06/05/2024 10:35 AM EDT) [facility] Campylobacter Not Detected Not Detect. [facility] Plesiomonas shigelloides Not Detected Not Detect. [facility] Salmonella Not Detected Not Detect. [facility] Vibrio Not Detected Not Detect. [facility] Vibrio cholerae Not Detected Not Detect. [facility] YERSINIA ENTEROCOLITICA Not Detected Not Detect. [facility] Enteroaggregative E. coli (EAEC) Not Detected Not Detect. [facility] Enteropathogenic E. coli (EPEC) Not Detected Not Detect. [facility] Enterotoxigenic E. coli (ETEC) lt/st Not Detected Not Detect. [facility] Shiga-like toxin-producing E. coli (STEC) stx1/stx2 Not Detected Not Detect. [facility] E coli O157 Not applicable Not Detect. [facility] Comment:E. coli containing t he O157 antigen are a subset ofShiga-like toxin- producing E. coli (STEC). Shigella/Enteroinvasive E. coli (EIEC) Not Detected Not Detect. [facility] Cryptosporidium Not Detected Not Detect. [facility] Cyclospora cayetanensis Not Detected Not Detect. [facility] Entamoeba histolytica Not Detected Not Detect. [facility] Giardia lamblia Not Detected Not Detect. [facility] Adenovirus F 40/41 Not Detected Not Detect. [facility] Astrovirus Not Detected Not Detect. [facility] Norovirus GI/GII Not Detected Not Detect. [facility] Rotavirus A Not Detected Not Detect. [facility] Sapovirus Not Detected Not Detect. [facility] Comment: All results must be [...] assay is performed by Multiplexed PCR, utilizing [employer] Film Array. 06/05/2024 10:3 5 AM EDT 06/05/2024 10:44 AM EDT us Generic External Data Provider LAB MICROBIOLOGY - GENERAL ORDERABLES Final Result [facility] [address] [place] [phone] * SARS-CoV-2 RNA, Influenza A/B, and RSV RNA, Ql NAAT (06/05/2024 10:35 AM EDT) Influenza A PCR NEGATIVE Negative [facility] Influenza B PCR NEGATIVE Negative [facility] Resp Syncy Virus RNA Qual PCR NEGATIVE Negative [facility] SARS COV2 PCR NEGATIVE Negative [facility] Comment:All test results mus [...] use by authorized laboratories.Testing performed on the [employer] utilizingreal-time RT-PCR.All SARS CoV2 and positive influenza A/B results arereported to [facility]. 06/05/2024 10:3 5 AM EDT 06/05/2024 10:44 AM EDT Generic External Data Provider LAB MICROBIOLOGY - GENERAL ORDERABLES Final Result [facility] [address] [place] [phone] * (ABNORMAL) CBC auto differential (06/05/2024 10:35 AM EDT) Only the most recent of2 resultswithin the time period is included. Pathologist [facility] White Blood Count 12.9(H) 4.8 - 10.8 X10*3/uL [facility] Red Blood Count 4.51 4.20 - 5.50 X10*6/uL [facility] Hemoglobin 12.7 12.0 - 16.0 g/dl [facility] Hematocrit 37.7 37.0 - 47.0 % [facility] Mean Corpuscular Volume 83.6 80.0 - 98.0 fL [facility] Mean Corpuscular Hemoglobin 28.2 27.0 - 33.0 pg [facility] Mean Corpuscular HGB Conc 33.7 31.0 - 35.0 g/dl [facility] Red Cell Distribution Width 12.7 11.0 - 16.0 % [facility] Platelet Count 275 160 - 400 X10*3/uL [facility] Mean Platelet Volume 11.1 9.4 - 12.3 fL [facility] Neutrophils Percent Auto 87.2(H) 45 - 73 % [facility] Imm Gran Pct Auto 0.4 0.0 - 0.4 % [facility] Lymphocytes Percent Auto 7.6(L) 20 - 40 % [facility] Monocytes Percent Auto 3.5 2 - 11 % [facility] Eosinophils Percent Auto 1.1 0 - 4 % [facility] Basophils Percent Auto 0.2 0 - 2 % [facility] NRBC Pct Auto 0.0 0.0 - 0.2 /100WBC [facility] Neutrophils Absolute Auto 11.3(H) 2.0 - 8.3 x10*3/uL [facility] Imm Gran Abs Auto 0.05(H) 0.00 - 0.03 X10*3/uL [facility] Lymphocytes Absolute Auto 1.0(L) 1.2 - 4.9 X10*3/uL [facility] Monocytes Absolute Auto 0.5 0.1 - 1.2 X10*3/uL [facility] Eosinophils Absolute Auto 0.1 0.0 - 0.4 X10*3/uL [facility] Basophils Absolute Auto 0.0 0.0 - 0.2 X10*3/uL [facility] NRBC Abs Auto 0.000 0.0 - 0.012 X10*3/uL [facility] 06/05/2024 10:3 5 AM EDT 06/05/2024 10:44 AM EDT us Generic External Data Provider LAB BLOOD ORDERAB LES Final Result [facility] [address] [place], [place] [phone] * (ABNORMAL) Comprehensive Metabolic Panel (06/05/2024 10:35 AM EDT) Only the most recent of2 resultswithin the time period is included. Sodium 138 135 - 145 mmol/L [facility] Potassium 3.6 3.3 - 5.1 mmol/L [facility] Chloride 109(H) 96 - 108 mmol/L [facility] Carbon Dioxide 23 22 - 29 mmol/L [facility] Anion Gap 10(L) 12 - 20 [facility] Urea Nitrogen (BUN) 11 9 - 16 mg/dL [facility] Creatinine, Serum 0.68 0.5 - 1.4 mg/dL [facility] Creatinine Clr Calc Pharmacy 109.1 [facility] Comment:Provided height and weight: 162.56 cm,53.3 kg.eGFR (calculated from the MDRD study equation) and eCrCl(calculated from the Cockcroft-Gault equation) are based ondifferent parameters and may not yield comparable results.If eCrCl result is absurd, please check patient'sheight/weight. Estimated Glomerular Filt Rate >60 [facility] Comment:Chronic Kidney Disea se: Estimated GFR < 60 mL/min/1.17r6Hukblx Kidney Disease: Estimated GFR < 15 mL/min/1.73m2 Glucose 101 60 - 115 mg/dL [facility] Calcium 9.0 8.4 - 10.2 mg/dL [facility] Bilirubin, Total 0.3 0.0 - 1.0 mg/dL [facility] Aspartate Amino Transferase 16 5 - 31 U/L [facility] Alanine Aminotransferase 21 0 - 31 U/L [facility] Total Protein 7.4 6.5 - 8.0 g/dL [facility] Albumin Level 4.3 3.5 - 5.0 g/dL [facility] Alkaline Phosphatase 69 39 - 117 U/L [facility] 06/05/2024 10:3 5 AM EDT 06/05/2024 10:44 AM EDT us Generic External Data Provider LAB BLOOD ORDERAB LES Final Result [facility] [address] [place] [phone] * Gross and Microscopic Level 3 (05/27/2024 8:16 AM EST) 05/27/2024 8:16 AM EST 05/27/2024 9:46 AM EST Narrative [facility] - 05/28/2024 11:04 AM EST ----- ------- Name: Ashanti Ontiveros ?Age/Sex: 23/F ? : 2000 Unit#: [id number] ?? Attend Dr: Viv Puga MD ?Re05/27/24 ?Status: DEP SDC ? Location: HO.SSS ?Disch: ? ----- ------- SPEC : [id number] ? RECD: 05/27/24-945 ? STATUS: ??SOUT ? REQ NUM: [id number] ? MELVIN: 05/27/24 ? SUBM DR: Viv Puga MD ? ENTERED: ??05/27/24 ?SP TYPE: Surgical ? OTHR DR: [facility] ? ORDERED: ??Gross Micro L3 ? Diagnosis ?? Soft tissue, right palmar hand mass, excision: ??Cavernous hemangioma. ?Clinical History Right palmar hand mass ?Microscopic Description Microscopic sections reviewed. ? Material Received ?? Right palmar hand mass ? Gross Description Received in formalin labeled ?right palmar hand mass? is an unoriented ellipse of skin measuring 1.2 x 0.9 cm which has been excised to a depth of 0.7 cm. ??The skin surface is zamora-white and rough. ??Centrally there is a red-brown, raised lesion measuring 0.7 x 0.6 cm which is surrounded by a border of grossly uninvolved skin ranging from 0.1-0.2 cm in width. The underside is composed of a bulging, smooth red-brown nodule. ??The margins of excision are inked blue. ??The longitudinal poles are wrapped in lens paper and entirely submitted for microscopic examination in cassette A1, 2 pieces. ??The remainder of the specimen is serially sectioned across the short axis revealing a red-brown, hemorrhagic cut surface. ??Remainder of the specimen is submitted for microscopic examination, 4 pieces in cassette A2. ??([facility]) Copies To: ?? [facility] ?? [address] ?? [place] [address] ? Viv Puga MD ?? [facility] ?? [address] [facility] [address] ?? [place] [address] ?? [phone] ----- ------- Signed (signature on file) Kristin Kelley MD 05/28/241103 ? ----- ------- ? END OF REPORT ? us Generic External Data Provider LAB CYTOLOGY ORDE RABLES Final Result Performing Organization Address [facility] Co de Phone Number [facility] [address] [place] [phone] * TSH W/Reflex to FT4 (05/03/2024 4:02 PM EST) TSH reflex Free T4 0.38 0.32 - 4.0 uIU/mL [facility] Blood Venous blood specimen / Unknown 05/03/2024 4:02 PM EST 05/03/2024 5:50 PM EST us Carol Almaraz YEAST MAKER LAB BLOOD ORDERABLES Final Resul t Performing Organization Address City/[facility]/ZIP Co de Phone Number [facility] [address] [place] [phone] * Iron And Total Iron Binding Capacity (05/03/2024 4:02 PM EST) Iron 53 30 - 160 mcg/dL [facility] Total Iron Binding Capacity 307 228 - 428 mcg/dL [facility] Percent Iron Saturation 17 15 - 50 % [facility] Unsaturated Iron Binding 254 ug/dL [facility] Blood Venous blood specimen / Unknown 05/03/2024 4:02 PM EST 05/03/2024 5:50 PM EST us Carol Almaraz YEAST MAKER LAB BLOOD ORDERABLES Final Resul t Performing Organization Address [facility] de Phone Number [facility] [address] [place] [phone] * Hemoglobin A1c (05/03/2024 4:02 PM EST) Hemoglobin A1c 4.9 <6.0 % [facility] Comment:Hemoglobin A1C Refer ence Range Adults: 4.8 - 6.0 % Non diabetic: < 6.0 % Goal: < 7.0 %Additional Action Suggested: > 8.0 %Note: Hemoglobin A1c results are invalid for patients with abnormal amounts of HbF. Blood transfusions may impact the HbA1c concentration in the patient sample. Estimated Average Glucose 94 mg/dL [facility] Comment:eAG = Estimated ave rage glucose which is %A1C expressed asaverage glucose, using the formula of the U3S-AscscvqMxdcddu Glucose study (ADAG), Diabetes Care, Vol.31,#8,2007 Blood Venous blood specimen / Unknown 05/03/2024 4:02 PM EST 05/03/2024 5:50 PM EST us Carol Almaraz YEAST MAKER LAB BLOOD ORDERABLES Final Resul t Performing Organization Address [facility] Co de Phone Number [facility] [address] [place] [phone] * (ABNORMAL) Bacterial Vaginosis (04/03/2024 12:00 AM EST) TRICHOMONAS VAGINALIS DETECTION BY PCR NOT DETECTED Not Detect [facility] BACTERIAL VAGINOSIS DETECTION BY PCR POSITIVE(A) Negative [facility] Comment:The BV organism targ ets [...] GROUP DETECTION BY PCR DETECTED(A) Not Detect [facility] Madison glab krusei PCR DETECTED(A) Not Detect [facility] 04/03/2024 04/03/2024 us Generic External Data Provider LAB MICROBIOLOGY - GENERAL ORDERABLES Final Result [facility] [address] [place] [phone] * Chlamydia/N. Gonorrhoeae RNA, TMA, Urogenitial (04/03/2024 12:00 AM EST) CT PCR NOT DETECTED Not Detect. [facility] Comment:A not detected test result [...] psychologicalconsequences. NG PCR NOT DETECTED Not Detect. [facility] Comment:A not detected test result [...] medical, social or psychologicalconsequences. 04/03/2024 04/03/2024 Narrative [facility] - 04/04/2024 3:11 AM EST Vaginal Generic External Data Provider LAB MICROBIOLOGY - GENERAL ORDERABLES Final Result Performing Organization Address [facility]/ZIP Co de Phone Number [facility] [address] [place] [phone] * Hepatitis C Ab (03/01/2024 1:40 PM EST) Hepatitis C Antibody Nonreactive Nonreactive [facility] Comment:Antibodies to HCV no t detected; does not exclude early acuteHCV infection. 03/01/2024 1:40 PM EST 03/01/2024 3:54 PM EST Generic External Data Provider LAB BLOOD ORDERAB LES Final Result Performing Organization Address [facility] Co de Phone Number [facility] [address] [place] [phone] * HIV-1/2 Antigen and Antibodies, Fourth Generation, with Reflexes (03/01/2024 1:40 PM EST) HIV AB/AG Nonreactive Nonreactive [facility] Comment:HIV-1 p24 Ag and/or HIV-1/HIV-2 Ab not detected.A test result that is nonreactive does not exclude thepossibility of exposure to or infection with HIV-1 and/orHIV-2. Nonreactive results in this assay for individualswith prior exposure to HIV-1 and/or HIV-2 may be due toantigen and antibody levels that are below the limit ofdetection of this assay.The [employer] HIV Ag/Ab Combo assay result andsupplemental assay results should be interpreted inconjunction with the patient's clinical presentation,history and other laboratory results. If the results areinconsistent with clinical evidence, additional testing issuggested to confirm the result. 03/01/2024 1:40 PM EST 03/01/2024 3:54 PM EST us Generic External Data Provider LAB BLOOD ORDERAB LES Final Result [facility] [address] [place] [phone] * Pap Smear (07/21/2023 10:28 AM EDT) 07/21/2023 10:2 8 AM EDT 07/25/2023 7:30 AM EDT Narrative [facility] - 08/12/2023 5:55 PM EDT ----- ------- Name: Ashanti Ontiveros ?Age/Sex: 22/F ? : 2000 Unit#: [id number] ?? Attend Dr: AraJudith CECY ?Re07/21/23 ?Status: DEP REF ? Location: HO.LNP ?Disch: ? ----- ------- SPEC : [id number] ? RECD: 07/25/23-729 ? STATUS: ??SOUT ? REQ NUM: [id number] ? MELVIN: 07/21/23-1028 ? SUBM DR: AraJudith CECY ? ENTERED: ??07/25/23-830 ?SP TYPE: Pap Smr ?OTHR DR: Susie Nascimento [employer] ? ORDERED: ??Pap Smear ? Interpretation ?? Satisfactory for evaluation. ?? Negative for intraepithelial lesion or malignancy. ?Clinical Information LMP: 06/30/23 Previous PAP test: No pap hx ? Material Received ?? ThinPrep-Cervical Copies To: ?? AraJudith CECY ?? [address] [facility] ?? [place] [address] ?? [phone] ?? [place] ?? [address] [facility] ?? [place] [address] ?? [phone] ----- ------- Signed (signature on file) Priti Yonatan Wheeler 08/12/231754 ? ----- ------- ? END OF REPORT ? Generic External Data Provider LAB CYTOLOGY MORTEZA ROBERTS Final Result [facility] [address] [place] [address] [phone] from Last 3 Months or Most Recently Relevant to Health Maintenance Insurance [facility] C3 [facility] MEDICAID STAND [facility]ULT [facility] STAND [facility]ULT Care Teams Inspector Returned Materials Relationship Specialty Start Date End Date Carol Almaraz NP [address] [place] [address] PCP - General Family Medicine 08/04/23
--- OUTSIDE RECORDS SUMMARY | 2024-06-05 18:45 | XMS_ITS | Clinical Summary ---
Author Organization [facility] ity Address [address] [place] [address] Care Team Providers Care Department Store General Manager Name Role Phone Unavailable Primary Care Provider [...]
--- OUTSIDE RECORDS SUMMARY | 2024-06-05 18:45 | XMS_ITS | Encounter Summary ---
Author Organization [employer] Address [address] [facility] 7t [place] [address] Care Team Providers Care Pen Ruler Operator Name Role Phone Carol Almaraz FOOD EDITOR Primary Care Provider [phone] Reason for Visit * Reason Comments Care Coordination CM/CHW appt Encounter Details Date Type Department Care Team (Latest Contact Info) Description 05/20/2024 Patient Outreach [facility] [address] [place] [address] Carol Almaraz NP [address] [place] [address] Care Coordination (CM/CHW appt) Social History Tobacco [...] outbound call to patient introducing herself from [facility] CM Department, in regard to offering services. Patient's name and was confirmed. Patient agrees to participate in program. Appt. for initial assessment scheduled for 06/06/24 @ 10AM tele with CM Huma Miranda RN. CHW reinforced direct contact information or CM for any additional questions or concerns and extended clinic hours on Mondays and Wednesdays, and Walk-In Urgent Care Located in [facility] of [facility]. Patient provided with after-hours line for [facility], ,which offer nighttime triage service and option to transfer to land commissioner provider if needed. Patient v erbalizes understanding, and able to repeat back to casualty underwriter. documented in this encounter Plan of Treatment Upcoming Encounters Date Type Department Care Team (Late st Contact Info) Description 06/14/2024 4:00 PM EDT Office Visit [facility] [address] [place] [address] Carol Almaraz NP [address] [place], [place] [phone] documented as of this encounter Visit Diagnoses Not on filedocumented in this encounter Additional Health Concerns Assessment Noted Time PHQ-9 Depression Total Score: 1 05/10/20 24 11:39 AM EDT documented as of this encounter Care Teams Pen Ruler Operator Relationship Specialty Start Date End Date Carol Almaraz NP [address] [place] [phone] PCP - General Family Medicine 08/04/23 documented as of this encounter
--- OUTSIDE RECORDS SUMMARY | 2024-06-05 18:45 | XMS_ITS | Encounter Summary ---
Author Organization [employer] Address [address] [facility] 7t [place] [address] Care Team Providers Care Director Of Flight Operations Name Role Phone Carol Almaraz KULDIP Primary Care Provider [phone] Reason for Visit * Reason Onset Date Comments Chart Prep 06/04/2024 Encounter Details Date Type Department Care Team ([facility] st Contact Info) Description 06/04/2024 Telephone [facility] [address] [place] [address] Teresita Kang MA Chart Prep Social History Tobacco Use Types Packs/Day Years [...] the past 12 months, has t he [employer], gas, oil or water company threatened to [...] encounter Miscellaneous Notes * Telephone Encounter - Teresita Kang MA - 06/04/2024 10:44 AM EDT Chart Prep Labs: done Images: not applicable Vaccines due: Covid, Tdap, PCV20, Flu Referrals: none Screenings: none Overdue care gaps: Sbirt, SDOH, PHQ-9 documented in this encounter Plan of Treatment Upcoming Encounters Date Type Department Care Team (Late st Contact Info) Description 06/14/2024 4:00 PM EDT Office Visit [facility] [address] [place] [address] Carol Almaraz NP [address] [place] [address] documented as of this encounter Visit Diagnoses Not on filedocumented in this encounter Additional Health Concerns Assessment Noted Time PHQ-9 Depression Total Score: 1 08/04/19 24 11:39 AM EDT documented as of this encounter Care Teams Director Of Flight Operations Relationship Specialty Start Date End Date Carol Almaraz NP [address] [place] [address] PCP - General Family Medicine 08/04/23 documented as of this encounter
--- OUTSIDE RECORDS SUMMARY | 2024-06-05 18:45 | XMS_ITS | Encounter Summary ---
Author Organization [employer] Address [address] [facility] 7t [place] [address] Care Team Providers Care Food Service Tray Attendant Name Role Phone Carol Almaraz KULDIP Primary Care Provider [phone] Encounter Details Date Type Department Care Team (Late st Contact Info) Description 05/27/2024 Orders Only GENERIC EXTERNAL DATA DEPARTMENT [...] Description 06/14/2024 4:00 PM EDT Office Visit [facility] [address] [place], [place] [phone] Carol Almaraz, KULDIP [address] [place] [address] documented as of this encounter Procedures Procedure Name Priority Date/Time Associated Diagnosis Comments GROSS AND MICROSCOPIC LEVEL 3 Routine 05/27/2024 8:16 AM EST documented in this encounter Results * Gross and Microscopic Level 3 (05/27/2024 8:16 AM EST) 05/27/2024 8:16 AM EST 05/27/2024 9:46 AM EST [facility]S - 05/28/2024 11:04 AM EST ----- ------- Name: Ashanti Ontiveros ?Age/Sex: 23/F ? : 2000 Unit#: [id number] ?? Attend Dr: Viv Puga MD ?Re05/27/24 ?[place] [facility] [place] ?Disch: ? ----- ------- SPEC : [id number] ? RECD: 05/27/24 ? STATUS: ??SOUT ? REQ NUM: [id number] ? MELVIN: 05/27/24 ? SUBM DR: Viv Puga MD ? ENTERED: ??05/27/24 ?SP TYPE: Surgical ? OTHR DR: [facility] ? ORDERED: ??Gross Micro L3 ? [...] microscopic examination, 4 pieces in cassette A2. ??([facility]) Copies To: ?? [facility] ?? [address] ?? [place] [address] ? Viv Puga MD ?? [facility] ?? [address] [place] [address] [address] ?? [place] [address] ?? [phone] ----- ------- Signed (signature on file) Kristin Kelley MD 05/28/244 ? ----- ------- ? END OF REPORT ? us Generic External Data Provider LAB CYTOLOGY MORTEZA ROBERTS Final Result [facility] [address] [place] [address] [phone] documented in this encounter Visit Diagnoses Not on filedocumented in this encounter Additional Health Concerns Assessment Noted Time PHQ-9 Depression Total Score: 1 08/04/19 24 11:39 AM EDT documented as of this encounter Care Teams Food Service Tray Attendant Relationship Specialty Start Date End Date Carol Almaraz NP [address] [place] [phone] PCP - General Family Medicine 08/04/23 documented as of this encounter
[2024-06-05] MEDS: 0.9 % Sodium Chloride 1,000 ML 999 ML IV (18:54)
[2024-06-05 19:00] VITALS: BP 100/53; PULSE 80; RESP 18; TEMP 37.3; O2SAT 98
[2024-06-05] MEDS: Ketorolac Tromethamine 15 MG/ML VIAL IVPUSH (19:05)
[2024-06-05] MEDS: ondansetron HCL 4 MG/2 ML VIAL IVPUSH (19:05)
[2024-06-05] MEDS: Loperamide HCl 2 MG CAPSULE 4 MG PO (19:05)
[2024-06-05 21:09] VITALS: BP 100/53; PULSE 80; RESP 18; TEMP 37.3; O2SAT 98
== END 2024-06-05 21:10 | disposition home or self-care (01) ==
PROVIDERS: Emergency Provider Emergency Medicine Emergency Medical Services
DX: B34.9 Viral infection, unspecified (principal); R11.2 Nausea with vomiting, unspecified; R51.9 Headache, unspecified; R19.7 Diarrhea, unspecified; R10.13 Epigastric pain; Z03.818 Encounter for observation for suspected exposure to other biological agents ruled out; Z79.899 Other long term (current) drug therapy
CPT/HCPCS: 0241U; 80053; 85025; 87493; 87507; 96361; 96374; 96375; 99284; 99285; J1885; J2405

== ENCOUNTER 2024-06-12 11:07 | Outpatient (AMB) | payer MEDICAID, SELFPAY ==
[2024-06-12 11:10] VITALS: BMI 20.1
--- NOTE | 2024-06-12 11:10 | A.OFFVIS_ITS ---
Vital Signs 06/12/24 11:10 Height 5 ft 4 in Weight 117 lb BMI 20.1 Intake Visit Reasons: PO RT palmar mass exc 05/27/24 AR Intake Note: Ashanti is a 23 year old 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 female who presents today for a post operative visit s/p right palmar hand mass excisional biopsy DOS: 05/27/24 w/ Dr Puga. Sutures removed and steri strips applied. Allergies No Known Allergies [No Known Allergies*] Allergy (Verified 06/12/24 11:16) HPI HPI PO RT palmar mass exc 05/27/24 AR: Details: Ashanti is a 23 year old 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 English speaking woman who returns S/P right palmar mass excision, DOS: 05/27/24 She says she is doing well overall. 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 [facility] Medical History (Updated 06/12/24 @ 11:17 by Adrian Valdovinos) Personal history of asthma COVID-19 History of depression Personal history of anxiety disorder Family history of asthma and other chronic lower respiratory diseases Surgical History Hx of tubal ligation History of retained foreign body fully removed (12/23/21) Family History Maternal Grandmother Hx of breast cancer Diabetes mellitus Maternal Aunt No problems noted. 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 Sutures removed and Steri-Strips applied She can make a fist and extend all her digits Sensation is intact Cap refill is brisk Pathology report: 05/27/24 Diagnosis Soft tissue, right palmar hand mass, excision: Cavernous hemangioma Psych Appearance: grossly normal Affect: normal affect Attitude: cooperative Assessment & Plan Assessment & Plan (1) Personal history of anxiety disorder: Code(s): Z86.59 - Personal history of other mental and behavioral disorders Category: Medical (2) Asthma: Code(s): J45.909 - Unspecified asthma, uncomplicated Category: Medical (3) Cavernous hemangioma: Comment: Right palm Code(s): D18.00 - Hemangioma unspecified site Category: Medical Plan Assessment & Plan: 1. 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 She can follow up prn Scribed for Viv Puga MD by Adrian Valdovinos medical transcription supervisor, on 06/12/24 at 11:30 AM, EST. Coding Level of Care Code Global (83298) Diagnoses Personal history of anxiety disorder Z86.59 Asthma J45.909 Cavernous hemangioma D18.00
--- OUTSIDE RECORDS SUMMARY | 2024-06-12 13:32 | XMS_ITS | Encounter Summary ---
Author Organization [employer] Address [address] [facility] 7t [place] [address] Care Team Providers Care Alternative Financing Specialist Name Role Phone Rufina Carol KULDIP Primary Care Provider [phone] Huma Miranda RN Unavailable [phone] Encounter Details Date Type Department Care Team ([facility] st Contact Info) Description 06/07/2024 Population Health Risk Score [facility] (C3) Department [address] [phone] Provider, Population Health Generic Social History Tobacco Use Types Packs/Day Years [...] [facility] [address] [place] [address] Carol Almaraz NP [address] [place] [address] documented as of this encounter Visit Diagnoses Not on filedocumented in this encounter Additional Health Concerns Assessment Noted Time PHQ-9 Depression Total Score: 1 08/04/19 24 11:39 AM EDT documented as of this encounter Care Teams Alternative Financing Specialist Relationship Specialty Start Date End Date Carol Almaraz NP [address] [place] [address] PCP - General Family Medicine 08/04/23 Huma Miranda RN [address] [place] [address] Recreation Therapy TeacherCrystal Calibrator 06/06/24 documented as of this encounter
--- OUTSIDE RECORDS SUMMARY | 2024-06-12 13:32 | XMS_ITS | Encounter Summary ---
Author Organization [employer] Address [address] [facility] 7t [place] [address] Care Team Providers Care Industrial Relations Counselor Name Role Phone Carol Almaraz KULDIP Primary Care Provider [phone] Encounter Details Date Type Department Care Team [...] Description 06/14/2024 4:00 PM EDT Office Visit [facility] [address] [place] [address] Carol Almaraz NP [address] [place], [place] [phone] documented as of this encounter Procedures Procedure [...] AM EDT) Campylobacter Not Detected Not Detect. [facility] Plesiomonas shigelloides Not Detected Not Detect. [facility] Salmonella Not Detected Not Detect. [facility] Vibrio Not Detected Not Detect. [facility] Vibrio cholerae Not Detected Not Detect. [facility] YERSINIA ENTEROCOLITICA Not Detected Not Detect. [facility] Enteroaggregative E. coli (EAEC) Not Detected Not Detect. [facility] Enteropathogenic E. coli (EPEC) Not Detected Not Detect. [facility] Enterotoxigenic E. coli (ETEC) lt/st Not Detected Not Detect. [facility] Shiga-like toxin-producing E. coli (STEC) stx1/stx2 Not Detected Not Detect. [facility] E coli O157 Not applicable Not Detect. [facility] Comment:E. coli containing t he O157 antigen are a subset ofShiga-like toxin- producing E. coli (STEC). Shigella/Enteroinvasive E. coli (EIEC) Not Detected Not Detect. [facility] Cryptosporidium Not Detected Not Detect. [facility] Cyclospora cayetanensis Not Detected Not Detect. [facility] Entamoeba histolytica Not Detected Not Detect. [facility] Giardia lamblia Not Detected Not Detect. [facility] Adenovirus F 40/41 Not Detected Not Detect. [facility] Astrovirus Not Detected Not Detect. [facility] Norovirus GI/GII Not Detected Not Detect. [facility] Rotavirus A Not Detected Not Detect. [facility] Sapovirus Not Detected Not Detect. [facility] Comment: All results must be correlated [...] assay is performed by Multiplexed PCR, utilizing [employer]. 06/05/2024 10:3 5 AM EDT 06/05/2024 10:44 AM EDT Generic External Data Provider LAB MICROBIOLOGY - GENERAL ORDERABLES Final Result Performing Organization Address [facility] Co de Phone Number [facility] [address] [place] [phone] * CDiff Gene PCR (06/05/2024 10:35 AM EDT) CDiff Gene PCR NEGATIVE Negative [facility] Comment:If C. difficile stro ngly suspected despite one negativetest, a second test may be sent vs. empiric treatment forC. difficile infection. 06/05/2024 10:3 5 AM EDT 06/05/2024 10:44 AM EDT Generic External Data Provider LAB BODY FLUIDS A ND STOOLS ORDERABLES Final Result Performing Organization Address [facility] Co de Phone Number [facility] [address] [place] [address] [phone] * SARS-CoV-2 RNA, Influenza A/B, and RSV RNA, Ql NAAT (06/05/2024 10:35 AM EDT) Influenza A PCR NEGATIVE Negative [facility] Influenza B PCR NEGATIVE Negative [facility] Resp Syncy Virus RNA Qual PCR NEGATIVE Negative [facility] SARS COV2 PCR NEGATIVE Negative [facility] Comment:All test results mus t be [...] use by authorized laboratories.Testing performed on the [employer] GeneXpert utilizingreal-time RT-PCR.All SARS CoV2 and positive influenza A/B results arereported to [facility]. 06/05/2024 10:3 5 AM EDT 06/05/2024 10:44 AM EDT us Generic External Data Provider LAB MICROBIOLOGY - GENERAL ORDERABLES Final Result [facility] [address] [place] [address] [phone] * (ABNORMAL) Comprehensive Metabolic Panel (06/05/2024 10:35 AM EDT) Sodium 138 135 - 145 mmol/L [facility] Potassium 3.6 3.3 - 5.1 mmol/L [facility] Chloride 109(H) 96 - 108 mmol/L [facility] Carbon Dioxide 23 22 - 29 mmol/L [facility] Anion Gap 10(L) 12 - 20 [facility] Urea Nitrogen (BUN) 11 9 - 16 mg/dL [facility] Creatinine, Serum 0.68 0.5 - 1.4 mg/dL [facility] Creatinine Clr Calc Pharmacy 109.1 [facility] Comment:Provided height and weight: 162.56 cm,53.3 kg.eGFR (calculated from the MDRD study equation) and eCrCl(calculated from the Cockcroft-Gault equation) are based ondifferent parameters and may not yield comparable results.If eCrCl result is absurd, please check patient'sheight/weight. Estimated Glomerular Filt Rate >60 [facility] Comment:Chronic Kidney Disea se: Estimated GFR < 60 mL/min/1.18a7Sosoti Kidney Disease: Estimated GFR < 15 mL/min/1.73m2 Glucose 101 60 - 115 mg/dL [facility] Calcium 9.0 8.4 - 10.2 mg/dL [facility] Bilirubin, Total 0.3 0.0 - 1.0 mg/dL [facility] Aspartate Amino Transferase 16 5 - 31 U/L [facility] Alanine Aminotransferase 21 0 - 31 U/L [facility] Total Protein 7.4 6.5 - 8.0 g/dL [facility] Albumin Level 4.3 3.5 - 5.0 g/dL [facility] Alkaline Phosphatase 69 39 - 117 U/L [facility] 06/05/2024 10:3 5 AM EDT 06/05/2024 10:44 AM EDT us Generic External Data Provider LAB BLOOD ORDERAB LES Final Result [facility] [address] [place] [address] [phone] * (ABNORMAL) CBC auto differential (06/05/2024 10:35 AM EDT) White Blood Count 12.9(H) 4.8 - 10.8 X10*3/uL [facility] Red Blood Count 4.51 4.20 - 5.50 X10*6/uL [facility] Hemoglobin 12.7 12.0 - 16.0 g/dl [facility] Hematocrit 37.7 37.0 - 47.0 % [facility] Mean Corpuscular Volume 83.6 80.0 - 98.0 fL [facility] Mean Corpuscular Hemoglobin 28.2 27.0 - 33.0 pg [facility] Mean Corpuscular HGB Conc 33.7 31.0 - 35.0 g/dl [facility] Red Cell Distribution Width 12.7 11.0 - 16.0 % [facility] Platelet Count 275 160 - 400 X10*3/uL [facility] Mean Platelet Volume 11.1 9.4 - 12.3 fL [facility] Neutrophils Percent Auto 87.2(H) 45 - 73 % [facility] Imm Gran Pct Auto 0.4 0.0 - 0.4 % [facility] Lymphocytes Percent Auto 7.6(L) 20 - 40 % [facility] Monocytes Percent Auto 3.5 2 - 11 % [facility] Eosinophils Percent Auto 1.1 0 - 4 % [facility] Basophils Percent Auto 0.2 0 - 2 % [facility] NRBC Pct Auto 0.0 0.0 - 0.2 /100WBC [facility] Neutrophils Absolute Auto 11.3(H) 2.0 - 8.3 x10*3/uL [facility] Imm Gran Abs Auto 0.05(H) 0.00 - 0.03 X10*3/uL [facility] Lymphocytes Absolute Auto 1.0(L) 1.2 - 4.9 X10*3/uL [facility] Monocytes Absolute Auto 0.5 0.1 - 1.2 X10*3/uL [facility] Eosinophils Absolute Auto 0.1 0.0 - 0.4 X10*3/uL [facility] Basophils Absolute Auto 0.0 0.0 - 0.2 X10*3/uL [facility] NRBC Abs Auto 0.000 0.0 - 0.012 X10*3/uL [facility] 06/05/2024 10:3 5 AM EDT 06/05/2024 10:44 AM EDT us Generic External Data Provider LAB BLOOD ORDERAB LES Final Result Performing Organization Address City/State/[facility] Co de Phone Number [facility] [address] [place] [address] [phone] documented in this encounter Visit Diagnoses Not on filedocumented in this encounter Additional Health Concerns Assessment Noted Time PHQ-9 Depression Total Score: 1 08/04/19 24 11:39 AM EDT documented as of this encounter Care Teams Industrial Relations Counselor Relationship Specialty Start Date End Date Carol Almaraz NP [address] [place] [address] PCP - General Family Medicine 08/04/23 documented as of this encounter
--- OUTSIDE RECORDS SUMMARY | 2024-06-12 13:32 | XMS_ITS | Encounter Summary ---
Author Organization [employer] Address [address] [facility] 7t [place] [address] Care Team Providers Care Corporate Recycling Manager Name Role Phone Carol Almaraz SUPPORT MANAGER Primary Care Provider [phone] Reason for Visit * Reason Comments Care Coordination CM/CHW appt Encounter Details Date Type Department Care Team (Latest Contact Info) Description 05/20/2024 Patient Outreach [facility] [address] [place] [address] Carol Almaraz NP [address] [place] [address] Care Coordination (CM/CHW appt) Social History Tobacco [...] outbound call to patient introducing herself from [facility] CM Department, in regard to offering services. Patient's name and was confirmed. Patient agrees to participate in program. Appt. for initial assessment scheduled for 06/06/24 @ 10AM tele with CM Huma Miranda RN. CHW reinforced direct contact information or CM for any additional questions or concerns and extended clinic hours on Mondays and Wednesdays, and Walk-In Urgent Care Located in [facility] of [facility]. Patient provided with after-hours line for [facility], ,which offer nighttime triage service and option to transfer to residential collections provider if needed. Patient v erbalizes understanding, and able to repeat back to commercial underwriter. documented in this encounter Plan of Treatment Upcoming Encounters Date Type Department Care Team (Late st Contact Info) Description 06/14/2024 4:00 PM EDT Office Visit [facility] MEDICINE [address] [place] [address] Carol Almaraz NP [address] [place], [place] [phone] documented as of this encounter Visit Diagnoses Not on filedocumented in this encounter Additional Health Concerns Assessment Noted Time PHQ-9 Depression Total Score: 1 05/10/20 24 11:39 AM EDT documented as of this encounter Care Teams Corporate Recycling Manager Relationship Specialty Start Date End Date Carol Almaraz NP [address] [place] [phone] PCP - General Family Medicine 08/04/23 documented as of this encounter
--- OUTSIDE RECORDS SUMMARY | 2024-06-12 13:32 | XMS_ITS | Clinical Summary ---
Author Organization [facility] Address [address] [place] [address] Care Team Providers Care Toll Gate Tender Name Role Phone Unavailable Primary Care Provider [...]
--- OUTSIDE RECORDS SUMMARY | 2024-06-12 13:32 | XMS_ITS | Encounter Summary ---
Author Organization [employer] Address [address] [facility] 7t [place] [address] Care Team Providers Care Science Professor Name Role Phone Carol Almaraz MACHINE HOOP MAKER Primary Care Provider [phone] Huma Miranda RN Unavailable [phone] Reason for Visit * Reason Onset Date Comments Care Management 06/06/2024 C3CM- initial as sessment/ enrollment. Encounter Details Date Type Department Care Team ([facility] Contact Info) Description 06/06/2024 Telephone [facility] MEDICINE [address] [place] [address] Carol Almaraz NP [address] [place] [address] Care Management (C3CM- initial assessment/ enrollment.) Social History Tobacco Use Types Packs/Day Years [...] Telephone Encounter - Huma Miranda RN - 06/06/2024 11:01 AM EDT CAYLA Miranda RN, provided notification to PCP Carol Almaraz NP of patient's enrollment into C3 Complex Care Program. CAYLA Miranda RN, completed care plan and sent to HIM to be scanned into the medical record. PCP notified and awaiting review from provider. CM plan: - assist patient with scheduling appt with Allergy - provide education on disease processes and management - provide patient with resources based on positive SDOH needs * Telephone Encounter - Huma Miranda RN - 06/06/2024 11:01 AM EDT CAYLA Miranda RN placed outbound call to patient for agreed upon time for initial assessment for enrollment into Adult Care Management Program. Patient's name, , and address were verified. Ashanti is a 23 year old female with Hx of asthma, seizure, dry eyes, seasonal allergic rhinitis dueto pollen, ganglion cyst, inattention, anxiety and depression, depressive disorder, PTSD, opposition al defiant disorder, anemia, and pre-syncope. Patient reports being followed by a therapist on a weekly basis. She states her visits are usually on Saturdays. Per patient, following her therapist foranxiety. She denies depression. Patient not established with psych. She denies taking any medications for anxiety. Patient seen in [facility] yesterday for eval of nausea, vomiting, diarrhea and headache. Patient Dx with viral syndrome. Patient provided home recs and advised to return to ED if symptomsworsen. Per patient, doing better today. She confirms picking up the medications that were prescribed to her and states she is taking them as directed. CM reviewed home recs with patient. Advised to stay on PEDRO diet, hydrate well and rest. Patient has a f/u visit scheduled 06/14/24. CM advised shecontinue to monitor and f/u sooner if symptoms persist or worsen prior to the scheduled visit. Alsoadvised patient of the walk in center and provided her with clinic hours. She verbalizes understanding and agrees. Per patient, being followed by [facility]. She states she has a follow up appointment scheduled next week. Per patient, was never contacted with an appointment to follow up with Allergy. CM will assist with appointment scheduling. Patient states she is established with dental and vision. Per patient, up to date with vision and eye exams. Patient reports being independent with ADLs. She states she is not currently taking any medications or supplements. She does report having an albuterol inhaler which she is only using as needed. Per patient, has hx of seizure disorder but statesthese were present in childhood. She denies any recent episodes or concerns. Patient is requesting assistance with looking for a 3 bedroom apartment. CM advised a message will be sent to AIDAN Velásquez and assist with resources. She agrees. Patient denies any immediate needs or concerns at this time. Care management program explained and contact information given. Patient verbalizes understanding, and able to repeat back to policy writer. A follow up call will be placed within 10 days, patient agrees with plan. documented in this encounter Plan of Treatment Upcoming Encounters Date Type Department Care Team (Late st Contact Info) Description 06/14/2024 4:00 PM EDT Office Visit [facility] MEDICINE [address] [place] [address] Carol Almaraz NP [address] [place] [address] documented as of this encounter Visit Diagnoses Not on filedocumented in this encounter Additional Health Concerns Assessment Noted Time PHQ-9 Depression Total Score: 1 08/04/19 24 11:39 AM EDT documented as of this encounter Care Teams Science Professor Relationship Specialty Start Date End Date Carol Almaraz NP [address] [place] [address] PCP - General Family Medicine 08/04/23 Huma Miranda, MOSES [address] [place] [phone] Jet Ski MechanicCareer Development Engineer 06/06/24 documented as of this encounter
--- OUTSIDE RECORDS SUMMARY | 2024-06-12 13:32 | XMS_ITS | Encounter Summary ---
Author Organization [email or web address] Address [address] [facility] 7t [place] [address] Care Team Providers Care Rn Surgical Pcu Name Role Phone Carol Almaraz KULDIP Primary Care Provider [phone] Reason for Visit * Reason Onset Date Comments Chart Prep 06/04/2024 Encounter Details Date Type Department Care Team ([facility] st Contact Info) Description 06/04/2024 Telephone [facility] MEDICINE [address] [place] [address] Teresita Kang MA Chart Prep Social History [...] the past 12 months, has t he [employer], gas, oil or water company threatened to [...] Description 06/14/2024 4:00 PM EDT Office Visit [facility] MEDICINE [address] [place] [address] Carol Almaraz NP [address] [place] [address] documented as of this encounter Visit Diagnoses Not on filedocumented in this encounter Additional Health Concerns Assessment Noted Time PHQ-9 Depression Total Score: 1 08/04/19 24 11:39 AM EDT documented as of this encounter Care Teams Rn Surgical Pcu Relationship Specialty Start Date End Date Carol Almaraz NP [address] [place] [address] PCP - General Family Medicine 08/04/23 documented as of this encounter
--- OUTSIDE RECORDS SUMMARY | 2024-06-12 13:32 | XMS_ITS | Encounter Summary ---
Author Organization [employer] Address [address] [facility] 7t [place] [address] Care Team Providers Care Educator Senior Clinical Name Role Phone Carol Almaraz KULDIP Primary Care Provider [phone] Encounter Details Date Type Department Care Team [...] Description 06/14/2024 4:00 PM EDT Office Visit [facility] MEDICINE [address] [place], [place] [phone] Carol Almaraz, KULDIP [address] [place] [address] documented as of this encounter Procedures Procedure Name Priority Date/Time Associated Diagnosis Comments GROSS AND MICROSCOPIC LEVEL 3 Routine 05/27/2024 8:16 AM EST documented in this encounter Results * Gross and Microscopic Level 3 (05/27/2024 8:16 AM EST) 05/27/2024 8:16 AM EST 05/27/2024 9:46 AM EST [facility] - 05/28/2024 11:04 AM EST ----- ------- Name: Ashanti Ontiveros ?Age/Sex: 23/F ? : 2000 Unit#: [id number] ?? Attend Dr: Viv Puga MD ?Re05/27/24 ?[place] [facility] [place] Location: HO.SSS ?Disch: ? ----- ------- SPEC : [id number] ? RECD: 05/27/24 ? STATUS: ??SOUT ? REQ NUM: [id number] ? MELVIN: 05/27/24 ? SUBM DR: Viv Puga MD ? ENTERED: ??05/27/24 ?SP TYPE: Surgical ? OTHR DR: [facility] ? ORDERED: ??Gross Micro L3 ? [...] microscopic examination, 4 pieces in cassette A2. ??([facility]) Copies To: ?? [facility] ?? [address] ?? [place] [address] ? Viv Puga MD ?? [facility] Orthopedic Surgeons ?? [address] [place] [address] [address] ?? [place] [address] ?? [phone] ----- ------- Signed (signature on file) Kristin Kelley MD 05/28/244 ? ----- ------- ? END OF REPORT ? us Generic External Data Provider LAB CYTOLOGY MORTEZA ROBERTS Final Result [facility] [address] [place] [address] [phone] documented in this encounter Visit Diagnoses Not on filedocumented in this encounter Additional Health Concerns Assessment Noted Time PHQ-9 Depression Total Score: 1 08/04/19 24 11:39 AM EDT documented as of this encounter Care Teams Educator Senior Clinical Relationship Specialty Start Date End Date Carol Almaraz NP [address] [place] [phone] PCP - General Family Medicine 08/04/23 documented as of this encounter
--- OUTSIDE RECORDS SUMMARY | 2024-06-12 13:32 | XMS_ITS | Encounter Summary ---
Author Organization [employer] Address [address] [facility] 7t [place] [address] Care Team Providers Care C Unix Developer Name Role Phone Carol Almaraz NP Primary Care Provider [phone] Reason for Visit * Reason Onset Date Comments Care Management 05/20/2024 [facility]- chart revi ew Encounter Details Date Type Department Care Team ([facility] st Contact Info) Description 05/20/2024 Telephone [facility] MEDICINE [address] [place] [address] Carol Almaraz NP [address] [place] [address] Care Management ([facility]- chart review) Social History Tobacco Use [...] and depression, anemia, and presyncope. Specialists include [facility], Orthopedic Surgery (ganglion cyst), and Allergy. ED visits within the last 12 months include [facility] ED on 05/19/24 for eval of chest [...] Description 06/14/2024 4:00 PM EDT Office Visit [facility] MEDICINE [address] [place] [address] Carol Almaraz NP [address] [place] [address] documented as of this encounter Visit Diagnoses Not on filedocumented in this encounter Additional Health Concerns Assessment Noted Time PHQ-9 Depression Total Score: 1 08/04/19 24 11:39 AM EDT documented as of this encounter Care Teams C Unix Developer Relationship Specialty Start Date End Date Carol Almaraz NP [address] [place] [phone] PCP - General Family Medicine 08/04/23 documented as of this encounter
--- OUTSIDE RECORDS SUMMARY | 2024-06-12 13:32 | XMS_ITS | Clinical Summary ---
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, no known seizure activity Depressive disorder 10/28/2016 Posttraumatic stress disorder 10/28/2016 Oppositional defiant disorder 10/28/2016 Encounters Date Type Department Care Team Description 06/07/2024 Population Health Risk Score [facility] (C[facility]) Department [facility] [address] [place] [phone] Provider, Population Health Generic 06/06/2024 Telephone [facility] MEDICINE [address] [place] [address] Carol Almaraz NP Care Management (C3CM- initial assessment/ enrollment.) 06/05/2024 Orders Only GENERIC EXTERNAL DATA DEPARTMENT Provider, Generic External Data 06/04/2024 Telephone [facility] MEDICINE [address] [place] [phone] Teresita Kang MA Chart Prep 05/27/2024 Orders Only GENERIC EXTERNAL DATA DEPARTMENT Provider, Generic External Data 05/20/2024 Patient Outreach [facility] [address] [place] [phone] Carol Almaraz NP Care Coordination (CM/CHW appt) 05/20/2024 Telephone [facility] MED[facility] [address] [place] [phone] Carol Almaraz NP Care Management (C3- chart review) 05/03/2024 3:15 PM EST Office Visit [facility] MEDICINE [address] [place] [phone] Carol Almaraz NP Anemia, unspecified type (Primary Dx); Seizure ([facility]); Pre-syncope; Anxiety and depression 04/03/2024 Orders Only GENERIC EXTERNAL DATA DEPARTMENT Provider, Generic External Data 03/28/[address] [address] Teresita Kang MA Chart Prep from Last [...] Description 06/14/2024 4:00 PM EDT Office Visit [facility] MEDICINE [address] [place] [address] Carol Almaraz NP [address] [place] [address] Health Maintenance Due Date Last Done Comments [...] AM EDT) CDiff Gene PCR NEGATIVE Negative [facility] Comment:If C. difficile stro ngly suspected despite one negativetest, a second test may be sent vs. empiric treatment forC. difficile infection. 06/05/2024 10:3 5 AM EDT 06/05/2024 10:44 AM EDT us Generic External Data Provider LAB BODY FLUIDS A ND STOOLS ORDERABLES Final Result [facility] [address] [place] [address] [phone] * Gastrointestinal panel (06/05/2024 10:35 AM EDT) Campylobacter Not Detected Not Detect. [facility] Plesiomonas shigelloides Not Detected Not Detect. [facility] Salmonella Not Detected Not Detect. [facility] Vibrio Not Detected Not Detect. [facility] Vibrio cholerae Not Detected Not Detect. [facility] YERSINIA ENTEROCOLITICA Not Detected Not Detect. [facility] Enteroaggregative E. coli (EAEC) Not Detected Not Detect. [facility] Enteropathogenic E. coli (EPEC) Not Detected Not Detect. [facility] Enterotoxigenic E. coli (ETEC) lt/st Not Detected Not Detect. [facility] Shiga-like toxin-producing E. coli (STEC) stx1/stx2 Not Detected Not Detect. [facility] E coli O157 Not applicable Not Detect. [facility] Comment:E. coli containing t he O157 antigen are a subset ofShiga-like toxin- producing E. coli (STEC). Shigella/Enteroinvasive E. coli (EIEC) Not Detected Not Detect. [facility] Cryptosporidium Not Detected Not Detect. [facility] Cyclospora cayetanensis Not Detected Not Detect. [facility] Entamoeba histolytica Not Detected Not Detect. [facility] Giardia lamblia Not Detected Not Detect. [facility] Adenovirus F 40/41 Not Detected Not Detect. [facility] Astrovirus Not Detected Not Detect. [facility] Norovirus GI/GII Not Detected Not Detect. [facility] Rotavirus A Not Detected Not Detect. [facility] Sapovirus Not Detected Not Detect. [facility] Comment: All results must be [...] assay is performed by Multiplexed PCR, utilizing [employer]. 06/05/2024 10:3 5 AM EDT 06/05/2024 10:44 AM EDT Generic External Data Provider LAB MICROBIOLOGY - GENERAL ORDERABLES Final Result Performing Organization Address [facility] Co de Phone Number [facility] [address] [place] [phone] * SARS-CoV-2 RNA, Influenza A/B, and RSV RNA, Ql NAAT (06/05/2024 10:35 AM EDT) Influenza A PCR NEGATIVE Negative [facility] Influenza B PCR NEGATIVE Negative [facility] Resp Syncy Virus RNA Qual PCR NEGATIVE Negative [facility] SARS COV2 PCR NEGATIVE Negative [facility] Comment:All test results mus t [...] use by authorized laboratories.Testing performed on the [employer] GeneXpert utilizingreal-time RT-PCR.All SARS CoV2 and positive influenza A/B results arereported to [facility]. 06/05/2024 10:3 5 AM EDT 06/05/2024 10:44 AM EDT Generic External Data Provider LAB MICROBIOLOGY - GENERAL ORDERABLES Final Result Performing Organization Address [facility] Co de Phone Number [facility] [address] [place] [phone] * (ABNORMAL) CBC auto differential (06/05/2024 10:35 AM EDT) Only the most recent of2 resultswithin the time period is included. White Blood Count 12.9(H) 4.8 - 10.8 X10*3/uL [facility] Red Blood Count 4.51 4.20 - 5.50 X10*6/uL [facility] Hemoglobin 12.7 12.0 - 16.0 g/dl [facility] Hematocrit 37.7 37.0 - 47.0 % [facility] Mean Corpuscular Volume 83.6 80.0 - 98.0 fL [facility] Mean Corpuscular Hemoglobin 28.2 27.0 - 33.0 pg [facility] Mean Corpuscular HGB Conc 33.7 31.0 - 35.0 g/dl [facility] Red Cell Distribution Width 12.7 11.0 - 16.0 % [facility] Platelet Count 275 160 - 400 X10*3/uL [facility] Mean Platelet Volume 11.1 9.4 - 12.3 fL [facility] Neutrophils Percent Auto 87.2(H) 45 - 73 % [facility] Imm Gran Pct Auto 0.4 0.0 - 0.4 % [facility] Lymphocytes Percent Auto 7.6(L) 20 - 40 % [facility] Monocytes Percent Auto 3.5 2 - 11 % [facility] Eosinophils Percent Auto 1.1 0 - 4 % [facility] Basophils Percent Auto 0.2 0 - 2 % [facility] NRBC Pct Auto 0.0 0.0 - 0.2 /100WBC [facility] Neutrophils Absolute Auto 11.3(H) 2.0 - 8.3 x10*3/uL [facility] Imm Gran Abs Auto 0.05(H) 0.00 - 0.03 X10*3/uL [facility] Lymphocytes Absolute Auto 1.0(L) 1.2 - 4.9 X10*3/uL [facility] Monocytes Absolute Auto 0.5 0.1 - 1.2 X10*3/uL [facility] Eosinophils Absolute Auto 0.1 0.0 - 0.4 X10*3/uL [facility] Basophils Absolute Auto 0.0 0.0 - 0.2 X10*3/uL [facility] NRBC Abs Auto 0.000 0.0 - 0.012 X10*3/uL [facility] 06/05/2024 10:3 5 AM EDT 06/05/2024 10:44 AM EDT us Generic External Data Provider LAB BLOOD ORDERAB LES Final Result [facility] [address] [place] [address] [phone] * (ABNORMAL) Comprehensive Metabolic Panel (06/05/2024 10:35 AM EDT) Only the most recent of2 resultswithin the time period is included. Sodium 138 135 - 145 mmol/L [facility] Potassium 3.6 3.3 - 5.1 mmol/L [facility] Chloride 109(H) 96 - 108 mmol/L [facility] Carbon Dioxide 23 22 - 29 mmol/L [facility] Anion Gap 10(L) 12 - 20 [facility] Urea Nitrogen (BUN) 11 9 - 16 mg/dL [facility] Creatinine, Serum 0.68 0.5 - 1.4 mg/dL [facility] Creatinine Clr Calc Pharmacy 109.1 [facility] Comment:Provided height and weight: 162.56 cm,53.3 kg.eGFR (calculated from the MDRD study equation) and eCrCl(calculated from the Cockcroft-Gault equation) are based ondifferent parameters and may not yield comparable results.If eCrCl result is absurd, please check patient'sheight/weight. Estimated Glomerular Filt Rate >60 [facility] Comment:Chronic Kidney Disea se: Estimated GFR < 60 mL/min/[id number] Kidney Disease: Estimated GFR < 15 mL/min/1.73m2 Glucose 101 60 - 115 mg/dL [facility] Calcium 9.0 8.4 - 10.2 mg/dL [facility] Bilirubin, Total 0.3 0.0 - 1.0 mg/dL [facility] Aspartate Amino Transferase 16 5 - 31 U/L [facility] Alanine Aminotransferase 21 0 - 31 U/L [facility] Total Protein 7.4 6.5 - 8.0 g/dL [facility] Albumin Level 4.3 3.5 - 5.0 g/dL [facility] Alkaline Phosphatase 69 39 - 117 U/L [facility] 06/05/2024 10:3 5 AM EDT 06/05/2024 10:44 AM EDT us Generic External Data Provider LAB BLOOD ORDERAB LES Final Result [facility] [address] [place] [address] [phone] * Gross and Microscopic Level 3 (05/27/2024 8:16 AM EST) 05/27/2024 8:16 AM EST 05/27/2024 9:46 AM EST Narrative [facility] - 05/28/2024 11:04 AM EST ----- ------- Name: Ashanti Ontiveros ?Age/Sex: 23/F ? : 2000 Unit#: [id number] ?? Attend Dr: Viv Puga MD ?Re05/27/24 ?Status: DEP SDC ? Location: HO.SSS ?Disch: ? ----- ------- SPEC : [id number] ? RECD: 05/27/24 ? STATUS: ??SOUT ? REQ NUM: [id number] ? MELVIN: 05/27/24 ? SUBM DR: Viv Puga MD ? ENTERED: ??05/27/24 ?SP TYPE: Surgical ? OTHR DR: [facility] ? ORDERED: ??Gross Micro L3 [...] microscopic examination, 4 pieces in cassette A2. ??([facility]) Copies To: ?? [facility] ?? [address] ?? [place] [address] ? Viv Puga MD ?? [facility] Orthopedic Surgeons ?? [address] [facility] [address] ?? [place] ?? [phone] ----- ------- Signed (signature on file) Kristin Kelley MD 05/28/24 1104 ? ----- ------- ? END OF REPORT ? us Generic External Data Provider LAB CYTOLOGY MORTEZA ROBERTS Final Result [facility] [address] [place] [address] [phone] * TSH W/Reflex to FT4 (05/03/2024 4:02 PM EST) Pathologist [facility] TSH reflex Free T4 0.38 0.32 - 4.0 uIU/mL [facility] Blood Venous blood specimen / Unknown 05/03/2024 4:02 PM EST 05/03/2024 5:50 PM EST Carol Almaraz WELDER EXPLOSION LAB BLOOD ORDERABLES Final Resul t Performing Organization Address [facility] Phone Number [facility] [address] [place] [phone] * Iron And Total Iron Binding Capacity (05/03/2024 4:02 PM EST) Pathologist [facility] Iron 53 30 - 160 mcg/dL [facility] Total Iron Binding Capacity 307 228 - 428 mcg/dL [facility] Percent Iron Saturation 17 15 - 50 % [facility] Unsaturated Iron Binding 254 ug/dL [facility] Blood Venous blood specimen / Unknown 05/03/2024 4:02 PM EST 05/03/2024 5:50 PM EST Carol Almaraz WELDER EXPLOSION LAB BLOOD ORDERABLES Final Resul t Performing Organization Address [facility] Number [facility] [address] [place] [phone] * Hemoglobin A1c (05/03/2024 4:02 PM EST) Pathologist [facility] Hemoglobin A1c 4.9 <6.0 % [facility] Comment:Hemoglobin A1C Refer ence Range Adults: 4.8 - 6.0 % Non diabetic: < 6.0 % Goal: < 7.0 %Additional Action Suggested: > 8.0 %Note: Hemoglobin A1c results are invalid for patients with abnormal amounts of HbF. Blood transfusions may impact the HbA1c concentration in the patient sample. Estimated Average Glucose 94 mg/dL [facility] Comment:eAG = Estimated ave rage glucose which is %A1C expressed asaverage glucose, using the formula of the I2J-QwhsfjwKeemgeu Glucose study (ADAG), Diabetes Care, Vol.31,#8,Oct. 2007 Blood Venous blood specimen / Unknown 05/03/2024 4:02 PM EST 05/03/2024 5:50 PM EST Carol Almaraz NP LAB BLOOD ORDERABLES Final Resul t Performing Organization Address [facility] Co de Phone Number [facility] [address] [place] [phone] * (ABNORMAL) Bacterial Vaginosis (04/03/2024 12:00 AM EST) TRICHOMONAS VAGINALIS DETECTION BY PCR NOT DETECTED Not Detect [facility] BACTERIAL VAGINOSIS DETECTION BY PCR POSITIVE(A) Negative [facility] Comment:The BV organism targ ets [...] GROUP DETECTION BY PCR DETECTED(A) Not Detect [facility] Madison glab krusei PCR DETECTED(A) Not Detect [facility] 04/03/2024 04/03/2024 us Generic External Data Provider LAB MICROBIOLOGY - GENERAL ORDERABLES Final Result Performing Organization Address [facility] Co de Phone Number [facility] [address] [place] [phone] * Chlamydia/N. Gonorrhoeae RNA, TMA, Urogenitial (04/03/2024 12:00 AM EST) CT PCR NOT DETECTED Not Detect. [facility] Comment:A not detected test result [...] psychologicalconsequences. NG PCR NOT DETECTED Not Detect. [facility] Comment:A not detected test result [...] medical, social or psychologicalconsequences. 04/03/2024 04/03/2024 Narrative [facility] - 04/04/2024 3:11 AM EST Vaginal Generic External Data Provider LAB MICROBIOLOGY - GENERAL ORDERABLES Final Result [facility] [address] [place] [phone] * Hepatitis C Ab (03/01/2024 1:40 PM EST) Hepatitis C Antibody Nonreactive Nonreactive [facility] Comment:Antibodies to HCV no t detected; does not exclude early acuteHCV infection. 03/01/2024 1:40 PM EST 03/01/2024 3:54 PM EST us Generic External Data Provider LAB BLOOD ORDERAB LES Final Result Performing Organization Address [facility] Co de Phone Number [facility] [address] [place] [phone] * HIV-1/2 Antigen and Antibodies, Fourth Generation, with Reflexes (03/01/2024 1:40 PM EST) HIV AB/AG Nonreactive Nonreactive [facility] Comment:HIV-1 p24 Ag and/or HIV-1/HIV-2 Ab not detected.A test result that is nonreactive does not exclude thepossibility of exposure to or infection with HIV-1 and/orHIV-2. Nonreactive results in this assay for individualswith prior exposure to HIV-1 and/or HIV-2 may be due toantigen and antibody levels that are below the limit ofdetection of this assay.The [employer] HIV Ag/Ab Combo assay result andsupplemental assay results should be interpreted inconjunction with the patient's clinical presentation,history and other laboratory results. If the results areinconsistent with clinical evidence, additional testing issuggested to confirm the result. 03/01/2024 1:40 PM EST 03/01/2024 3:54 PM EST us Generic External Data Provider LAB BLOOD ORDERAB LES Final Result Performing Organization Address [facility] Co de Phone Number [facility] [address] [place] [phone] * Pap Smear (07/21/2023 10:28 AM EDT) 07/21/2023 10:2 8 AM EDT 07/25/2023 7:30 AM EDT Narrative [facility] - 08/12/2023 5:55 PM EDT ----- ------- Name: Ashanti Ontiveros ?Age/Sex: / ? : 2000 Unit#: [id number] ?? Attend Dr: Judith Bullock CNM ?Re07/21/23 ?Status: DEP REF ? Location: HO.LNP ?Disch: ? ----- ------- SPEC : [id number] ? RECD: 07/25/23 ? STATUS: ??SOUT ? REQ NUM: [id number] ? MELVIN: 07/21/23-1027 ? SUBM DR: Judith Bullock CNM ? ENTERED: ??07/25/23 ?SP TYPE: Pap Smr ?OTHR DR: Susie Nascimento MANUFACTURED BUILDINGS REPAIRER ? ORDERED: ??Pap Smear ? Interpretation ?? Satisfactory for evaluation. ?? Negative for intraepithelial lesion or malignancy. ?Clinical Information LMP: 06/30/23 Previous PAP test: No pap hx ? Material Received ?? ThinPrep-Cervical Copies To: ?? Judith Bullock CNM ?? [address] ?? [place] [address] ?? [phone] ?? DixonSusie MANUFACTURED BUILDINGS REPAIRER ?? [address] [facility] ?? [place] [address] ?? [phone] ----- ------- Signed (signature on file) Priti Tam Summer 08/12/231754 ? ----- ------- ? END OF REPORT ? us Generic External Data Provider LAB CYTOLOGY MORTEZA ROBERTS Final Result [facility] [address] [place] [phone] from Last 3 Months or Most Recently Relevant to Health Maintenance Insurance [place] [facility] MEDICAID STAND ADULT DENTAL-[facility] MED[facility]ID STAND ADULT Care Teams Flavoring Machine Operator Relationship Specialty Start Date End Date Carol Almaraz NP [address] [place] [phone] PCP - General Family Medicine 08/04/23 Huma Miranda, MOSES [address] [place] [phone] [employer] P[employer] DipperScruff Worker 06/06/24
== END 2024-06-12 11:39 | disposition home or self-care (01) ==
LOC: HO.HOS 11:08
PROVIDERS: Visit Provider Orthopaedic Surgery
DX: Z86.59 Personal history of other mental and behavioral disorders (principal); J45.909 Unspecified asthma, uncomplicated; D18.00 Hemangioma unspecified site
CPT/HCPCS: 99024

== ENCOUNTER → 2024-06-12 11:07 | Outpatient (BNVA) | payer MEDICAID, SELFPAY | PROVIDERS: Visit Provider Orthopaedic Surgery | DX: Z09 Encounter for follow-up examination after completed treatment for conditions other than malignant neoplasm (principal); Z86.2 Personal history of diseases of the blood and blood-forming organs and certain disorders involving the immune mechanism; Z98.890 Other specified postprocedural states | CPT/HCPCS: 99212 ==

== ENCOUNTER 2024-09-03 11:54 | Outpatient (AMB) | payer MEDICAID, SELFPAY ==
--- NOTE | 2024-09-03 12:11 | A.OFFVIS_ITS ---
Intake Visit Reasons: Bleeding with IC Speech Therapy Director Required: Yes Speech Therapy Director Language: Account Relationship Manager Services: Speech Therapy Director Present (in person) Speech Therapy Director Name: Rose Marie VILLA Information Interpreted: non-clinical & clinical Bicycle Repair Technician: Bicycle Repair Technician Present (Rose Marie VILLA) Accompanied by: Self / Same As Patient Allergies No Known Allergies [No Known Allergies*] Allergy (Verified 09/03/24 12:16) Is last menstrual period known: Yes HPI Comments Details: Patient is here today with concerns of recent prolonged. An irregular cycle pattern >12d, and PC bleeding. She reports pelvic cramping, no odors slight increase in discharge. History of tubal ligation. UPT is negative today. Labs: TSH 0.38-04/2024, H/H 12.7/37/7 05/2024. PFSH Medical History Cervical cancer screening Depot contraception Lactating mother Acute vaginitis control counseling Vaginal discharge Abnormal uterine bleeding (AUB) Personal history of asthma COVID-19 History of depression Personal history of anxiety disorder Family history of asthma and other chronic lower respiratory diseases Surgical History Hx of tubal ligation History of retained foreign body fully removed (12/23/21) Family History Maternal Grandmother Hx of breast cancer Diabetes mellitus Maternal Aunt No problems noted. 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 Gender identity: Female Female Reproductive History Menstrual Age of Menarche: 13 Review of Systems Const All systems reviewed & are unremarkable except as noted in HPI and below Physical Exam Const General: cooperative, healthy appearing and no acute distress Orientation/consciousness: patient oriented x3 GI Inspection: Yes normal to inspection Palpation (GI): Soft to palpation and Other GI palpation findings present (Nontender) Rectal Exam - Female: visual inspection normal General: Yes bladder normal to palpation External Female Exam: normal appearance of the urethra Speculum Exam - Vagina: normal appearance of the vagina, normal palpation and normal vaginal discharge (Clear mucousy discharge) Speculum Exam - Cervix: normal appearance of the cervix and normal palpation Bimanual exam- vagina & uterus: normal bimanual exam, normal palpation, uterine size normal, bladder normal to palpation, normal palpation, uterine shape normal and non-tender Bimanual Exam- Adnexa, other: normal adnexae Neuro General: patient oriented x3 Results AMB Test Urine AMB Test Urine Negative Last Edit by Rose Marie Vera CMA on 13:29 Results Reviewed Results Reviewed: Laboratory Last Values Tst Clinic Negative 09/03/24 13:29 Assessment & Plan Assessment & Plan (1) Abnormal uterine bleeding (AUB): Code(s): N93.9 - Abnormal uterine and vaginal bleeding, unspecified Category: Medical Plan Discussed: Workup for abnormal uterine bleeding to include pelvic ultrasound, current TSH, GC chlamydia and BV panel, follow up in person for test results, monitor blee ding pattern report any heavy prolonged episodes. The patient expressed understanding and agreement with the plan of care. All of her questions and concerns were addressed to the best of my ability. This note is constructed using voice recognition software. While every effort has been made to ensure accuracy, hyster machine operator errors may have been included. Orders: Orders Thyroid Stimulating Hormone Today N92.1 - Excessive and frequent menstruation with irregular cycle US pelvic and transvaginal Today N93.9 - Abnormal uterine and vaginal bleeding, unspecified AMB HCG Urine Test Today Z32.02 - Encounter for test, result negative CT NG by PCR Today N93.9 - Abnormal uterine and vaginal bleeding, unspecified Bacterial Vaginosis Panel Today N93.9 - Abnormal uterine and vaginal bleeding, unspecified Medications: Discontinued metronidazole 0.75%(37.5mg/5gram) Discontinued Reason: No Longer Medically Relevant 1 appful vaginal BEDTIME 5 days 70 grams 0RF miconazole nitrate 2% (Miconazole-7) Use now for vaginal yeast infection and in future for recurrence of symptoms... Discontinued Reason: No Longer Medically Relevant 1 appful vaginal BEDTIME 7 days 45 grams 2RF Coding Level of Care Code Est Pt Level 3 (34192) Diagnoses Abnormal uterine bleeding (AUB) N93.9
--- OUTSIDE RECORDS SUMMARY | 2024-09-03 14:12 | XMS_ITS | Clinical Summary ---
Author Organization [facility] Address [address] [place] [address] Care Team Providers Care Granite Setter Name Role Phone Unavailable Primary Care Provider [...] (1 - 3-dose series) 2016 Meningococcal B Vaccine (1 o f 2 - Standard) 2017 DTaP,Tdap,and Td Vaccines (1 - Tdap) 2020 Hepatitis B Vaccines (1 of 3 - 19+ 3-dose series) 2020 Cervical Cancer Screening: P ap Smear 2022 COVID-19 Vaccine ( - 2023-2 5 season) 2023 Influenza Vaccine (Season Ended) 2024 HIB Vaccines Aged Out No longer eligi [...]
== END 2024-09-03 12:33 | disposition home or self-care (01) ==
LOC: HO.HWS 11:55
PROVIDERS: Visit Provider Advanced Practice Midwife
DX: Z32.02 Encounter for pregnancy test, result negative (principal); N93.9 Abnormal uterine and vaginal bleeding, unspecified
CPT/HCPCS: 99213

== ENCOUNTER 2024-09-03 11:54 | Outpatient (REF) | payer MEDICAID, SELFPAY ==
[2024-09-03 14:31] LABS: Thyroid Stimulating Hormone 0.39 uIU/mL (0.32-4.0)
== END 2024-09-03 11:55 | disposition home or self-care (01) ==
LOC: HO.LAB 11:54
PROVIDERS: Visit Provider Advanced Practice Midwife
DX: N92.1 Excessive and frequent menstruation with irregular cycle (principal); N93.9 Abnormal uterine and vaginal bleeding, unspecified; Z11.3 Encounter for screening for infections with a predominantly sexual mode of transmission
CPT/HCPCS: 36415; 81025; 81515; 84443; 87491; 87591; 99212

== ENCOUNTER 2024-09-03 13:29 | Outpatient (REF) | payer MEDICAID, SELFPAY ==
[2024-09-03 17:14] LABS: Bacterial Vaginosis PCR POSITIVE (Negative); Candida Group PCR NOT DETECTED (Not Detect); Candida glab krusei PCR NOT DETECTED (Not Detect); Trichomonas vaginalis PCR NOT DETECTED (Not Detect)
[2024-09-03 17:46] LABS: CT PCR NOT DETECTED (Not Detect.); NG PCR NOT DETECTED (Not Detect.)
== END 2024-09-03 13:30 | disposition home or self-care (01) ==
LOC: HO.LNP 13:29
PROVIDERS: Visit Provider Advanced Practice Midwife
DX: Z13.89 Encounter for screening for other disorder (principal)
CPT/HCPCS: 81515; 87491; 87591

== ENCOUNTER 2024-12-18 13:22 | Outpatient (REF) | payer MEDICAID, SELFPAY ==
--- NOTE | ~2024-12-18 | US_ITS ---
EXAMINATION: US PELVIS CLINICAL INFORMATION: Abnormal vaginal bleed. COMPARISON: December 01, 2018 TECHNIQUE: Ultrasound of the pelvis is performed using both transabdominal and transvaginal transducers along with Doppler. Transvaginal imaging is performed due to inadequate visualization transabdominally. FINDINGS: LMP: December 01, 2024. Uterus: The uterus is in retroversion flexion and measures 9 x 5 x 6 cm. Endocervical canal is closed. The double wall endometrial thickness is 25 mm. There is a 6 mm hypoechoic lesion beneath the endometrium at the right lower body of the uterus . Adnexa: Both ovaries are identified with flow on color Doppler interrogation.. Multiple scattered follicles. Small amount of free fluid in the cul-de-sac Right ovary measures 4 x 2 x 3 cm. Volume: 13 cc. There is a 2.4 cm anechoic lesion without septations or flow on color Doppler interrogation. Left ovary measures 3 x 2 x 2 cm. Volume: 6 cc. US/US pelvic and transvaginal IMPRESSION: 2.4 cm dominant follicle, right ovary. No ovarian torsion. 0.6 cm round soft tissue lesion, submucosal lower uterus. Consider a submucosal uterine fibroid. 25 mm thickened endometrial stripe. Small amount of free fluid in the cul-de-sac. Electronically signed by: Dashawn Dumont MD 12/18/2024 02:36 PM EDT
--- OUTSIDE RECORDS SUMMARY | 2024-12-18 15:48 | XMS_ITS | Clinical Summary ---
Author Organization [facility] it Address [address] [place] [address] Care Team Providers Care Financial Services Assistant Name Role Phone Unavailable Primary Care Provider [...] Cervical Cancer Screening: P ap Smear 2022 Depression Screening 03/27/2024 COVID-19 Vaccine (1 - 2023-2 5 season) 2024 Influenza Vaccine (#1) 2024 HIB Vaccines Aged Out No longer [...] 5 Years) and At-Risk Patients (6 to 49 Years) Aged Out No longer eligible b ased on patient's age to complete this topic RSV Immunization Patients Un ivonne 20 months Aged Out No longer eligible b ased on patient's age to complete this topic Varicella Vaccines Aged Out No longer eligible based on patient's age to complete this topic
--- OUTSIDE RECORDS SUMMARY | 2024-12-18 15:48 | XMS_ITS | Clinical Summary ---
Author Organization [employer] Address [address] [place] [address] Care Team Providers Care Internet Application Developer Name Role Phone Carol Almaraz KULDIP Primary Care Provider [phone] Allergies No known active allergies Medications * This document contains information received from the source organization and may not represent a complete record from that organization. albuterol 108 (90 Base) MCG/ACT inhalerIndicati ons:Influenza A Inhale 2 puffs every 4 (four) hours if needed for wheezing or shortness of breath. 18 g 1 3 Active Spacer/Aero-Hol ding Chambers (OptiChamber Tayler) miscIndications :Influenza A 1 each every 4 (four) hours if needed (asthma). 1 each 3 Active Additional Information Patient not taking.Reported on 08/04/2023 fluticasone (Flonase) 50 MCG/ACT nasal sprayIndication s:Seasonal allergic rhinitis due to pollen Administer 1-2 sprays into each nostril Once per day. Shake gently. Before first use, prime pump. After use, clean tip and replace cap. 16 g 2 4 Active citalopram (CeleXA) 10 MG tablet Take 1 tablet (10 mg) by mouth Once per day. 30 tablet 2 5 02/03/20 25 Active Active Problems Problem Noted Date Diagnosed Date CHLOE (generalized anxiety disorder) 08/06/2024 Assessment & Plan (08/18/2024 3:11 PM EDT): Referral to behavioral health, Trial celexa, Medication Indications, side effects and duration of therapy reviewed, pt aware to call clinic for worsening symptoms or failure to resolve Pre-syncope 05/05/2024 Assessment & Plan (05/05/2024 7:34 [...] pt plans to rtc and will complete vanderbuilt Dry eyes 02/27/2023 Asthma 02/02/2023 02/02/2023 Seizure 11/17/2016 02/02/2023 Assessment & Plan (05/05/2024 7:31 PM EST): Hx of pediatric seizures, 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 Date Type Department Care Team Description 10/10/2024 Telephone [facility] [address] [place] [phone] Teresita Kang MA Chart Prep from Last 3 Months Immunizations Immunization Administration Dates Next Due DTaP 10/22/2005, 3,03/06/2002,01/02,2001 HPV 9-Valent 06/01/2018,01/19/2017,11/17/2016 HPV, Quadrivalent 06/01/2018,01/19/2017,11/18/19 17 Hep A, Unspecified 04/22/2011,10/20/2010 Hep A, ped/adol, 2 dose 04/22/2011,10/20/2010 Hep [...] Answer Date Recorded Patient Health Questionnaire-9 Score 2 08/06/2024 Patient Health Questionnaire-9 Score 2 08/06/2024 Last PHQ-9: Questionnaire Data Not on file 0 08/06/2024 Housing Stability Answer Date Recorded What is your housing situation today? I have rose barillas 08/06/[address] you li ve. Do you have problems with any of the following? None of the above 08/06/2024 Food Insecurity Answer Date Recorded Within the past 12 months, y ou worried that your food would run out before you got money to buy more: Never True 08/06/2024 Within the past 12 months,th e food you bought just didn't last and you didn't have enough money to get more: Never True Transportation Answer Date Recorded In the past 12 months, has l ack of transportation kept you from medical appts, meetings, work or from getting things needed for daily living? No 08/06/2024 Utilities Answer Date Recorded In the past 12 months, has t he electric, gas, oil or water company threatened to shut off services in your home? No 08/06/2024 Depression Answer Date Recorded Patient Health Questionnaire-2 Score 0 08/06/2024 Internet Access Answer Date Recorded Internet Access Q1 Yes 08/06/2024 Internet Access Q2 Not on file 08/06/2024 Comments No Sex and Gender Information Value Date Recorded Sex Assigned at Female 01/24/2022 10:31 AM EDT Legal Sex Female 10:31 AM EDT Gender Identity Female 01/24/2022 10:31 AM EDT Sexual Orientation Straight 01/24/2022 10 :31 AM EDT Last Filed Vital Signs Vital Sign Reading Time Taken Comments Blood Pressure 109/68 08/06/2024 1:04 PM EDT Pulse 68 08/06/2024 1:04 PM EDT Temperature 36.6 C (97.9 F) 08/06/2024 1:04 PM EDT Respiratory Rate 17 08/06/2024 1:04 PM EDT Oxygen Saturation 98% 08/06/2024 1:04 PM EDT Inhaled Oxygen Concentration - - Weight 53.1 kg (117 lb) 08/06/2024 1:04 PM EDT Height 165.1 cm (5' 5 ) 08/06/2024 1:04 PM EDT Body Mass Index 19.47 08/06/2024 1:04 PM EDT Plan of Treatment Upcoming Encounters Date Type Department Care Team (Late st Contact Info) Description 05/07/2025 9:30 AM EST Office Visit [facility] [address] [place] [address] Renato, Dottie, OD [address] [place] [address] Health Maintenance Due Date Last Done Comments Disability Screening 2001 Pneumococcal Vaccine: Pediatrics (0 to 5 Years) and At-Risk Patients (6 to 49) Years (1 of 1 - PPSV23) 08/30/2007 09/18/2002, 05/22/2002, 03/06/2002 Family Planning (PISQ) 2016 Meningococcal B Vaccine (1 of 2 - Standard) 2017 Dental Oral Exam 11/17/2021 05/19/2021, , 05/29/2019, Additional history exists Dental Prophylaxis 12/05/2021 06/03/2021, 0 06/11/2020, 05/29/2019, Additional history exists Dental X-Ray: Bitewings 05/20/2022 05/19/19 22, 10/09/2020, 05/29/2019, Additional history exists DTaP/Tdap/Td Vaccines (8 - Td or Tdap) 09/24/2022 09/24/2012, 09/24/2012, 09/24/2012, Additional history exists Dental X-Ray: Full Mouth 05/20/2024 05/19/2021, 05/26 COVID-19 Vaccine ( - season) 2024 05/28/2021, 05/07/2021 Influenza Vaccine (#1) 2024 , 03/06/2020, 06/07/2019, Additional history exists Chlamydia and Gonorrhea Screening 04/03/2025 04/03/2024, 03/01/2024, 10/25/2023, Additional history exists Alcohol/Substance Use Screening 08/06/2025 08/06/2024 Depression Screening 08/06/2025 08/06/2024, 08/07/19 SDOH Screening 08/06/2025 08/06/2024 Tobacco Screening 08/06/2025 08/06/2024 Pap Smear 07/20/2026 07/21/2023 Zoster Vaccines (1 of 2) 08/30/2051 RSV Patients and Patients Aged 60 years or older (1 - 1-dose 75+ series) 2076 Hepatitis B Vaccines Completed 09/18/2002, 01/02/2002, 2001 HIB Vaccines Completed 12/18/2002, 11/2001, 2001 IPV Vaccines Completed 10/22/2005, 02/24, 01/02/2002, Additional history exists Hepatitis A Vaccines Completed 04/22/2011, 04/22/2011, 10/20/2010, Additional history exists HPV Vaccines Completed 06/01/2018, 10/2018, 01/19/2017, Additional [...] Procedure Name Priority Date/Time Associated Diagnosis Comments CHLAMYDIA/N. GONORRHOEAE RNA, TMA, UROGENITAL Routine 04/03/2024 [...] Recently Relevant to Health Maintenance Results * Chlamydia/N. Gonorrhoeae RNA, TMA, Urogenitial (04/03/2024 12:00 AM EST) CT PCR NOT DETECTED Not Detect. [facility] Comment:A not detected test result [...] psychologicalconsequences. NG PCR NOT DETECTED Not Detect. [facility] Comment:A not detected test result [...] medical, social or psychologicalconsequences. 04/03/2024 04/03/2024 Narrative [facility] - 04/04/2024 3:11 AM EST Vaginal Generic External Data Provider LAB MICROBIOLOGY - GENERAL ORDERABLES Final Result Performing Organization Address [facility] Co de Phone Number [facility] [address] [place] [phone] * Hepatitis C Ab (03/01/2024 1:40 PM EST) Hepatitis C Antibody Nonreactive Nonreactive [facility] Comment:Antibodies to HCV no t detected; does not exclude early acuteHCV infection. 03/01/2024 1:40 PM EST 03/01/2024 3:54 PM EST Generic External Data Provider LAB BLOOD ORDERAB LES Final Result Performing Organization Address [facility] Phone Number [facility] [address] [place] [phone] * HIV-1/2 Antigen and Antibodies, Fourth Generation, with Reflexes (03/01/2024 1:40 PM EST) Pathologist [facility] HIV AB/AG Nonreactive Nonreactive [facility] Comment:HIV-1 p24 Ag and/or HIV-1/HIV-2 Ab not detected.A test result that is nonreactive does not exclude thepossibility of exposure to or infection with HIV-1 and/orHIV-2. Nonreactive results in this assay for individualswith prior exposure to HIV-1 and/or HIV-2 may be due toantigen and antibody levels that are below the limit ofdetection of this assay.The [employer] HIV Ag/Ab Combo assay result andsupplemental assay results should be interpreted inconjunction with the patient's clinical presentation,history and other laboratory results. If the results areinconsistent with clinical evidence, additional testing issuggested to confirm the result. 03/01/2024 1:40 PM EST 03/01/2024 3:54 PM EST us Generic External Data Provider LAB BLOOD ORDERAB LES Final Result [facility] [address] [place] [phone] * Pap Smear (07/21/2023 10:28 AM EDT) 07/21/2023 10:2 8 AM EDT 07/25/2023 7:30 AM EDT Narrative [facility] - 08/12/2023 5:55 PM EDT ----- ------- Name: Ashanti Ontiveros Age/Sex: 22/F : 2000 Unit#: [id number] Attend Dr: Judith Bullock CNM Re07/21/23 Status: DEP REF Location: [facility] Disch: ----- ------- SPEC : [id number] RECD: 07/25/23 STATUS: HENRY RIGGINS NUM: [id number] MELVIN: 07/21/23-[address]: Judith Bullock CNM ENTERED: 07/25/23 SP TYPE: Pap Smr OTHR DR: Susie Nascimento MITTEN SEWER ORDERED: Pap Smear Interpretation Satisfactory for evaluation. Negative for intraepithelial lesion or malignancy. Clinical Information LMP: 06/30/23 Previous PAP test: No pap hx Material Received ThinPrep-Cervical Copies To: Judith Bullock [address] [place] [address] [facility] [address] [place] [address] ----- ------- Signed (signature on file) Priti Yonatan Wheeler 08/12/23 1755 ----- ------- END OF REPORT Generic External Data Provider LAB CYTOLOGY MORTEZA ROBERTS Final Result [facility] [address] [place] [phone] from Last 3 Months or Most Recently Relevant to Health Maintenance Insurance [email or web address] [facility] ST[place] AD[place] [facility] MEDICAID STAND ADULT Care Teams Internet Application Developer Relationship Specialty Start Date End Date Carol Almaraz NP [address] [place] [address] PCP - General Family Medicine 08/04/23
== END 2024-12-18 13:23 | disposition home or self-care (01) ==
LOC: HO.US 13:22
PROVIDERS: Visit Provider Advanced Practice Midwife
DX: N93.9 Abnormal uterine and vaginal bleeding, unspecified (principal)
CPT/HCPCS: 76830; 76856

== ENCOUNTER → 2024-12-18 13:25 | Outpatient (BNV) | payer MEDICAID, SELFPAY | PROVIDERS: Visit Provider Radiology Diagnostic Radiology | DX: N93.9 Abnormal uterine and vaginal bleeding, unspecified (principal); N83.01 Follicular cyst of right ovary | CPT/HCPCS: 76830; 76856 ==

== ENCOUNTER 2025-01-16 09:52 | Outpatient (AMB) | payer MEDICAID, SELFPAY ==
--- NOTE | 2025-01-16 09:53 | MHC.OFFVIS ---
Intake Visit Reasons: Ultrasound follow up Broaching Machine Set Up Operator Required: Yes Broaching Machine Set Up Operator Language: Mortgage Loan Underwriter Name: Mimi [id number] Information Interpreted: non-clinical & clinical International Trade Specialist: International Trade Specialist Present Allergies No Known Allergies (No Known Allergies*) Allergy (Verified 01/16/25 09:55) Is last menstrual period known: Yes Last menstrual period: 01/03/25 HPI Comments Details: Patient is here today for a follow up pelvic ultrasound history of abnormal uterine bleeding for over 12 days and postcoital bleeding. She reports currently the cycles are shorter back to 5-6 days, still has postcoital bleeding, and right-sided, throbbing, crampy pelvic pain since her tubal ligation in 2022. Also concerned that she has frequent bacterial vaginosis and it seems to never completely go away after treatment. She declines an pelvic exam today and denies any symptoms including dysuria. She denies any contraindications to control such as: migraines with aura, history of DVT or pulmonary emboli, high blood pressure, liver disease, thrombolic disorders, Lupus, +ILEANA, breast cancer, or smoking. [facility] Medical History (Updated 01/16/25 @ 10:46 by Yolis Campuzano CNM) Post-tubal ligation syndrome Cervical cancer screening Depot contraception Lactating mother Acute vaginitis control counseling Vaginal discharge Abnormal uterine bleeding (AUB) Personal history of asthma COVID-19 History of depression Personal history of anxiety disorder Family history of asthma and other chronic lower respiratory diseases Surgical History (Updated 01/16/25 @ 10:10 by Yolis Campuzano CNM) Hx of tubal ligation History of retained foreign body fully removed (12/23/21) Family History Maternal Grandmother Hx of breast cancer Diabetes mellitus Maternal Aunt No problems noted. 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, 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 Gender identity: Female Female Reproductive History Menstrual Age of Menarche: 13 Date of last menstrual period: 01/03/25 Review of Systems Const All systems reviewed & are unremarkable except as noted in HPI and below Endo Reports no additional complaints Physical Exam Const General: cooperative, healthy appearing and no acute distress Psych Appearance: well kempt Attitude: cooperative Thought process: Normal thought process present Results Reviewed Results Reviewed: [address] [address] Ultrasound Report Signed Patient: Ashanti Ontiveros MR#: [id number] : 2000 Acct:[id number] Age/Sex: 24 / F ADM Date: 12/18/24 Loc: HO.US Attending Dr: Yolis Campuzano CNM Ordering Physician: Yolis Campuzano CNM Date of Service: 12/18/24 Procedure(s): US pelvic and transvaginal Accession Number(s): [id number] cc: Yolis Campuzano CNM~ Reason for Exam: N93.9 - Abnormal uterine and vaginal bleeding, unspecified EXAMINATION: US PELVIS CLINICAL INFORMATION: Abnormal vaginal bleed. COMPARISON: December 01, 2018 TECHNIQUE: Ultrasound of the pelvis is performed using both transabdominal and transvaginal transducers along with Doppler. Transvaginal imaging is performed due to inadequate visualization transabdominally. FINDINGS: LMP: December 01, 2024. Uterus: The uterus is in retroversion flexion and measures 9 x 5 x 6 cm. Endocervical canal is closed. The double wall endometrial thickness is 25 mm. There is a 6 mm hypoechoic lesion beneath the endometrium at the right lower body of the uterus . Adnexa: Both ovaries are identified with flow on color Doppler interrogation.. Multiple scattered follicles. Small amount of free fluid in the cul-de-sac Right ovary measures 4 x 2 x 3 cm. Volume: 13 cc. There is a 2.4 cm anechoic lesion without septations or flow on color Doppler interrogation. Left ovary measures 3 x 2 x 2 cm. Volume: 6 cc. US/US pelvic and transvaginal IMPRESSION: 2.4 cm dominant follicle, right ovary. No ovarian torsion. 0.6 cm round soft tissue lesion, submucosal lower uterus. Consider a submucosal uterine fibroid. 25 mm thickened endometrial stripe. Small amount of free fluid in the cul-de-sac. Electronically signed by: Dashawn Dumont MD 12/18/2024 02:36 PM EDT RP Dictated By: Dashawn Dash MD Signed By: <Electronically signed by Dashawn Leong MD in OV> 12/18/24 1436 DD/ 1347 TD/TT: 12/18/24 1403 Sandblaster Paint Sprayer: Assessment & Plan Assessment & Plan (1) Post-tubal ligation syndrome: Code(s): N99.89 - Other postprocedural complications and disorders of genitourinary system; Z98.51 - Tubal ligation status Category: Medical Plan: Reviewed literature regarding post tubal ligation syndrome, treatment options, pain management. The patient expressed understanding and agreement with the plan of care. All of her questions and concerns were addressed to the best of my ability. (2) Pelvic pain: Code(s): R10.2 - Pelvic and perineal pain Plan: As noted above. She declines a pelvic exam today and has no symptoms of BV. Counseled regarding vaginal john, use of women's probiotics, boric acid protocol, and challenges in treating chronic BV. Patient was provided with handout information and Internet access to products reviewed. The patient expressed understanding and agreement with the plan of care. All of her questions and concerns were addressed to the best of my ability. (3) Abnormal uterine bleeding (AUB): Code(s): N93.9 - Abnormal uterine and vaginal bleeding, unspecified Category: Medical Plan: Counseled regarding option treatments for pelvic pain and abnormal bleeding. Options discussed below. (4) PCB (post coital bleeding): Code(s): N93.0 - Postcoital and contact bleeding Category: Medical Plan: Discussed: Ultrasound findings with 6 mm hypoechoic area beneath the endometrium consistent with a fibroid. (5) Counseling for initiation of control method: Code(s): Z30.09 - Encounter for other general counseling and advice on contraception Plan Cycle control options including Mirena, Depo-Provera, OCPs, she reports being forgetful with taking pills, and prefers to go back on to Depo-Provera. Counseled regarding Depo-Provera use long-term effects on bone health, recommended regular weight-bearing exercise and a healthy calcium and vitamin-D diet. Advised to start with her next cycle, to call and schedule her appointment at that time. Monitor bleeding report any prolonged or heavy episodes. Follow up in 3-4 months for med check. The patient expressed understanding and agreement with the plan of care. All of her questions and concerns were addressed to the best of my ability. Total time I personally spent on visit and management today: ?50 minutes. Time spent included review of pertinent office notes in the electronic health record; review of laboratory and imaging results; review of personal family medical history; performing physical exam; discussing diagnosis and plan of care with the patient; documenting the encounter in the EMR. Medications: New medroxyprogesterone (Depo-Provera) 150 mg IM [id number] 1 mL 1RF 90 days Coding Level of Care Code Est Pt Level 3 (94678) Diagnoses Post-tubal ligation syndrome N99.89; Z98.51 Pelvic pain R10.2 Abnormal uterine bleeding (AUB) N93.9 PCB (post coital bleeding) N93.0 Counseling for initiation of control method Z30.09
--- OUTSIDE RECORDS SUMMARY | 2025-01-16 11:23 | XMS_ITS | Clinical Summary ---
Author Organization [facility] ity Address [address] [place] [address] Care Team Providers Care Pit Operator Name Role Phone Unavailable Primary Care Provider [...] 5 season) 2024 Influenza Vaccine (#1) 2024 RSV Immunization Adult Patie nts (1 - 1-dose 75+ series) 2076 HIB Vaccines Aged Out No longer eligi [...]
== END 2025-01-16 10:42 | disposition home or self-care (01) ==
LOC: HO.HWS 09:52
PROVIDERS: Visit Provider Advanced Practice Midwife
DX: N99.89 Other postprocedural complications and disorders of genitourinary system (principal); Z98.51 Tubal ligation status; R10.20 Pelvic and perineal pain unspecified side; N93.9 Abnormal uterine and vaginal bleeding, unspecified; N93.0 Postcoital and contact bleeding; Z30.09 Encounter for other general counseling and advice on contraception
CPT/HCPCS: 99213

== ENCOUNTER → 2025-01-16 09:52 | Outpatient (BNVA) | payer MEDICAID, SELFPAY | PROVIDERS: Visit Provider Advanced Practice Midwife | DX: N93.0 Postcoital and contact bleeding (principal); R10.20 Pelvic and perineal pain unspecified side; N99.89 Other postprocedural complications and disorders of genitourinary system; Z98.51 Tubal ligation status; N93.9 Abnormal uterine and vaginal bleeding, unspecified | CPT/HCPCS: 99212 ==

== ENCOUNTER 2025-02-06 12:38 | Outpatient (AMB) | payer MEDICAID, SELFPAY ==
--- NOTE | 2025-02-06 12:57 | AM.OFFVISNUR ---
Vital Signs 02/06/25 12:57 Height 5 ft 4 in Weight 116 lb 4 oz BMI 20.0 Intake Visit Reasons: DEPO Allergies No Known Allergies (No Known Allergies*) Allergy (Verified 01/16/25 09:55) Nursing Note pt is here today for her 1st Depo-provera inj, using for Abnormal uterine bleeding. Pt has hx of Tubal ligation. Pt started her period today. Inj given in left deltoid per pt request. Pt tolerated well. To administrative assistant front desk for scheduling next Depo-Provera appt in 12 weeks. Office Procedures Depo Questionnaire If YES to any of the following questions, please consult a provider. Date of last menstrual period: 02/06/25 Menstrual pattern since last injection has been: Not Applicable Irregular bleeding?: Yes Breast lumps or other breast changes?: No Changes in weight or appetite?: No Depression or changes in mood?: No Abnormal hair growth or loss?: No Skin problems (rash, acne, discoloration)?: No Pain at the injection site?: No Headaches?: No Nervousness?: No Abdominal pain or cramping?: No Dizziness or nausea?: No Fatigue or weakness?: No Decrease in sexual drive?: No Chest pain or shortness of breath?: No Swelling in arms or legs?: No Form completed by?: Rodney perdomo LPN Office Meds Depo-Provera 150 mg/mL intramuscular syringe Performing Provider: Yolis Campuzano CNM Performing Location: [facility] Administered by: Hattie Perdomo LPN on 02/06/25 12:58 Dose Route Admin Location Dispensed Lot Number Expiration Date [facility] Railroad Inspector 150 mg IM left deltoid 1 mL [id number] 03/26/27 41922-046-32 [facility] Total Dispensed Waste 1 mL 0 % Assessment & Plan Assessment & Plan Orders: Orders AMB Medroxyprogesterone Injection Patient Supplied Today N93.9 - Abnormal uterine and vaginal bleeding, unspecified Coding Level of Care Code Established Pt Est Pt Level 1 (53122) Patient Type Established History Problem Focused Exam Problem Focused Medical Decision Making Straight Forward Time Spent (min) 20
--- OUTSIDE RECORDS SUMMARY | 2025-02-06 15:45 | XMS_ITS | Clinical Summary ---
Author Organization [facility] Address [address] [place] [address] Care Team Providers Care Punchboard Stuffer Name Role Phone Carol Almaraz KULDIP Primary Care Provider [phone] Allergies No known active allergies Medications * [...] Once per day. 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, no known seizure activity Depressive disorder 10/28/2016 Posttraumatic stress disorder 10/28/2016 Oppositional defiant disorder 10/28/2016 Immunizations Immunization Administration Dates Next Due DTaP [...] Description 05/07/2025 9:30 AM EST Office Visit [facility] [address] [place] [address] Dottie Gross, OD [address] [place] [address] Health Maintenance Due Date Last Done Comments Disability Screening 2000 Pneumococcal Vaccine: Pediatrics (0 to 5 Years) and At-Risk Patients (6 to 49) Years (1 of 1 - PPSV23, PCV20, or PCV21) 08/30/2007 09/18/2002, 05/22/2002, 03/06/2002 Family Planning (PISQ) [...] Mouth 05/20/2024 05/19/2021, 05/26 COVID-19 Vaccine ( season) 2024 05/28/2021, 05/07/2021 Influenza Vaccine (#1) 2024 , 03/06/2020, 06/07/2019, Additional history exists Alcohol/Substance Use Screening 08/06/2025 08/06/2024 Depression Screening 08/06/2025 08/06/2024, 08/07/19 25 SDOH Screening 08/06/2025 08/06/2024 Tobacco Screening 08/06/2025 08/06/2024 Chlamydia and Gonorrhea Screening 09/03/2025 09/03/2024, 09/03/2024, 04/03/2024, Additional history exists Pap Smear 07/20/2026 07/21/2023 [...] EST) CT PCR NOT DETECTED Not Detect. [facility] Comment:A not detected test result [...] psychologicalconsequences. NG PCR NOT DETECTED Not Detect. [facility] Comment:A not detected test result [...] medical, social or psychologicalconsequences. 04/03/2024 04/03/2024 Narrative [facility] - 04/04/2024 3:11 AM EST Vaginal us Generic External Data Provider LAB MICROBIOLOGY - GENERAL ORDERABLES Final Result [facility] [address] [place] [phone] * Hepatitis C Ab (03/01/2024 1:40 PM EST) Hepatitis C Antibody Nonreactive Nonreactive [facility] Comment:Antibodies to HCV no t detected; does not exclude early acuteHCV infection. 03/01/2024 1:40 PM EST 03/01/2024 3:54 PM EST us Generic External Data Provider LAB BLOOD ORDERAB LES Final Result Performing Organization Address [facility] de Phone Number [facility] [address] [place] [phone] * HIV-1/2 Antigen and Antibodies, Fourth Generation, with Reflexes (03/01/2024 1:40 PM EST) Pathologist [facility] HIV AB/AG Nonreactive Nonreactive [facility] Comment:HIV-1 p24 Ag and/or HIV-1/HIV-2 Ab not detected.A test result that is nonreactive does not exclude thepossibility of exposure to or infection with HIV-1 and/orHIV-2. Nonreactive results in this assay for individualswith prior exposure to HIV-1 and/or HIV-2 may be due toantigen and antibody levels that are below the limit ofdetection of this assay.The [employer] HIV Ag/Ab Combo assay result andsupplemental assay results should be interpreted inconjunction with the patient's clinical presentation,history and other laboratory results. If the results areinconsistent with clinical evidence, additional testing issuggested to confirm the result. 03/01/2024 1:40 PM EST 03/01/2024 3:54 PM EST us Generic External Data Provider LAB BLOOD ORDERAB LES Final Result Performing Organization Address [facility] Co de Phone Number [facility] [address] [place] [phone] * Pap Smear (07/21/2023 10:28 AM EDT) 07/21/2023 10:2 8 AM EDT 07/25/2023 7:30 AM EDT [facility] - 08/12/2023 5:55 PM EDT ----- ------- Name: Dick BellamyAshanti Age/Sex: 22/F : 2000 Unit#: [id number] Attend Dr: Judith Bullock CNM Re07/21/23 Status: DEP REF Location: HO.[facility] Disch: ----- ------- SPEC : [id number] RECD: 07/25/23-729 STATUS: HENRY RIGGINS NUM: [id number] MELVIN: 07/21/23-1028 [facility] DR: Judith Bullock CNM ENTERED: 07/25/23-08 SP TYPE: Pap Smr OTHR DR: Susie Nascimento ORDERED: Pap Smear Interpretation Satisfactory for evaluation. Negative for intraepithelial lesion or malignancy. Clinical Information LMP: 06/30/23 Previous PAP test: No pap hx Material Received ThinPrep-Cervical Copies To: Judith Bullock CNM [address] [place] [address] Dr. Smith [address] [place] [address] [phone] Susie Nascimento [address] [place] [address] ----- ------- Signed (signature on file) Priti Wheeler 08/12/23 1755 ----- ------- END OF REPORT Generic External Data Provider LAB CYTOLOGY MORTEZA ROBERTS Final Result [facility] [address] [place] [address] [phone] from Last 3 Months or Most Recently Relevant to Health Maintenance Insurance [facility] C3 DENTAL[place] AD[place] AD[place] Care Teams Punchboard Stuffer Relationship Specialty Start Date End Date Carol Almaraz NP [address] [place] [phone] PCP - General Family Medicine 08/04/23
--- OUTSIDE RECORDS SUMMARY | 2025-02-06 15:45 | XMS_ITS | Clinical Summary ---
Author Organization [facility] it[facility] Address [address] [place] [address] Care Team Providers Care Hot Mill Roller Name Role Phone Unavailable Primary Care Provider [...] Depression Screening 03/27/2024 COVID-19 Vaccine (1 - 2024-2 6 season) 2024 Influenza Vaccine (#1) 2024 RSV [...]
== END 2025-02-06 14:55 | disposition home or self-care (01) ==
LOC: HO.HWS 12:38
PROVIDERS: Visit Provider Advanced Practice Midwife
DX: N93.9 Abnormal uterine and vaginal bleeding, unspecified (principal)

== ENCOUNTER → 2025-02-06 12:38 | Outpatient (BNVA) | payer MEDICAID, SELFPAY | PROVIDERS: Visit Provider Advanced Practice Midwife | DX: N93.9 Abnormal uterine and vaginal bleeding, unspecified (principal); Z98.51 Tubal ligation status | CPT/HCPCS: 96372; 99211; J1050 ==

== ENCOUNTER 2025-03-13 09:07 | Outpatient (REF) | payer MEDICAID, SELFPAY ==
[2025-03-14 01:53] LABS: Bacterial Vaginosis PCR POSITIVE (Negative); Candida Group PCR NOT DETECTED (Not Detect); Candida glab krusei PCR NOT DETECTED (Not Detect); Trichomonas vaginalis PCR NOT DETECTED (Not Detect)
[2025-03-14 02:24] LABS: CT PCR NOT DETECTED (Not Detect.); NG PCR NOT DETECTED (Not Detect.)
== END 2025-03-13 09:08 | disposition home or self-care (01) ==
LOC: HO.LNP 09:07
PROVIDERS: Visit Provider Advanced Practice Midwife
DX: N92.6 Irregular menstruation, unspecified (principal); D21.9 Benign neoplasm of connective and other soft tissue, unspecified; Z20.2 Contact with and (suspected) exposure to infections with a predominantly sexual mode of transmission; Z98.51 Tubal ligation status
CPT/HCPCS: 81025; 81515; 87491; 87591; 99212

== ENCOUNTER 2025-03-13 09:07 | Outpatient (AMB) | payer MEDICAID, SELFPAY ==
--- NOTE | 2025-03-13 09:16 | A.OFFVIS_ITS ---
Vital Signs 03/13/25 09:18 Height 5 ft 4 in Weight 115 lb BMI 19.7 BP 100/62 Blood Pressure Location Rt brachial Position Sitting Intake Visit Reasons: Abnormal uterine bleeding Intake Note: Depo started in january and complaining of vaginal bleeding every day. sometimes heavy and then it is light for a few days. Ultrasound Applications Specialist Required: No Ultrasound Applications Specialist Services: Ultrasound Applications Specialist Present Ultrasound Applications Specialist Name: yesenia sahu #[id number] Information Interpreted: non-clinical & clinical Quantitative Research Analyst: Quantitative Research Analyst Present (Nannette) Accompanied by: Self / Same As Patient Allergies No Known Allergies (No Known Allergies*) Allergy (Verified 03/13/25 09:21) Medication List - Last Reconciled 03/13/25 by Ivanna Villalobos LPN albuterol sulfate 90 mcg/actuation 1 inh inhalation Q4-6H PRN ibuprofen 400 mg PO TID PRN medroxyprogesterone (Depo-Provera) 150 mg IM [id number] 90 days Is last menstrual period known: Yes Last menstrual period: 02/06/25 Do you need a note to return to daycare/school/sports/work: No HPI Comments Details: Patient is here today for a follow up abnormal uterine bleeding history initiated Depo-Provera February 06 and has been bleeding daily. Using up to 6 thick pads/d, with heavier days. Has fatigue, hair loss, chills, chest pains, nausea, and shakes since Depo. Prior cycle history bleeds x 12 days and postcoital bleeding. History of pelvic pain since tubal ligation. History of BV in August, she reports vaginal odor today. History of submucosal fibroid. Pap 2023-neg. [facility] Medical History Irregular bleeding Fibroid Post-tubal ligation syndrome Cervical cancer screening Depot contraception Lactating mother Acute vaginitis control counseling Vaginal discharge Abnormal uterine bleeding (AUB) Personal history of asthma COVID-19 History of depression Personal history of anxiety disorder Family history of asthma and other chronic lower respiratory diseases Surgical History Hx of tubal ligation History of retained foreign body fully removed (12/23/21) Family History Maternal Grandmother Hx of breast cancer Diabetes mellitus Maternal Aunt No problems noted. 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, 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 Gender identity: Female Female Reproductive History Menstrual Age of Menarche: 13 Date of last menstrual period: 02/06/25 control method: progesterone injection Review of Systems Const All systems reviewed & are unremarkable except as noted in HPI and below Physical Exam Vital Signs: Last Vital Signs BP 100/62 03/13/25 09:18 BMI result Body Mass Index 19.7 Const General: cooperative, healthy appearing and no acute distress Orientation/consciousness: patient oriented x3 GI Inspection: Yes normal to inspection Palpation (GI): Soft to palpation and Other GI palpation findings present (Nontender) Rectal Exam - Female: visual inspection normal General: Yes bladder normal to palpation External Female Exam: normal appearance of the urethra Speculum Exam - Vagina: normal appearance of the vagina, normal palpation, normal vaginal discharge and vaginal bleeding (Small amount at os) Speculum Exam - Cervix: normal appearance of the cervix and normal palpation Bimanual exam- vagina & uterus: normal bimanual exam, normal palpation, uterine size normal, bladder normal to palpation, normal palpation, uterine shape normal and non-tender Bimanual Exam- Adnexa, other: normal adnexae OB/external & speculum: vaginal bleeding (Small amount at os) Neuro General: patient oriented x3 Results AMB Test Urine AMB Test Urine Negative Last Edit by Ivanna Villalobos LPN on 09:36 Results Reviewed Results Reviewed: Laboratory Last Values Tst Clinic Negative 03/13/25 09:35 Assessment & Plan Assessment & Plan (1) Fibroid: Comment: Submucosal lower uterine segment 0.6cm Code(s): D21.9 - Benign neoplasm of connective and other soft tissue, unspecified Category: Medical Plan: Counseled re: Leiomyoma: common pelvic neoplasm. Differential diagnosis-may include but not limited to- leiomyosarcoma which is a rare uterine sarcoma 3- 7/100,000, difficult to distinguish from fibroids on ultrasound from uterine sarcoma's. Unlikely any single test will have a highly positive predictive value. Hysterectomy is not recommended for sole purpose of excluding malignant neoplasm. Consult for surgical exploration, medical treatment, other treatments, verses expectant management, pros and cons, risks and benefits. Expectant management follow up in 6 months, then yearly for stability. Patient prefers to proceed with expectant management. Referral to MD if indicated for level of care if indicated Report any increased AUB changes, pelvic pressure, bloating, or pain. The patient expressed understanding and agreement with the plan of care. All of her questions and concerns were addressed to the best of my ability. (2) Irregular bleeding: Code(s): N92.6 - Irregular menstruation, unspecified Category: Medical Plan: Plan CBC, TSH reflex to free t4, vitamin-D, BV panel. Await results for final plan of care. Monitor menses, common in the 1st 3 months of Depo-Provera to have irregular bleeding, if bleeding increases and is heavy and prolonged or feeling any symptoms of anemia describe today to report to the emergency room immediately for evaluation. Continue to hydrate well. Follow up with PCP immediately for other symptoms. Return to the office 4-6 weeks for follow up on bleeding or call sooner if there is concerns. The patient expressed understanding and agreement with the plan of care. All of her questions and concerns were addressed to the best of my ability. This note is constructed using voice recognition software. While every effort has been made to ensure accuracy, outboard motor inspector errors may have been included. Orders: Orders US pelvic and transvaginal 06/02/ D21.9 - Benign neoplasm of connective and other soft tissue, unspecified Vitamin D 25-OH (D2 and D3) Today N92.6 - Irregular menstruation, unspecified AMB HCG Urine Test Today Z32.02 - Encounter for test, result negative TSH reflex Free T4 Today N92.6 - Irregular menstruation, unspecified Complete Blood Count no Diff Today N92.6 - Irregular menstruation, unspecified CT NG by PCR Vag/Cerv Today Z11.3 - Encounter for screening for infections with a predominantly sexual mode of transmission Bacterial Vaginosis Panel Today Z11.3 - Encounter for screening for infections with a predominantly sexual mode of transmission Coding Level of Care Code Est Pt Level 3 (21357) Diagnoses Fibroid D21.9 Irregular bleeding N92.6
[2025-03-13 09:18] VITALS: BP 100/62; BMI 19.7
--- OUTSIDE RECORDS SUMMARY | 2025-03-13 10:17 | XMS_ITS | Clinical Summary ---
Author Organization [employer] Address [address] [facility] [address] [place] [address] Care Team Providers Care Herbicide Sprayer Name Role Phone Carol Almaraz KULDIP Primary Care Provider [phone] Allergies No known active allergies Medications * [...] pt plans [facility] Dry eyes 02/27/2023 Asthma 02/02/2023 02/02/2023 Seizure ([facility]/HCC) 11/17/2016 02/02/2023 Assessment & Plan (05/05/2024 7:31 [...] Description 05/07/2025 9:30 AM EST Office Visit [facility] OPTOMETRY [address] [place] [address] Dottie Gross, OD [address] [place] [address] Health Maintenance Due Date Last Done Comments [...] 09/24/2012, Additional history exists COVID-19 Vaccine ( - season) 2024 05/28/2021, 05/07/2021 Influenza Vaccine (#1) 2024 0, 03/06/2020, 06/07/2019, Additional history exists Alcohol/Substance Use Screening 08/06/2025 08/06/2024 Depression Screening 08/06/2025 08/06/2024, 08/07/19 25 SDOH Screening 08/06/2025 08/06/2024 Tobacco Screening 08/06/2025 08/06/2024 Chlamydia and Gonorrhea Screening 09/03/2025 09/03/2024, 09/03/2024, 04/03/2024, Additional history exists Dental X-Ray: Full Mouth 12/20/2025 023, 05/19/2021, 05/19/2021, Additional history exists Pap Smear 07/20/2026 07/21/2023 [...] EST) CT PCR NOT DETECTED Not Detect. [facility] Comment:A not detected test result does [...] psychologicalconsequences. NG PCR NOT DETECTED Not Detect. [facility] Comment:A not detected test result does [...] medical, social or psychologicalconsequences. 04/03/2024 04/03/2024 Narrative [facility] - 04/04/2024 3:11 AM EST Vaginal us Generic External Data Provider LAB MICROBIOLOGY - GENERAL ORDERABLES Final Result Performing Organization Address [facility] Co de Phone Number [facility] [address] [place] [phone] * Hepatitis C Ab (03/01/2024 1:40 PM EST) Hepatitis C Antibody Nonreactive Nonreactive [facility] Comment:Antibodies to HCV no t detected; does not exclude early acuteHCV infection. 03/01/2024 1:40 PM EST 03/01/2024 3:54 PM EST Generic External Data Provider LAB BLOOD ORDERAB LES Final Result Performing Organization Address [facility] de Phone Number [facility] [address] [place] [phone] * HIV-1/2 Antigen and Antibodies, Fourth Generation, with Reflexes (03/01/2024 1:40 PM EST) Pathologist [facility] HIV AB/AG Nonreactive Nonreactive [facility] Comment:HIV-1 p24 Ag and/or HIV-1/HIV-2 Ab not detected.A test result that is nonreactive does not exclude thepossibility of exposure to or infection with HIV-1 and/orHIV-2. Nonreactive results in this assay for individualswith prior exposure to HIV-1 and/or HIV-2 may be due toantigen and antibody levels that are below the limit ofdetection of this assay.The [employer] HIV Ag/Ab Combo assay result andsupplemental assay results should be interpreted inconjunction with the patient's clinical presentation,history and other laboratory results. If the results areinconsistent with clinical evidence, additional testing issuggested to confirm the result. 03/01/2024 1:40 PM EST 03/01/2024 3:54 PM EST us Generic External Data Provider LAB BLOOD ORDERAB LES Final Result Performing Organization Address [facility] Co de Phone Number [facility] [address] [place] [phone] * Pap Smear (07/21/2023 10:28 AM EDT) 07/21/2023 10:2 8 AM EDT 07/25/2023 7:30 AM EDT [facility] - 08/12/2023 5:55 PM EDT ----- ------- Name: Dick BellamyTammyhernan Age/Sex: 22/F : 2000 Unit#: [id number] Attend Dr: Judith Bullock CNM Re07/21/23 Status: DEP REF Location: [place] Disch: ----- ------- SPEC : [id number] RECD: 07/25/23-729 STATUS: HENRY RIGGINS NUM: [id number] MELVIN: 07/21/23-1028 [facility] DR: Judith Bullock CNM ENTERED: 07/25/23-830 SP TYPE: Pap Smr OTHR DR: Susie Nascimento ORDERED: Pap Smear Interpretation Satisfactory for evaluation. Negative for intraepithelial lesion or malignancy. Clinical Information LMP: 06/30/23 Previous PAP test: No pap hx Material Received ThinPrep-Cervical Copies To: Judith Bullock CNM [address] [place] [address] Dr. Smith [address] [place] [address] Susie Nascimento [address] [place] [address] ----- ------- Signed (signature on file) Priti Wheeler 08/12/23 1755 ----- ------- END OF REPORT Generic External Data Provider LAB CYTOLOGY MORTEZA ROBERTS Final Result [facility] [address] [place] [address] [phone] from Last 3 Months or Most Recently Relevant to Health Maintenance [facility] [place] Care Teams Herbicide Sprayer Relationship Specialty Start Date End Date Carol Almaraz NP [address] [place] [address] PCP - General Family Medicine 08/04/23
--- OUTSIDE RECORDS SUMMARY | 2025-03-13 10:17 | XMS_ITS | Clinical Summary ---
Author Organization [facility] Address [address] [place] [address] Care Team Providers Care Personal Lines Account Executive Name Role Phone Unavailable Primary Care Provider Unavailabl e Social History Tobacco Use Types Packs/Day Years Used Date Smoking Tobacco: Never Assessed Comments Unknown Sex and Gender Information Value Date Recorded Sex Assigned at Not on file Legal Sex Female 10:55 PM EST Gender Identity Not on file Sexual Orientation Not on file Plan of Treatment Health Maintenance Due Date [...]
== END 2025-03-13 11:51 | disposition home or self-care (01) ==
LOC: HO.HWS 09:08
PROVIDERS: Visit Provider Advanced Practice Midwife
DX: D21.9 Benign neoplasm of connective and other soft tissue, unspecified (principal); N92.6 Irregular menstruation, unspecified; Z32.02 Encounter for pregnancy test, result negative
CPT/HCPCS: 99213

== ENCOUNTER 2025-03-13 10:23 | Outpatient (REF) | payer MEDICAID, SELFPAY ==
[2025-03-13 11:27] LABS: Hematocrit 36.2 % (37.0-47.0); Hemoglobin 11.9 g/dl (12.0-16.0); Mean Corpuscular HGB Conc 32.9 g/dl (31.0-35.0); Mean Corpuscular Hemoglobin 28.2 pg (27.0-33.0); Mean Corpuscular Volume 85.8 fL (80.0-98.0); NRBC Abs Auto 0.000 X10*3/uL (0.0-0.012); NRBC Pct Auto 0.0 /100WBC (0.0-0.2); Platelet Count 244 X10*3/uL (160-400); Red Blood Count 4.22 X10*6/uL (4.20-5.50); White Blood Count 7.7 X10*3/uL (4.8-10.8)
[2025-03-17 06:28] LABS: Vitamin D 25-OH, D2 <4 ng/mL; Vitamin D 25-OH, D3 25 ng/mL; Vitamin D 25-OH, Total 25 ng/mL (30-100)
== END 2025-03-13 10:24 | disposition home or self-care (01) ==
LOC: HO.LAB 10:23
PROVIDERS: Visit Provider Advanced Practice Midwife
DX: N92.6 Irregular menstruation, unspecified (principal)
CPT/HCPCS: 36415; 82306; 84443; 85027

== ENCOUNTER 2025-03-25 21:00 | Emergency (ER) | payer MEDICAID, SELFPAY ==
--- OUTSIDE RECORDS SUMMARY | 2025-03-25 20:46 | XMS_ITS | Encounter Summary ---
Author Organization [employer] Address [address] [place] [address] Care Team Providers Care Fisher Trawl Net Name Role Phone Unavailable Primary Care Provider Unavailabl e Encounter Details Date Type Department Care Team (Late st Contact Info) Description 03/25/2025 8:46 PM EST - 03/25/2025 8:57 PM EST Emergency [facility] Emergency [address] [place] [address] Discharge Disposition: Home or Self Care Social History Tobacco Use Types Packs/Day Years Used Date Smoking Tobacco: Never Assessed Comments Unknown Sex and Gender Information Value Date Recorded Sex Assigned at Not on file Legal Sex Female 10:55 PM EST Gender Identity Not on file Sexual Orientation Not on file documented as of this encounter Discharge Disposition Disposition Code Departure Means Destination Home or Self Care documented in this encounter Plan of Treatment Not on file documented as of this encounter Visit Diagnoses Not on filedocumented in this encounter
[2025-03-25 21:25] VITALS: BP 102/51; PULSE 73; RESP 18; TEMP 36.7; O2SAT 99; BMI 19.2
--- NOTE | 2025-03-25 21:48 | ED.GENADULT ---
HPI - General Adult General Chief complaint: Abdominal Pain Stated complaint: right lower abd pain Time Seen by Provider: 03/26/25 01:07 Source: patient, RN notes reviewed, old records reviewed and pie cutter Mode of arrival: ambulatory Limitations: language barrier History of Present Illness ED Provider: Tiffany PALOMINO narrative: 24-year-old female presents for evaluation of lower abdominal pain, vaginal bleeding. She reports that she has had vaginal bleeding for 2 months. She is being worked up for uterine fibroids. She does not believe she is pain Denies any fevers or chills pain Denies any abnormal vaginal discharge. She has had a previous tubal ligation 2 years ago She saw her OBGYN on 03/13/2025 Related Data Home Medications ?Medication ?Instructions ?Recorded ?Confirmed albuterol sulfate 90 mcg/actuation 1 inh inhalation Q4-6H PRN 03/24/20 03/13/25 breath activated powder inhaler Shortness Of Breath Or Wheezing Previous Rx's ?Medication ?Instructions ?Recorded ibuprofen 400 mg tablet 400 mg PO TID PRN fever or pain 06/05/24 #30 tabs medroxyprogesterone 150 mg/mL 150 mg IM [id number] 90 days #1 mL 01/16/25 intramuscular suspension (Depo-Provera) metronidazole 500 mg tablet 500 mg PO BID 7 days #14 tabs 03/24/25 tramadol 50 mg tablet 50 mg PO Q8H PRN severe pain 03/26/25 (scale score 7-10) #12 tabs Allergies Allergy/AdvReac Type Severity Reaction Status Date / Time No Known Allergies (No Known Allergy Verified 03/25/25 21:28 Allergies*) Review of Systems Constitutional: Constitutional: Denies body ache(s), Denies chills, Denies fever(s) and Denies headache(s) Eyes: Eyes: Denies blurry vision ENT: Denies dizziness, Denies dry mouth and Denies headache(s) Cardiovascular: Cardiovascular: Denies chest pain and Denies dyspnea on exertion Respiratory: Respiratory: Denies cough and Denies dyspnea on exertion Gastrointestinal: Gastrointestinal: Reports abdominal pain, Denies nausea and Denies vomiting Genitourinary: Comments: Reports vaginal bleeding Neurologic: Denies dizziness and Denies headache(s) [facility] Past Medical History Medical History Irregular bleeding Fibroid Post-tubal ligation syndrome Cervical cancer screening Depot contraception Lactating mother Acute vaginitis control counseling Vaginal discharge Abnormal uterine bleeding (AUB) Personal history of asthma COVID-19 History of depression Personal history of anxiety disorder Family history of asthma and other chronic lower respiratory diseases Surgical History Hx of tubal ligation History of retained foreign body fully removed (12/23/21) Family History Family History Maternal Grandmother Hx of breast cancer Diabetes mellitus Maternal Aunt No problems noted. Brother History of attention deficit hyperactivity disorder (ADHD) Daughter Family history of sickle cell trait Autism Mother Hydrocephalus Social History Social History Household Members: Children Housing: Apartment Are you a primary dialysis patient care technician to a significant other at home: No Do you presently have visiting nurse or other home services: No Alcohol intake: never Patient Tobacco Use Status: Never used Tobacco Smoked in Last 30 Days: No Use of substances other than those prescribed or required for medical reasons: No Agree to transfusion: Yes Advance Directives: No Advance Directives Information Provided: No Do you have a plan to hurt others: No Plan service: No Current occupational status: employed 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, 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 Gender identity: Female Physical Exam ED Vital Signs: Vital Signs - 24 hr 03/25/25 21:25 03/26/25 01:17 03/26/25 01:20 Temperature 98.1 F 98.4 F 98.4 F Pulse Rate 73 62 62 Respiratory Rate 18 20 20 Blood Pressure 102/51 L 104/62 104/62 Pulse Oximetry 99 100 100 Oxygen Delivery Method Room Air Room Air Room Air BMI result Body Mass Index 19.2 Const General: healthy appearing, comfortable, no acute distress, alert and awake Nutritional Appearance: well nourished Orientation/consciousness: patient oriented x3 HENMT Head: Yes normocephalic and Yes atraumatic Throat: Yes posterior oropharynx normal Eyes Eyelids: Yes eyelids normal Conjunctivae: conjunctivae normal Sclerae: sclerae normal Corneas: corneas normal Pupils: Equal, round and reactive pupils present EOM: EOMs intact bilaterally Neck Neck: Yes full ROM Resp Effort & Inspection: normal respiratory effort, able to speak in complete sentences and not labored GI Inspection: No distended Palpation (GI): Soft to palpation, not firm, nontender, no guarding and not rigid Skin General skin exam: elasticity normal Neuro General: patient oriented x3 Cranial nerves: Yes Equal, round and reactive pupils present and Yes Bilaterally intact EOM present Cognition (Neuro): normal cognition Extrem Other: Moving all extremities well without any obvious deformities Course Course Course Narrative: RME, this is a rapid medical exam performed by Neil Allen please refer to primary provider for complete H&P- 24-year-old female presents for evaluation abdominal pain with vaginal bleeding for several months. Plan for basic labs, testing. Medications Administered Discontinued Medications Generic Name Dose Route Start Last Admin Trade Name Freq PRN Reason Stop Dose Admin Acetaminophen 650 mg 03/26/25 01:00 03/26/25 01:06 Acetaminophen 325 Mg Tablet PO 03/26/25 01:01 650 mg ONCE ONE Administration Medical Decision Making Medical Decision Making [facility] Narrative: 24-year-old female presents for evaluation of abnormal uterine bleeding and lower abdominal pain. She is diagnosed with uterine fibroids. She is not . Therefore a low suspicion for ectopic . She has a tubal ligation. She was recently tested for gonorrhea and chlamydia was negative, she denies any vaginal discharge in his afebrile with no leukocytosis, I doubt PID. I do not see any indication for emergent imaging at this time. She is quite well appearing I also have a low suspicion for ovarian torsion. We will discharge the patient to follow up with her outpatient providers. She did start Depo-Provera less than 2 months ago. This is likely the cause of her dysmenorrhea. She has a mild, stable anemia and does not require a transfusion Differential Diagnosis Differential Diagnoses: The differential diagnosis associated with the presentation includes Dysmenorrhea Uterine fibroids Pelvic pain Menstrual cycle Lab Data [facility] Lab Attestation statement: I reviewed the patient's lab results. As above mild, stable anemia, no significant chemistry abnormalities. The patient is not 03/25/25 21:52 03/25/25 21:52 Labs: Lab Results 03/25/25 03/26/25 Range/Units 21:52 00:17 WBC 6.6 (4.8-10.8) X10*3/uL RBC 3.93 L (4.20-5.50) X10*6/uL Hgb 11.2 L (12.0-16.0) g/dl Hct 33.2 L (37.0-47.0) % MCV 84.5 (80.0-98.0) fL MCH 28.5 (27.0-33.0) pg MCHC 33.7 (31.0-35.0) g/dl RDW 13.2 (11.0-16.0) % Plt Count 226 (160-400) X10*3/uL MPV 11.4 (9.4-12.3) fL Immature Gran % (Auto) 0.3 (0.0-0.4) % Neut % (Auto) 60.4 (45-73) % Lymph % (Auto) 29.0 (20-40) % [place] % (Auto) 5.3 (2-11) % Eos % (Auto) 4.4 H (0-4) % Baso % (Auto) 0.6 (0-2) % Lymph # (Auto) 1.9 (1.2-4.9) X10*3/uL [place] # (Auto) 0.4 (0.1-1.2) X10*3/uL Eos # (Auto) 0.3 (0.0-0.4) X10*3/uL Baso # (Auto) 0.0 (0.0-0.2) X10*3/uL Abs Immat Gran (auto) 0.02 (0.00-0.03) X10*3/uL Absolute Neuts (auto) 4.0 (2.0-8.3) x10*3/uL Absolute Nucleated RBC 0.000 (0.0-0.012) X10*3/uL Nucleated RBC % (auto) 0.0 (0.0-0.2) /100WBC Sodium 142 (135-145) mmol/L Potassium 3.9 (3.3-5.1) mmol/L Chloride 111 H (96-108) mmol/L Carbon Dioxide 25 (22-29) mmol/L Anion Gap 10 L (12-20) BUN 9 (9-16) mg/dL Creatinine 0.74 (0.5-1.4) mg/dL Estim Creat Clear Calc 97.6 Estimated GFR > 60 Random Glucose 69 (60-115) mg/dL Calcium 8.6 (8.4-10.2) mg/dL Total Bilirubin 0.3 (0.0-1.0) mg/dL Direct Bilirubin 0.1 (0.0-0.5) mg/dL AST 15 (5-31) U/L ALT 18 (0-31) U/L Alkaline Phosphatase 68 (39-117) U/L Total Protein 6.7 (6.5-8.0) g/dL Albumin 4.3 (3.5-5.0) g/dL Lipase 15 (8-78) U/L Beta HCG, Quant < 2 mIU/mL Urine Color Yellow Urine Appearance Clear Urine pH 6.0 (5.0-9.0) Ur Specific [place] 1.025 (1.005-1.025) Urine Protein Trace (Neg-Trace) mg/dL Urine Glucose (UA) Negative (Negative) mg/dL Urine Ketones Trace (Negative) mg/dL Urine Blood Large (3+) H (Negative) Urine Nitrite Negative (Negative) Ur Leukocyte Esterase Negative (Negative) Urine RBC 0-2 (0-2) /HPF Urine WBC 0-5 (0-5) /HPF Ur Squamous Epith Cells 3-5 (0-2) /HPF Urine Bacteria 1+ (None Seen) Hyaline Casts 3-5 (0-2) /LPF Tests considered The following testing was considered but not selected: Considered pelvic ultrasound but ultimately felt that it was not indicated Discharge Plan Discharge Clinical Impression: Pelvic pain Patient Disposition: Home, Self-Care Instructions: Dysmenorrhea (ED), Uterine Fibroids (ED), Pelvic Pain (ED) Additional Instructions: Your workup in the ER today was reassuring. There was some evidence of blood in the urine which is likely from vaginal bleeding but no evidence of infection. You have a very mild anemia. I recommend that you follow up with your primary doctor in [place], there may benefit from an outpatient pelvic ultrasound Continue to use ibuprofen or Tylenol for pain. You may use tramadol for more severe, breakthrough pain This may make you sleepy, do not drink alcohol or drive after taking it Prescriptions: New tramadol 50 mg tablet 50 mg PO Q8H PRN (Reason: severe pain (scale score 7-10)) Qty: 12 0RF No Action metronidazole 500 mg tablet 500 mg PO BID 7 Days Qty: 14 0RF Rx Instructions: Take with food, Avoid alcohol and vinegar products ibuprofen 400 mg tablet 400 mg PO TID PRN (Reason: fever or pain) Qty: 30 0RF albuterol sulfate 90 mcg/actuation aerosol powdr breath activated 1 inh inhalation Q4-6H PRN (Reason: Shortness Of Breath Or Wheezing) medroxyprogesterone [Depo-Provera] 150 mg/mL suspension 150 mg IM [id number] 90 Days Qty: 1 1RF Interventions: ED Discharge Assessment Last Done: 03/26/25 01:20 Discharge Date/Time: 03/26/25 01:21 Print Language: Salvadorean
--- OUTSIDE RECORDS SUMMARY | 2025-03-25 21:53 | XMS_ITS | Clinical Summary ---
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 I have rose eran 08/06/[address] you li [...] Description 05/07/2025 9:30 AM EST Office Visit [facility] OPTOMETRY [address] [place] [address] Dottie Gross, OD [address] [place] [address] 05/21/2025 9:30 AM EST Office Visit [facility] MEDICINE [address] [place] [address] Carol Almaraz, MIS MANAGER [address] [place] [address] Health Maintenance Due Date Last Done Comments [...] Additional history exists COVID-19 Vaccine ( season) 2024 05/28/2021, 05/07/2021 [...] EST) CT PCR NOT DETECTED Not Detect. [facility] Comment:A not detected test result [...] psychologicalconsequences. NG PCR NOT DETECTED Not Detect. [facility] Comment:A not detected test result [...] medical, social or psychologicalconsequences. 04/03/2024 04/03/2024 Narrative [facility] - 04/04/2024 3:11 AM EST Vaginal Generic External Data Provider LAB MICROBIOLOGY - GENERAL ORDERABLES Final Result Performing Organization Address [facility] Co de Phone Number [facility] [address] [place] [phone] * Hepatitis C Ab (03/01/2024 1:40 PM EST) Hepatitis C Antibody Nonreactive Nonreactive [facility] Comment:Antibodies to HCV no t detected; does not exclude early acuteHCV infection. 03/01/2024 1:40 PM EST 03/01/2024 3:54 PM EST Generic External Data Provider LAB BLOOD ORDERAB LES Final Result Performing Organization Address [facility] Phone Number [facility] [address] [place] [phone] * HIV-1/2 Antigen and Antibodies, Fourth Generation, with Reflexes (03/01/2024 1:40 PM EST) HIV AB/AG Nonreactive Nonreactive [facility] Comment:HIV-1 p24 Ag and/or HIV-1/HIV-2 Ab not detected.A test result that is nonreactive does not exclude thepossibility of exposure to or infection with HIV-1 and/orHIV-2. Nonreactive results in this assay for individualswith prior exposure to HIV-1 and/or HIV-2 may be due toantigen and antibody levels that are below the limit ofdetection of this assay.The [employer] HIV Ag/Ab Combo assay result andsupplemental assay results should be interpreted inconjunction with the patient's clinical presentation,history and other laboratory results. If the results areinconsistent with clinical evidence, additional testing issuggested to confirm the result. 03/01/2024 1:40 PM EST 03/01/2024 3:54 PM EST us Generic External Data Provider LAB BLOOD ORDERAB LES Final Result [facility] [address] [place] [phone] * Pap Smear (07/21/2023 10:28 AM EDT) 07/21/2023 10:2 8 AM EDT 07/25/2023 7:30 AM EDT Nereida [facility] - 08/12/2023 5:55 PM EDT ----- ------- Name: Ashanti Ontiveros Age/Sex: 22/F : 2000 Unit#: [id number] Attend Dr: Judith Bullock CNM Re07/21/23 Status: DEP [facility] ----- ------- SPEC : [id number] RECD: 07/25/23 STATUS: HENRY RIGGINS NUM: [id number] MELVIN: 07/21/23-8 [facility] DR[facility] ENTERED: 07/25/23 SP TYPE: Pap [facility] ORDERED: Pap Smear Interpretation Satisfactory for evaluation. Negative for intraepithelial lesion or malignancy. Clinical Information LMP: 06/30/23 Previous PAP test: No pap hx Material Received ThinPrep-Cervical Copies To: Judith Bullock[address] Smith [address] [place] [address] [facility] [address] [place], [place] [phone] ----- ------- Signed (signature on file) Priti Wheeler 08/12/23 [id number] ----- ------- END OF REPORT us Generic External Data Provider LAB CYTOLOGY MORTEZA ROBERTS Final Result [facility] [address] [place] [address] [phone] from Last 3 Months or Most Recently Relevant to Health Maintenance Insurance [place] C3 [facility] MEDICAID STAND ADULT [place]-[facility] MEDICAID STAND ADULT Care Teams Log Truck Driver Relationship Specialty Start Date End Date Carol Almaraz NP [address] [place] [phone] PCP - General Family Medicine 08/04/23
--- OUTSIDE RECORDS SUMMARY | 2025-03-25 21:53 | XMS_ITS | Clinical Summary ---
Author Organization [facility] it Address [address] [place] [address] Care Team Providers Care Client Account Representative Name Role Phone Unavailable Primary Care Provider Unavailabl e Encounters Date Type Department Care Team Description 03/25/2025 8:46 PM EST - 03/25/2025 8:57 PM EST Emergency [facility] Emergency [address] [place] [address] Discharge Disposition: Home or Self Care from Last 3 Months Social History Tobacco Use Types Packs/Day Years Used Date Smoking Tobacco: Never Assessed Comments Unknown Sex and Gender Information Value Date Recorded Sex Assigned at Not on file Legal Sex Female 10:55 PM EST Gender Identity Not on file Sexual Orientation Not on file Plan of Treatment Health Maintenance Due Date Last Done Comments Gonorrhea/Chlamydia Screening 2001 04/03/2024 HPV Vaccines (1 - 3-dose series) 2016 06/01/2018, 01/19/2017, 11/17/2016 Meningococcal B Vaccine (1 of 2 - Standard) 2017 DTaP,Tdap,and Td Vaccines (1 - Tdap) 2020 09/24/2012, 09/24/2012, 10/22/2005, Additional history exists Hepatitis B Vaccines (1 of 3 - 19+ 3-dose series) 2020 09/18/2002, 01/02/2002, 2001 Cervical Cancer Screening: Pap Smear 2022 07/21/2023 Depression Screening 03/27/2024 COVID-19 Vaccine (1 - 2024- season) 2024 05/28/2021, 05/07/2021 Influenza Vaccine (#1) 2024 , 06/07/2019, 04/03/2012 RSV Immunization Adult Patients (1 - 1-dose 75+ series) 2076 HIB Vaccines Aged Out 12/18/2002, 11/2001, 2001 No longer eligible based on patient's age to complete this topic Hepatitis A Vaccines Aged Out 04/22/2011, 10/21/19 11 No longer eligible based on patient's age to complete this topic IPV Vaccines Aged Out 10/22/2005, 02/24, 01/02/2002, Additional history exists No longer eligible based on patient's age to complete this topic MMR Vaccines Aged Out 10/22/2005, 09/18/2002 No lo nger eligible based on patient's age to complete this topic Meningococcal ACWY Vaccine Aged Out 06/01/2018, No longer eligible based on patient's age to complete this topic Pneumococcal Vaccine: Pediatrics (0 to 5 Years) and At-Risk Patients (6 to 49 Years) Aged Out 09/18/2002, 05/22/2002, 03/06/2002 No longer eligible based on patient's age to complete this topic RSV Immunization Patients Under 20 months Aged Out No longer eligible based on patient's age to complete this topic Varicella Vaccines Aged Out 10/20/2010, 07/09/2003 No longer eligible based on patient's age to complete this topic
--- OUTSIDE RECORDS SUMMARY | 2025-03-25 21:53 | XMS_ITS | Encounter Summary ---
Author Organization [email or web address] Address [address] [place] [address] Care Team Providers Care Digital Specialist Name Role Phone Carol Almaraz NP Primary Care Provider [phone] Reason for Visit * Reason Onset Date Comments Appointment Request 03/13/2025 Encounter Details Date Type Department Care Team ([facility] st Contact Info) Description 03/13/2025 Telephone [facility] MEDICINE [address] [place] [address] Carol Almaraz NP [address] [place] [address] Appointment Request Social History Tobacco Use Types Packs/Day Years [...] encounter Miscellaneous Notes * Telephone Encounter - [place] Lowe - 03/13/2025 10:43 AM EST Tc from pt requesting a follow-up appointment to check her thyroid. 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 documented in this encounter Plan of Treatment Upcoming Encounters Date Type Department Care Team (Late st Contact Info) Description 05/07/2025 9:30 AM EST Office Visit [facility] OPTOMETRY [address] [place] [address] Renato, Dottie, OD [address] [place] [address] 05/21/2025 9:30 AM EST Office Visit [facility] MEDICINE [address] [place] [address] Carol Almaraz NP [address] [place] [address] documented as of this encounter Visit Diagnoses Not on filedocumented in this encounter Additional Health Concerns Assessment Noted Time PHQ-9 Depression Total Score: 2 08/07/19 25 1:30 PM EDT documented as of this encounter Care Teams Digital Specialist Relationship Specialty Start Date End Date Carol Almaraz NP [address] [place] [address] PCP - General Family Medicine 08/04/23 documented as of this encounter
[2025-03-25 21:56] LABS: MANUAL DIFF FLAG NO
[2025-03-25 21:57] LABS: Hematocrit 33.2 % (37.0-47.0); Hemoglobin 11.2 g/dl (12.0-16.0); Imm Gran Abs Auto 0.02 X10*3/uL (0.00-0.03); Imm Gran Pct Auto 0.3 % (0.0-0.4); Lymphocytes Absolute Auto 1.9 X10*3/uL (1.2-4.9); Mean Corpuscular HGB Conc 33.7 g/dl (31.0-35.0); Mean Corpuscular Hemoglobin 28.5 pg (27.0-33.0); Mean Corpuscular Volume 84.5 fL (80.0-98.0); NRBC Abs Auto 0.000 X10*3/uL (0.0-0.012); NRBC Pct Auto 0.0 /100WBC (0.0-0.2); Platelet Count 226 X10*3/uL (160-400); Red Blood Count 3.93 X10*6/uL (4.20-5.50); White Blood Count 6.6 X10*3/uL (4.8-10.8)
[2025-03-25 22:11] LABS: Alanine Aminotransferase 18 U/L (0-31); Albumin Level 4.3 g/dL (3.5-5.0); Alkaline Phosphatase 68 U/L (39-117); Anion Gap 10 (12-20); Aspartate Amino Transferase 15 U/L (5-31); Blood Urea Nitrogen 9 mg/dL (9-16); Calcium 8.6 mg/dL (8.4-10.2); Carbon Dioxide 25 mmol/L (22-29); Chloride 111 mmol/L (96-108); Creatinine Clr Calc Pharmacy 97.6; Estimated Glomerular Filt Rate > 60; Lipase 15 U/L (8-78); Potassium 3.9 mmol/L (3.3-5.1); Sodium 142 mmol/L (135-145); Total Protein 6.7 g/dL (6.5-8.0)
[2025-03-26 00:32] LABS: Appearance Urine Clear; Glucose Urine UA Negative (Negative); PH 6.0 (5.0-9.0); Specific Gravity - Urine 1.025 (1.005-1.025); UMIC TRIGGER UACC YES
[2025-03-26 01:17] VITALS: BP 104/62; PULSE 62; RESP 20; TEMP 36.9; O2SAT 100
--- NOTE | 2025-03-26 01:19 | PC.NURSE ---
reviewed discharge instructions with pt. pt verbalized understanding, no sign of distress.
[2025-03-26 01:20] VITALS: BP 104/62; PULSE 62; RESP 20; TEMP 36.9; O2SAT 100
== END 2025-03-26 01:21 | disposition home or self-care (01) ==
PROVIDERS: Emergency Provider Emergency Medicine
DX: R10.21 Pelvic and perineal pain right side (principal)
CPT/HCPCS: 36415; 80048; 80076; 81001; 83690; 84702; 85025; 99283; 99284